=== PATIENT | male | born 1975 | race Caucasian/White ===

== ENCOUNTER 2024-04-17 18:52 | Inpatient (IN) ==
--- NOTE | 2024-04-17 19:10 | Emergency Department Note ---
Impression & Plan Sepsis, Pneumonia, Leukocytosis, Elevated procalcitonin ED Provider Note HISTORY OF PRESENT ILLNESS: Patient is a 48-year-old male presenting with cough and fevers. Patient reports for the last 3 to 4 days he has been having flulike symptoms. Reports he had a fever up to 102. He states that he had a very bad night last night and was unable to sleep. Reports that he has pain in his left lower chest and it hurts to take a deep breath. Reports he has a cough productive of white-colored sputum. Denies any hemoptysis. Denies any DVT or PE history. He denies any anticoagulation or antiplatelet use. He reports that he last took a dose of antipyretic Tylenol at 1 PM. He reports that his entire chest hurts. He denies any recent sick contact exposures that he knows of. Denies any nausea or vomiting. ROS: as above PHYSICAL EXAM: Constitutional: Patient appears in no acute distress. HENT: Head: Normocephalic and atraumatic. Eyes: EOMI, PERRL Mouth/Throat: Mucous membranes moist. Neck: Trachea midline. Neck supple. Cardiovascular: RRR, No murmurs, rubs or gallops. Intact distal pulses. Pulmonary/Chest: No respiratory distress. Breath sounds clear and equal bilaterally. No wheezes or rales. Abdominal: Abdomen soft, no tenderness, rebound or guarding. Musculoskeletal: No edema, tenderness or deformity noted. Skin: Warm and dry. No rash, erythema, pallor or cyanosis Psychiatric: Appropriate mood and affect for situation. Neurological: Alert and keenly responsive. CN II-XII grossly intact, moving all extremities equally and fully. MDM: - Vitals signs showed hypertension and tachycardia. - History obtained via patient. History as above. - Chronic conditions affecting care: paraplegia (s/p T8 spinal cord injury); urinary incontinence; GERD - Differential diagnoses include, but are not limited to: pneumonia; PE; viral syndrome; ACS; pulmonary edema - Order placed for continuous cardiac monitoring. At this time, monitor showed rate of 93 bpm with normal sinus rhythm, per my interpretation. - External medical records reviewed. - EKG image interpreted by myself showed normal sinus rhythm. Rate 92 bpm. QT 332. No acute ischemic changes. - Laboratory workup interpreted by myself showed leukocytosis (WBC 13.58); normal PT/INR; normal lactate; stable electrolytes; normal troponin; normal AST/ALT; elevated procalcitonin (1.5) - Viral respiratory panel negative - CXR image reviewed by myself showed left lower lobe pneumonia, per my interpretation. Radiology confirms a left lower lobe airspace opacity but also notes a right middle lobe opacification concerning for pneumonia. - Blood cultures obtained - Patient given 2.5L NS. Patient's sepsis fluid volume calculation based on ideal body weight is 2427.00 mL - Patient started on IV vancomycin and rocephin for sepsis coverage. - Discussion was had with returned case inspector about patient's case and need for admission - Hospitalist, Dr. Hough, consulted for admission - Patient admitted to [facility] service for further evaluation and management. I have personally spent 33 minutes of critical care time in the direct management of this patient. This includes bedside care, interpretation of diagnostic studies, and testing, discussion with consultants, patient, and family members, and other required patient management activities. This 33 minutes is in excess of all separately billable procedures. 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 NO SENSATION FROM T8 DOWN. Nerve pain REASON FOR GABAPENTIN Surgical History Fusion of spine T4-T11 History of tooth extraction Hx of LASIK S/P Botox injection TO BLADDER IN PAST Family History Father Family history of diabetes mellitus Social History Smoking Status: Never smoker Second Hand Exposure: No; Do You Dip or Chew Tobacco: No; Hx Alcohol Use: Yes Alcohol type: beer and hard liquor Hx Substance Use: No Preferred Language: Omani Communication Ability: Effective Research Rn Spec Required: No Beliefs That Will Affect Care: None Current Living Situation: Alone Feels Safe at Home: Yes Assistive Devices: Wheelchair Allergies Allergies Allergy/AdvReac Type Severity Reaction Status Date / Time Penicillins Allergy Intermediate HIVES Verified 09/30/18 05:56 Home Meds Home Medications Medication Instructions Recorded Confirmed Medical Marijuana 1 dose inhalation UD PRN NEEDED 09/23/18 09/30/18 acyclovir 400 mg tablet 400 mg PO BID 09/23/18 09/30/18 ascorbic acid (vitamin C) 500 mg 500 mg PO DAILY 09/23/18 09/30/18 tablet (Vitamin C) cranberry extract-vitamin C 250 1 cap PO DAILY 09/23/18 09/30/18 mg-60 mg capsule docusate sodium 100 mg tablet 100 mg PO BID 09/23/18 09/30/18 gabapentin 600 mg tablet 600 mg PO TID 09/23/18 09/30/18 oxybutynin chloride 10 mg 10 mg PO BID 09/23/18 09/30/18 tablet,extended release 24 hr oxycodone 5 mg tablet 5 mg PO Q4H PRN Pain 09/23/18 09/30/18 ranitidine HCl 150 mg tablet 150 mg PO BID 09/23/18 09/23/18 Previous Rx's Medication Instructions Recorded phenazopyridine 200 mg tablet 200 mg PO Q8H PRN pain #9 tabs 09/30/18 (Pyridium) Results & Data (ED) Vital Signs Vital Signs - 24 hr 04/17/24 18:52 04/17/24 18:52 04/17/24 18:55 Temperature 36.5 C Temperature Source Oral Pulse Rate 104 H Pulse Rate [Left Apical] Respiratory Rate 18 Respiratory Effort / Characteristics Non-Labored Spontaneous Respiratory Depth Normal Respiratory Pattern Regular Blood Pressure 146/73 H Blood Pressure [Right Arm] Blood Pressure Mean 97 Blood Pressure Mean [Right Arm] Blood Pressure Position Sitting Blood Pressure Position [Right Arm] Pulse Oximetry 95 96 Oxygen Delivery Method Room Air Room Air Room Air Sepsis Recent Fever Within 48 Hours Yes Sepsis New/Unexplained Change in Mental Status N/A Sepsis Action Taken by Nursing No Action Required 04/17/24 19:04 04/17/24 19:08 04/17/24 20:04 Temperature Temperature Source Pulse Rate 97 H Pulse Rate [Left Apical] 95 H Respiratory Rate 17 Respiratory Effort / Characteristics Non-Labored Spontaneous Respiratory Depth Normal Respiratory Pattern Regular Blood Pressure Blood Pressure [Right Arm] 114/64 Blood Pressure Mean Blood Pressure Mean [Right Arm] 80 Blood Pressure Position Blood Pressure Position [Right Arm] Semi-fowlers Pulse Oximetry 95 98 Oxygen Delivery Method Room Air Room Air Sepsis Recent Fever Within 48 Hours Sepsis New/Unexplained Change in Mental Status Sepsis Action Taken by Nursing Laboratory Data 04/17/24 19:15 04/17/24 19:15 Lab Results 04/17/24 04/17/24 Range/Units 19:15 19:59 WBC 13.58 H (4.8-10.8) K/ul RBC 4.46 L (4.70-6.10) M/uL Hgb 13.3 L (14.0-18.0) g/dl Hct 39.2 L (42.0-52.0) % MCV 87.9 (80.0-100.0) fL MCH 29.8 (25.0-34.0) pg MCHC 33.9 (32.0-36.0) g/dL RDW Std Deviation 43.3 (36.4-46.3) fL RDW Coeff of Michael 13.3 (11.5-14.5) % Plt Count 366 (130-400) K/uL MPV 10.2 (9.4-12.4) fL Immature Gran % (Auto) 0.4 % Neut % (Auto) 79.0 % Lymph % (Auto) 11.6 % [place] % (Auto) 6.8 % Eos % (Auto) 1.5 % Baso % (Auto) 0.7 % Neut # (Auto) 10.72 H (1.40-6.50) K/uL Lymph # (Auto) 1.57 (1.20-3.40) K/uL [place] # (Auto) 0.92 H (0.11-0.59) K/uL Eos # (Auto) 0.21 (0.00-0.50) K/uL Baso # (Auto) 0.10 (0.00-0.20) K/uL Immature Gran # (Auto) 0.06 (0.01-0.20) K/uL PT 10.9 (9.0-12.0) Seconds INR 1.0 (0.9-1.1) Sodium 135 L (136-145) mmol/L Potassium 3.7 (3.5-5.1) mmol/L Chloride 103 (98-107) mmol/L Carbon Dioxide 27 (21-32) mmol/L Anion Gap 5 (3-11) BUN 14 (6-23) mg/dl Creatinine 0.83 (0.6-1.4) mg/dl Est Cr Clr Drug Dosing 118.2 ml/min eGFR 107.29 BUN/Creatinine Ratio 16.9 (10-20) Glucose 134 H (70-99(Fasting)) mg/dl Lactate 1.3 (0.4-2.0) mmol/L Calcium 9.3 (8.6-10.3) mg/dl Magnesium 2.1 (1.7-2.4) mg/dl Total Bilirubin 0.6 (0.2-1.0) mg/dl AST 23 (13-39) U/L ALT 30 (7-52) U/L Alkaline Phosphatase 114 H (34-104) U/L Troponin I High Sens 6.4 (0-20) pg/ml Total Protein 7.7 (6.0-8.3) gm/dl Albumin 3.7 (3.4-5.0) gm/dl Globulin 4.0 (2.5-4.0) gm/dl Albumin/Globulin Ratio 0.9 (0.9-2) Procalcitonin 1.50 H (0-0.5) ng/ml Adenovirus (PCR) Not Detected (NotDetected) B. pertussis DNA (PCR) Not Detected (NotDetected) B.parapertussis DNA PCR Not Detected (NotDetected) C. pneumoniae DNA (PCR) Not Detected (NotDetected) Coronavirus OC43 (PCR) Not Detected (NotDetected) Coronavirus HKU1 (PCR) Not Detected (NotDetected) Coronavirus 229E (PCR) Not Detected (NotDetected) SARS-CoV-2 (PCR) Not Detected (NotDetected) Coronavirus NL63 (PCR) Not Detected (NotDetected) Human Metapneumovir PCR Not Detected (NotDetected) Influenza Type A (PCR) Not Detected (NotDetected) Influenza Type B (PCR) Not Detected (NotDetected) M. pneumoniae (PCR) Not Detected (NotDetected) Parainfluenza 1 (PCR) Not Detected (NotDetected) Parainfluenza 2 (PCR) Not Detected (NotDetected) Parainfluenza 3 (PCR) Not Detected (NotDetected) Parainfluenza 4 (PCR) Not Detected (NotDetected) RSV (PCR) Not Detected (NotDetected) Entero/Rhino (PCR) Not Detected (NotDetected) Administered Medications Sodium Chloride (Nss) 2,000 mls @ 999 mls/hr IV .Q2H1M ONE Stop: 04/17/24 21:50 Last Admin: 04/17/24 20:10 Dose: 999 mls/hr Documented By: [facility] Imaging Data Radiologist's Impression: Chest X-Ray 04/17/24 19:04 HISTORY: Dyspnea TECHNIQUE: Portable AP radiograph of the chest. COMPARISON: None. FINDINGS: Patchy left lower lung opacity concerning for pneumonia. Right middle lobe opacity could also represent pneumonia. No pneumothorax or effusion. Normal heart size. Left-sided aortic arch. Midline trachea. Thoracic spine fusion hardware. Mild thoracic dextrocurvature. No acute osseous abnormality IMPRESSION: * Patchy left lower lobe airspace opacity concerning for pneumonia. Right middle lobe opacification could also represent pneumonia. * Normal heart size. Electronically signed by Sorin Mcadams 04-17-2024 7:29 PM Discharge Plan Visit Data Chief Complaint: Shortness of Breath/Dyspnea Stated Complaint: FEVER, SOB, HURTS WHEN TAKES A BREATH ED Provider: Prachi Montgomery Discharge Problem: Sepsis, Pneumonia, Leukocytosis, Elevated procalcitonin Forms Stand Alone Forms: [email or web address] Prescriptions Prescriptions: No Action gabapentin 600 mg Tablet 600 mg PO TID oxybutynin chloride 10 mg Tablet Extended Release 24hr 10 mg PO BID acyclovir 400 mg Tablet 400 mg PO BID ascorbic acid (vitamin C) [Vitamin C] 500 mg Tablet 500 mg PO DAILY ranitidine HCl 150 mg Tablet 150 mg PO BID docusate sodium 100 mg Tablet 100 mg PO BID oxycodone 5 mg Tablet 5 mg PO Q4H PRN (Reason: Pain) cranberry extract-vitamin C 250-60 mg Capsule 1 cap PO DAILY Medical Marijuana 1 dose inhalation UD PRN (Reason: NEEDED) Rx Instructions: USES VIA VAPING phenazopyridine [Pyridium] 200 mg tablet 200 mg PO Q8H PRN (Reason: pain) Qty: 9 0RF Referrals Referrals: Rigoberto Rodriguez MD [Primary Care Provider] -
--- NOTE | 2024-04-17 19:29 | XRay Report ---
HISTORY: Dyspnea TECHNIQUE: Portable AP radiograph of the chest. COMPARISON: None. FINDINGS: Patchy left lower lung opacity concerning for pneumonia. Right middle lobe opacity could also represent pneumonia. No pneumothorax or effusion. Normal heart size. Left-sided aortic arch. Midline trachea. Thoracic spine fusion hardware. Mild thoracic dextrocurvature. No acute osseous abnormality IMPRESSION: * Patchy left lower lobe airspace opacity concerning for pneumonia. Right middle lobe opacification could also represent pneumonia. * Normal heart size. Electronically signed by Sorin Mcadams 04-17-2024 7:29 PM
[2024-04-17 19:43] LABS: Basophils % (auto) 0.7 %; Eosinophils # (auto) 0.21 K/uL (0.00-0.50); Eosinophils % (auto) 1.5 %; Hematocrit (blood only) 39.2 % (42.0-52.0); Hemoglobin 13.3 g/dl (14.0-18.0); Immature Granulocytes # (auto) 0.06 K/uL (0.01-0.20); Immature Granulocytes % (auto) 0.4 %; Lymphocytes # (auto) 1.57 K/uL (1.20-3.40); Lymphocytes % (auto) 11.6 %; Mean Corpuscular Hemoglobin 29.8 pg (25.0-34.0); Mean Corpuscular Hgb Conc 33.9 g/dL (32.0-36.0); Mean Corpuscular Volume 87.9 fL (80.0-100.0); Mean Platelet Volume 10.2 fL (9.4-12.4); Monocytes # (auto) 0.92 K/uL (0.11-0.59); Monocytes % (auto) 6.8 %; Neutrophils # (auto) 10.72 K/uL (1.40-6.50); Platelet Count 366 K/uL (130-400); RDW Coefficient of Variation 13.3 % (11.5-14.5); RDW Standard Deviation 43.3 fL (36.4-46.3); Red Blood Count 4.46 M/uL (4.70-6.10); White Blood Count 13.58 K/ul (4.8-10.8)
[2024-04-17 19:48] LABS: Albumin Globulin Ratio 0.9 (0.9-2); Albumin Level 3.7 gm/dl (3.4-5.0); BUN Creatinine Ratio 16.9 (10-20); Bilirubin,Total 0.6 mg/dl (0.2-1.0); Calcium 9.3 mg/dl (8.6-10.3); Creatinine Clr Calc Pharmacy 118.2 ml/min; Magnesium 2.1 mg/dl (1.7-2.4); Potassium 3.7 mmol/L (3.5-5.1); Total Protein 7.7 gm/dl (6.0-8.3)
[2024-04-17 19:55] LABS: Prothrombin Time 10.9 Seconds (9.0-12.0); Troponin I High Sensitivity 6.4 pg/ml (0-20)
[2024-04-17] MEDS: SODIUM CHLORIDE 0.9% 2,000 ML IV ONE (20:10)
[2024-04-17 20:20] LABS: Adenovirus PCR Not Detected (NotDetected); Bordetella parapertussis PCR Not Detected (NotDetected); Bordetella pertussis PCR Not Detected (NotDetected); Chlamydia pneumoniae PCR Not Detected (NotDetected); Coronavirus 229E PCR Not Detected (NotDetected); Coronavirus CoV-2 (COVID19)PCR Not Detected (NotDetected); Coronavirus HKU1 PCR Not Detected (NotDetected); Coronavirus NL63 PCR Not Detected (NotDetected); Coronavirus OC43PCR Not Detected (NotDetected); Human Metapneumovirus PCR Not Detected (NotDetected); Influenza A PCR Not Detected (NotDetected); Influenza B PCR Not Detected (NotDetected); Mycoplasma pneumoniae PCR Not Detected (NotDetected); Parainfluenza Virus 1 PCR Not Detected (NotDetected); Parainfluenza Virus 2 PCR Not Detected (NotDetected); Parainfluenza Virus 3 PCR Not Detected (NotDetected); Parainfluenza Virus 4 PCR Not Detected (NotDetected); Respiratory Syncytial VirusPCR Not Detected (NotDetected); Rhinovirus/Enterovirus PCR Not Detected (NotDetected)
[2024-04-17] MEDS ORDERED: VANCOMYCIN CONSULT ACTIVE PRN (20:29)
[2024-04-17] MEDS: cefTRIAXone SODIUM 2,000 MG/50 ML BAG IV STA (21:52)
[2024-04-17] MEDS: VANCOMYCIN HCL 1,500 MG in SODIUM CHLORIDE 0.9% 500 ML IV ONE (21:52)
[2024-04-17] MEDS: NSS + 20MEQ KCL 20 MEQ/1,000 ML BAG IV ONE (21:52)
[2024-04-17] MEDS: SODIUM CHLORIDE 0.9% 1,000 ML IV ONE (21:53)
[2024-04-17] MEDS: SODIUM CHLORIDE 0.9% 500 ML IV ONE (21:53)
[2024-04-17] MEDS: AZITHROMYCIN 250 MG TAB PO ONE (21:53)
--- NOTE | 2024-04-17 22:47 | History & Physical Report ---
Date of Service April 17, 2024 Assessment & Plan (1) Sepsis: Plan: Sepsis secondary to community-acquired pneumonia Rule out PE given pruritic chest pain complaints hyperlipidemia, not on statin Rx neurogenic bladder/paraplegia secondary to traumatic thoracic spinal cord injury GERD, stable on H2 kevin genital herpes on chronic HSV Rx Hyperglycemia rule out DM New onset anemia, patient denies overt bleed symptoms Admit to medical telemetry CS, ceftriaxone, doxycycline CT chest PE study Anemia workup, patient currently refusing to sign blood consent for prospective blood transfusion Check hemoglobin A1c DVT prophylaxis with Lovenox subcu Full code Text document was generated using [employer] voice recognition software. It may contain grammatical or spelling errors. Kindly contact undersigned for clarification of any documentation item in question. History of Present Illness Chief Complaint: Cough, shortness of breath Primary Care Provider: Rigoberto Rodriguez MD History obtained from patient and records. 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 Few days history of junky cough symptoms associated with fever chills. Pleuritic chest pain associated with SOB. Denies aspiration. Denies abdominal pain/hematuria/black/bloody stools. Not sure about sick contacts. Vancomycin, ceftriaxone and azithromycin administered at the ER. 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 Allergies Allergy/AdvReac Type Severity Reaction Status Date / Time Penicillins Allergy Intermediate HIVES Verified 04/17/24 20:49 Home Medications Medication Instructions Recorded Confirmed Type Medical Marijuana 1 dose inhalation UD PRN NEEDED 09/23/18 04/17/24 History acyclovir 400 mg tablet 400 mg PO BID 09/23/18 04/17/24 History oxybutynin chloride 10 mg 10 mg PO BID 09/23/18 04/17/24 History tablet,extended release 24 hr oxycodone 5 mg tablet 5 mg PO Q4H PRN Pain 09/23/18 04/17/24 History famotidine 20 mg tablet 20 mg PO BID 04/17/24 04/17/24 History gabapentin 300 mg capsule 600 mg PO TID 04/17/24 04/17/24 History Past Med/Surg History Problem List (Updated 04/17/24 @ 20:41 by Prachi Montgomery MD) Elevated procalcitonin (Acute) Leukocytosis (Acute) Pneumonia (Acute) Sepsis (Acute) Encounter for pre-operative examination 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 NO SENSATION FROM T8 DOWN. Nerve pain REASON FOR GABAPENTIN Surgical History Fusion of spine T4-T11 History of tooth extraction Hx of LASIK S/P Botox injection TO BLADDER IN PAST Family History Father Family history of diabetes mellitus Social History Smoking Status: Never smoker Second Hand Exposure: No; Do You Dip or Chew Tobacco: No; Hx Alcohol Use: No Hx Substance Use: No Preferred Language: Botswanan Communication Ability: Effective [facility] Consultant Required: No Beliefs That Will Affect Care: None Current Living Situation: Alone Feels Safe at Home: Yes Safety Concerns: Feels Safe At This Time Assistive Devices: Glasses and Wheelchair Review of Systems Review of Systems: As per HPI, all other systems reviewed and negative Physical Exam Physical Exam: GENERAL: Slightly uncomfortable, no respiratory distress SKIN: Pallor, warm HEENT: Pale palpebral conjunctivae, no ptosis, dry buccal mucosa NECK : Supple, no tenderness CHEST : Decreased breath sounds, no tenderness HEART : Tachycardic, no obvious murmurs ABDOMEN: Some distention, nontender RECTAL : Refused EXTREMITIES : No LE swelling/tenderness, palpable pulses, no other conspicuous deformities noted NEUROLOGIC : Coherent, no facial asymmetry, MMTS BUE 4/5, BLE 0, episodic RLE spasm, gait and stance not assessed Results & Data Results & Data Vital Signs (Past 12 Hours) Vital Signs Temp Pulse Pulse Resp BP BP Pulse Ox 04/17/24 20:04 95 H 17 114/64 98 04/17/24 19:08 97 H 04/17/24 19:04 95 04/17/24 18:55 36.5 C 104 H 18 146/73 H 96 04/17/24 18:52 95 04/17/24 18:52 O2 Del Method 04/17/24 20:04 Room Air 04/17/24 19:08 04/17/24 19:04 Room Air 04/17/24 18:55 Room Air 04/17/24 18:52 Room Air 04/17/24 18:52 Room Air Laboratory Results Laboratory Results WBC 13.58 K/ul (4.8-10.8) H 04/17/24 19:15 RBC 4.46 M/uL (4.70-6.10) L 04/17/24 19:15 Hgb 13.3 g/dl (14.0-18.0) L 04/17/24 19:15 Hct 39.2 % (42.0-52.0) L 04/17/24 19:15 MCV 87.9 fL (80.0-100.0) 04/17/24 19:15 MCH 29.8 pg (25.0-34.0) 04/17/24 19:15 MCHC 33.9 g/dL (32.0-36.0) 04/17/24 19:15 RDW Std Deviation 43.3 fL (36.4-46.3) 04/17/24 19:15 RDW Coeff of Michael 13.3 % (11.5-14.5) 04/17/24 19:15 Plt Count 366 K/uL (130-400) 04/17/24 19:15 MPV 10.2 fL (9.4-12.4) 04/17/24 19:15 Immature Gran % (Auto) 0.4 % 04/17/24 19:15 Neut % (Auto) 79.0 % 04/17/24 19:15 Lymph % (Auto) 11.6 % 04/17/24 19:15 [place] % (Auto) 6.8 % 04/17/24 19:15 Eos % (Auto) 1.5 % 04/17/24 19:15 Baso % (Auto) 0.7 % 04/17/24 19:15 Neut # (Auto) 10.72 K/uL (1.40-6.50) H 04/17/24 19:15 Lymph # (Auto) 1.57 K/uL (1.20-3.40) 04/17/24 19:15 [place] # (Auto) 0.92 K/uL (0.11-0.59) H 04/17/24 19:15 Eos # (Auto) 0.21 K/uL (0.00-0.50) 04/17/24 19:15 Baso # (Auto) 0.10 K/uL (0.00-0.20) 04/17/24 19:15 Immature Gran # (Auto) 0.06 K/uL (0.01-0.20) 04/17/24 19:15 PT 10.9 Seconds (9.0-12.0) 04/17/24 19:15 INR 1.0 (0.9-1.1) 04/17/24 19:15 Sodium 135 mmol/L (136-145) L 04/17/24 19:15 Potassium 3.7 mmol/L (3.5-5.1) 04/17/24 19:15 Chloride 103 mmol/L (98-107) 04/17/24 19:15 Carbon Dioxide 27 mmol/L (21-32) 04/17/24 19:15 Anion Gap 5 (3-11) 04/17/24 19:15 BUN 14 mg/dl (6-23) 04/17/24 19:15 Creatinine 0.83 mg/dl (0.6-1.4) 04/17/24 19:15 Est Cr Clr Drug Dosing 118.2 ml/min 04/17/24 19:15 eGFR 107.29 04/17/24 19:15 BUN/Creatinine Ratio 16.9 (10-20) 04/17/24 19:15 Glucose 134 mg/dl (70-99(Fasting)) H 04/17/24 19:15 Lactate 1.3 mmol/L (0.4-2.0) 04/17/24 19:59 Calcium 9.3 mg/dl (8.6-10.3) 04/17/24 19:15 Magnesium 2.1 mg/dl (1.7-2.4) 04/17/24 19:15 Total Bilirubin 0.6 mg/dl (0.2-1.0) 04/17/24 19:15 AST 23 U/L (13-39) 04/17/24 19:15 ALT 30 U/L (7-52) 04/17/24 19:15 Alkaline Phosphatase 114 U/L (34-104) H 04/17/24 19:15 Troponin I High Sens 6.4 pg/ml (0-20) 04/17/24 19:15 Total Protein 7.7 gm/dl (6.0-8.3) 04/17/24 19:15 Albumin 3.7 gm/dl (3.4-5.0) 04/17/24 19:15 Globulin 4.0 gm/dl (2.5-4.0) 04/17/24 19:15 Albumin/Globulin Ratio 0.9 (0.9-2) 04/17/24 19:15 Procalcitonin 1.50 ng/ml (0-0.5) H 04/17/24 19:15 Adenovirus (PCR) Not Detected (NotDetected) 04/17/24 19:15 B. pertussis DNA (PCR) Not Detected (NotDetected) 04/17/24 19:15 B.parapertussis DNA PCR Not Detected (NotDetected) 04/17/24 19:15 C. pneumoniae DNA (PCR) Not Detected (NotDetected) 04/17/24 19:15 Coronavirus OC43 (PCR) Not Detected (NotDetected) 04/17/24 19:15 Coronavirus HKU1 (PCR) Not Detected (NotDetected) 04/17/24 19:15 Coronavirus 229E (PCR) Not Detected (NotDetected) 04/17/24 19:15 SARS-CoV-2 (PCR) Not Detected (NotDetected) 04/17/24 19:15 Coronavirus NL63 (PCR) Not Detected (NotDetected) 04/17/24 19:15 Human Metapneumovir PCR Not Detected (NotDetected) 04/17/24 19:15 Influenza Type A (PCR) Not Detected (NotDetected) 04/17/24 19:15 Influenza Type B (PCR) Not Detected (NotDetected) 04/17/24 19:15 M. pneumoniae (PCR) Not Detected (NotDetected) 04/17/24 19:15 Parainfluenza 1 (PCR) Not Detected (NotDetected) 04/17/24 19:15 Parainfluenza 2 (PCR) Not Detected (NotDetected) 04/17/24 19:15 Parainfluenza 3 (PCR) Not Detected (NotDetected) 04/17/24 19:15 Parainfluenza 4 (PCR) Not Detected (NotDetected) 04/17/24 19:15 RSV (PCR) Not Detected (NotDetected) 04/17/24 19:15 Entero/Rhino (PCR) Not Detected (NotDetected) 04/17/24 19:15 Impressions Chest X-Ray 04/17/24 19:04 HISTORY: Dyspnea TECHNIQUE: Portable AP radiograph of the chest. COMPARISON: None. FINDINGS: Patchy left lower lung opacity concerning for pneumonia. Right middle lobe opacity could also represent pneumonia. No pneumothorax or effusion. Normal heart size. Left-sided aortic arch. Midline trachea. Thoracic spine fusion hardware. Mild thoracic dextrocurvature. No acute osseous abnormality IMPRESSION: * Patchy left lower lobe airspace opacity concerning for pneumonia. Right middle lobe opacification could also represent pneumonia. * Normal heart size. Electronically signed by Sorin Mcadams 04-17-2024 7:29 PM Diagnostic Findings EKG as per my interpretation :
[2024-04-17 22:58] LABS: Appearance Urine Clear (Clear); Bacteria Urine Automated None Seen (None Seen); Bilirubin Urine Negative (Negative); Blood Urine Negative (Negative); Cast Urine Automated 0-2 /lpf (0-2); Color Urine Yellow; Glucose Urine UA Trace (Negative); Ketones Urine Trace (Negative); Leukocyte Esterase Urine Negative (Negative); Mucus Urine Present (None Prsent); Nitrite Urine Negative (Negative); Protein Urine 1+ (Negative); Urobilinogen Urine Negative (Negative); WBC Urine Automated 0-5 /hpf (0-5); pH Urine 5.5 (4.5-7.5)
[2024-04-17] MEDS ORDERED: PROMETHAZINE 6.25 MG/50.25 ML BAG IV PRN (23:09)
[2024-04-17] MEDS ORDERED: LORazepam 0.5 MG TAB PO PRN (23:09)
[2024-04-17] MEDS: OPTIRAY 320 125ml IV ONE (23:51)
[2024-04-17] MEDS: GABAPENTIN 300 MG CAP PO SCH (23:56)
--- OUTSIDE RECORDS SUMMARY | 2024-04-18 00:12 | External Medical Summary | Summary of Care ---
Author Name Unknown Organization [facility] Address [address] [place] [address] Phone [phone] Care Team Providers Care Director Of Sustainability Name Role Phone Rigoberto Rodriguez MD Primary Care Provider +1- [phone] Reason for Visit * Reason Onset Date Comments Pre Cert/Prior Auth 04/16/2024 Oxycodone Encounter Details Date Type Department Care Team (Late st Contact Info) Description 04/16/2024 Telephone [facility] [address] [facility] [place] [address] Rigoberto Rodriguez MD [address] [place], [place] [id number] Pre Cert/Prior Auth (Oxycodone) Allergies Active Allergy Reactions Criticality Noted Date Comments Penicillins Hives 10/06/2020 Had hives on chest with trial of PCN September 2020 Tolerated ampicillin Tolerated amoxicillin Tolerated ceftriaxone Tolerated cefazolin documented as of this encounter (statuses as of 04/16/2024) Medications BISACODYL 10 MG AK SUPPIndications: Unspecified site of spinal cord injury without evidence of spinal bone injury,Paraplegi a (HCC),Closed fracture of thoracic vertebra (HCC),Acute constipation 1 Suppository AK EVERY OTHER DAY 0 0 8 Active SELF-CATH STRAIGHT TIPPED CATH MISCIndications: Closed fracture of T7-T12 level with complete lesion of cord 14french 180 Device 11 0 Active Ketoconazole 2 % creamIndications :Tinea corporis Apply topically to affected area twice daily until resolved 15 g 1 8 Active Additional Information Patient not taking.Reported on 03/13/2023 One-A-Day Mens (Minerals) Oral Tablet Take by mouth. Activ e Debrox 6.5 % Otic Solution (Carbamide Peroxide) Administer 5 Drops into the left ear in the morning and 5 Drops before bedtime. Fill ear canal and insert cotton plug. Remove plug after 15 to 30 minutes.. 15 mL 4 Active Gabapentin 300 MG Oral Capsule (Neurontin) TAKE 2 CAPSULES BY MOUTH 3 TIMES A DAY 450 Capsule 3 4 Active Famotidine 20 MG Oral Tablet (Pepcid) TAKE 1 TABLET BY MOUTH TWICE A DAY 60 Tablet 5 4 Active Acyclovir 400 MG Oral Tablet (Zovirax)Indicat ions:Herpes simplex virus infection TAKE 1 TABLET BY MOUTH TWICE A DAY 60 Tablet 5 4 Active oxyBUTYnin Chloride ER 10 MG Oral Tablet Extended Release 24 Hour (Ditropan XL)Indications:S rosa cord injury, thoracic region, subsequent encounter (HCC),Chronic retention of urine TAKE 1 TABLET BY MOUTH IN THE MORNING AND BEFORE BEDTIME 180 Tablet 3 5 Active oxyCODONE HCl 5 MG Oral Tablet (Oxy IR)Indications:P araplegia ([facility]) Take 1 Tablet by mouth every 4 hours as needed (pain). 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 Increased risk for Rodriguez Syndrome. Gastroesophageal reflux disease 08/18/2019 Spinal cord injury, thoracic region, subsequent encounter 03/24/2019 MEDICATION USE AGREEMENT 01/09/2017 Overview (01/09/2017): Signed 07/01/16 Neurogenic bladder 10/07/2014 Low back pain 11/17/2013 Paraplegia 08/06/2007 Dyslipidemia, goal LDL below 100 documented as of this encounter (statuses as of 04/16/2024) Resolved Problems Problem Noted Date Diagnosed Date Resolved Date Acute cystitis 08/31/2013 11/03/2017 Neurogenic bladder 06/16/2012 5 Obstipation 01/16/2011 11/03/2017 Abdominal pain 01/16/2011 11/03/2017 Hematuria, gross 01/16/2011 11/03/2017 UTI (urinary tract infection) 01/16/2011 11/03/2017 VIRAL GASTROENTERITIS 05/08/20102012 Diarrhea 2010 11/03/2017 Nausea with vomiting 2010 018 L distal Radius Fx 05/10/2008 9 T7-8 Fx/Disl- T8n Paraplegia 03/15/2008 10/07/2014 Overview (03/15/2008): S/P ORIF, T4-11 Expedium w PSF- July L distal Radius Fx 03/15/2008 8 Overview (03/15/2008): Rx closed- July Neurogenic bladder 01/28/2008 3 Injury, other and unspecifie d, other specified sites, including multiple 08/17/200712/11 Acute constipation 08/13/2007 9 Overview (06/23/2008): Resolved per Benign Acute Dxs Protocol Abnormal blood chemistry 08/07/200711/2008 Unspecified site of spinal c ord injury without evidence of spinal bone injury 08/06/2007 1 02/20/2008 Acute cystitis 08/06/2007 12/20/2008 Closed fracture of thoracic vertebra 08/06/2007 03/15/2008 STREP SORE THROAT 08/16/2002 12/20/2008 DYSFUNCT EUSTACHIAN TUBE 08/16/200211/2008 ACUTE PHARYNGITIS 02/09/2001 04/07/2008 Overview (04/07/2008): Resolved per Benign Acute Dxs Protocol #3 ACUTE URI NOS 02/09/2001 03/31/2008 Overview (03/31/2008): Resolved per Benign Acute Dxs Protocol #3 documented as of this encounter (statuses as of 04/16/2024) Immunizations Name Administration Dates Next Due COVID-19 mRNA, LNP-s, No Pre serve, 2-Dose Series (AwesomeTouch) 06/26/2020,06/05/2020 PPD 10/26/2021 Seasonal Influenza Vac., MDV, IM, 0.5 mL (Fluzon e) 11/30/2007 Seasonal Influenza, PF, 6 M & above, IM , (FluLaval or Fluzone) 11/21/2020,10/25/2019 TD, Preservative Free 07/21/2018 TDAP, Age 7 and older, IM (Adacel) 11/30/2007 documented as of this encounter Social History Tobacco Use Types Packs/Day Years Used Date Smoking Tobacco: Never Smokeless Tobacco: Never Alcohol Use Standard Drinks/Week Comments Yes 0 (1 standard drink = 0.6 oz pur e alcohol) occassional PHQ-2 Answer Date Recorded PHQ Adult Total Score 0 03/10/2024 Hunger Vital Sign Answer Date Recorded Worried About Running Out of Food in the Last Ye ar Never true 08/11/2018 Ran Out of Food in the Last Year Never true 08/11/2018 Comments No Sex and Gender Information Value Date Recorded Sex Assigned at Male 11/21/2020 3:40 PM EDT Legal Sex Male 5:06 AM EST Gender Identity Male 11/21/2020 3:40 PM EDT Sexual Orientation Straight 11/21/2020 3: 40 PM EDT 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 [place]: [id number] Additional information submitted. Awaiting Response. documented in this encounter Plan of Treatment Upcoming Encounters Date Type Department Care Team (Late st Contact Info) Description 07/12/2024 1:40 PM EDT Office Visit [facility] Gay Giordano [address] [phone] Rigoberto Rodriguez MD [address] [facility] [address] [place] [address] Scheduled Procedures Name Priority Associated Diagnoses Date/Ti me COLONOSCOPY FLEXIBLE PROXIMA L DIAGNOSTIC Recall Special screening for malignant neoplasms, colon Health Maintenance Due Date Last Done Comments Lipid Panel 01/17/2016 01/16/2011, 01/16/2011 Cologuard 05/09/2019 Fecal Occult Blood Test 05/09/2019 Sigmoidoscopy 05/09/2019 Influenza Vaccine (FLU shot) (#1) 2023 11/21/2020, 10/25/2019, 11/30/2007 Depression Screening 03/10/2025 03/10/2024 DTap/Tdap Vaccines (3 - Td o r Tdap) 07/21/2028 07/21/2018, 11/30/2007 Colonoscopy 07/19/2030 07/19/2020, 07/19/2020 Colorectal Cancer Screening 07/19/2030 COVID-19 Vaccine Discontinued 06/26/2020, 06/05/2020 HIV Screening Discontinued HPV (Gardasil) Vaccine Aged Out No lo nger eligible based on patient's age to complete this topic Hepatitis B Vaccine Discontinued Hepatitis C Screening Discontinued MENINGOCOCCAL (MENACTRA/MENVEO) Aged Out No longer eligible based on patient's age to complete this topic Meningitis B Vaccine (Bexsero/Trumemba) Aged Out No longer eligible based on patient's age to complete this topic Pneumococcal Vaccine: Pediatrics (0 to 5 Years) and At-Risk Patients (6 to 18 Years and 19+ Years) Aged Out No longer eligible based on patient's age to complete this topic documented as of this encounter Medical Devices Implanted Type Area Communications Instructor Device Identifier Shelf Expiration Date Model / Serial / Lot Graft Healos 5cc 2761-60-005 - [id number] Implanted:Qty : 2 on 08/07/2007 at OR [facility] N/A: Spine Lumbar JAROD & JAROD DEPUY [id number] / / Filter Lukasz Harrison Fem [id number] - [id number] Implanted:Qty : 1 on 08/07/2007 at OR [facility] Right: Quynh [employer] 05/11/2010 [id number] / / [id number] Graft Healos 10 2761-60-010 - [id number] Implanted:Qty : 2 on 08/07/2007 at OR [facility] N/A: Spine Lumbar JAROD & JAROD DEPUY [id number] / / Screw 5x35 Poly Si [id number] - [id number] Implanted:Qty : 4 on 08/07/2007 at OR [facility] N/A: Spine Thoracic JAROD [employer] JAROD DEPUY [id number] / / Screw 6x35 Poly Si [id number] - [id number] Implanted:Qty : 4 on 08/07/2007 at OR [facility] N/A: Spine Thoracic JAROD & JAROD DEPUY [id number] / / Hook Blade Wide [id number] - [id number] Implanted:Qty : 2 on 08/07/2007 at OR [facility] N/A: Spine Thoracic JAROD [employer] JAROD DEPUY [id number] / / Screw Set Sng Inner [id number] - [id number] Implanted:Qty : 14 on 08/07/2007 at OR [facility] N/A: Spine Thoracic JAROD [employer] JAROD DEPUY [id number] / / Screw 6x40 Poly Si [id number] - [id number] Implanted:Qty : 3 on 08/07/2007 at OR [facility] N/A: Spine Thoracic JAROD [employer] JAROD DEPUY [id number] / / Pb 480mm [id number] - [id number] Implanted:Qty : 1 on 08/07/2007 at OR [facility] N/A: Spine Thoracic JAROD [employer] JAROD DEPUY [id number] / / Screw 7x40 Poly Si [id number] - [id number] Implanted:Qty : 2 on 08/07/2007 at OR [facility] N/A: Spine Thoracic JAROD [employer] JAROD DEPUY [id number] / / documented as of this encounter Advance Directives * Full Code (Latest Code Status on File) Date Activated Date Inactivated Comments 12/28/2020 7:52 AM 12/28/2020 3:24 PM This order reflects the patients wishes and were consensually agreed upon. Question Answer Comments Discussion of Advance Directives occurred with: Not Discussed * Full Code Date Activated Date Inactivated Comments 08/23/2019 8:11 AM 08/23/2019 1:14 PM This order r eflects the patients wishes and were consensually agreed upon. * Full Code Date Activated Date Inactivated Comments 12/05/2017 8:19 AM 12/05/2017 2:42 PM This order reflects the patients wishes and were consensually agreed upon. * Full Code Date Activated Date Inactivated Comments 09/27/2016 8:00 AM 09/27/2016 2:22 PM This order r eflects the patients wishes and were consensually agreed upon. * Full Code Date Activated Date Inactivated Comments 05/26/2015 7:12 AM 05/26/2015 1:54 PM This order r eflects the patients wishes and were consensually agreed upon. Care Teams Director Of Sustainability Relationship Specialty Start Date End Date Rigoberto Rodriguez MD [address] [address] PCP - General Family Medicine 03/27/18 documented as of this encounter
--- OUTSIDE RECORDS SUMMARY | 2024-04-18 00:12 | External Medical Summary | Summary of Care ---
Author Name Unknown Organization [facility] Address [address] [place] [address] Phone [phone] Care Team Providers Care Employee Communications Coordinator Name Role Phone Rigoberto Rodriguez MD Primary Care Provider +1- [phone] Reason for Visit * Reason Onset Date Comments Nurse Documentation 04/14/2024 Encounter Details Date Type Department Care Team (Late st Contact Info) Description 04/14/2024 Telephone [facility] [address] [facility] [place] [address] Rigoberto Rodriguez MD [address] [place] [address] Nurse Documentation Allergies Active Allergy Reactions Criticality Noted Date Comments Penicillins Hives 10/06/2020 Had hives on chest with trial of PCN September 2020 Tolerated ampicillin Tolerated amoxicillin Tolerated ceftriaxone Tolerated cefazolin documented as of this encounter (statuses as of 04/14/2024) Medications BISACODYL 10 MG MN SUPPIndications: Unspecified site of spinal cord injury without evidence of spinal bone injury,Paraplegi a (HCC),Closed fracture of thoracic vertebra (HCC),Acute constipation 1 Suppository MN EVERY OTHER DAY 0 0 8 Active [...] 5 MG Oral Tablet (Oxy IR)Indications:P araplegia (HCC) Take 1 Tablet by mouth every 4 hours as needed (pain). 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 Increased risk for Rodriguez Syndrome. Gastroesophageal reflux disease 08/18/2019 Spinal cord injury, thoracic region, subsequent encounter 03/24/2019 MEDICATION USE AGREEMENT 01/09/2017 Overview (01/09/2017): Signed 07/01/16 Neurogenic bladder 10/07/2014 Low back pain 11/17/2013 Paraplegia 08/06/2007 Dyslipidemia, goal LDL below 100 documented as of this encounter (statuses as of 04/14/2024) Resolved Problems Problem Noted Date Diagnosed Date [...] as of this encounter (statuses as of 04/14/2024) Immunizations Name Administration Dates Next Due COVID-19 mRNA, LNP-s, No Pre serve, 2-Dose Series (Pfizer) 06/26/2020,06/05/2020 PPD 10/26/2021 Seasonal Influenza Vac., MDV, [...] encounter Miscellaneous Notes * Telephone Encounter - Silvia Mobley MED ASSIST - 04/14/2024 11:36 AM EST Received Fax for BFPROVIDERS: Dr. Rigoberto Rodriguez FORM received from [facility] and FAXED documented in this encounter Plan of Treatment Upcoming Encounters Date Type Department Care Team (Late st Contact Info) Description 07/12/2024 1:40 PM EDT [facility] [place] [address] [address] Rigoberto Rodriguez MD [address] [address] Scheduled Procedures Name Priority Associated Diagnoses Date/Ti [...] this encounter Medical Devices Implanted Type Area Executive Meeting Manager Device Identifier Shelf Expiration Date Model / Serial / Lot Graft Healos 5cc 2761-60-005 - [id number] Implanted:Qty : 2 on 08/07/2007 at OR [facility] N/A: Spine Lumbar JAROD [employer] JAROD DEPUY [id number] / / Filter Lukasz Lopez [id number] - [id number] Implanted:Qty : 1 on 08/07/2007 at OR [facility] Right: Quynh [employer] 05/11/2010 [id number] / / [id number] Graft Healos [facility] 2761-60-010 - [id number] Implanted:Qty : 2 on 08/07/2007 at OR [facility] N/A: Spine Lumbar JAROD [employer] JAROD DEPUY [id number] / / Screw 5x35 Poly Si [id number] - [id number] Implanted:Qty : 4 on 08/07/2007 at OR [facility] N/A: Spine Thoracic JAROD [employer] JAROD DEPUY [id number] / / Screw 6x35 Poly Si [id number] - [id number] Implanted:Qty : 4 on 08/07/2007 at OR [facility] N/A: Spine Thoracic JAROD & JAROD DEPUY [id number] / / Hook Blade Wide [id number] - [id number] Implanted:Qty : 2 on 08/07/2007 at OR [facility] N/A: Spine Thoracic JAROD [employer] JAROD DEPUY [id number] / / Screw Set Sng Inner [id number] - [id number] Implanted:Qty : 14 on 08/07/2007 at OR [facility] N/A: Spine Thoracic JAROD [employer] JAROD DEPUY [id number] / / Screw 6x40 Poly Si [id number] - [id number] Implanted:Qty : 3 on 08/07/2007 at OR [facility] N/A: Spine Thoracic JAROD & JAROD DEPUY [id number] / / Pb 480mm [id number] - [id number] Implanted:Qty : 1 on 08/07/2007 at OR [facility] N/A: Spine Thoracic JAROD & JAROD DEPUY [id number] / / Screw 7x40 Poly Si [id number] - [id number] Implanted:Qty : 2 on 08/07/2007 at OR [facility] N/A: Spine Thoracic JAROD & JAROD DEPUY [id number] / / documented as of this encounter [...] and were consensually agreed upon. Care Teams Employee Communications Coordinator Relationship Specialty Start Date End Date Rigoberto Rodriguez MD [address] [address] PCP - General Family Medicine 03/27/18 documented as of this encounter
--- OUTSIDE RECORDS SUMMARY | 2024-04-18 00:12 | External Medical Summary | Summary of Care ---
Author Name Unknown Organization [facility] Address [address] [place] [address] Phone [phone] Care Team Providers Care Social Science Research Assistant Name Role Phone Siomara Muñiz MD Primary Care Provider +1- [phone] Reason for Visit * Reason Onset Date Comments Medication Refill 04/14/2024 Encounter Details Date Type Department Care Team (Late st Contact Info) Description 04/14/2024 [facility] [address] [facility] [place] [address] Siomara Muñiz MD [address] [place] [address] Paraplegia (HCC) Allergies Active Allergy Reactions Criticality Noted Date Comments Penicillins Hives 10/06/2020 Had hives on chest with trial of PCN September 2020 Tolerated ampicillin Tolerated amoxicillin Tolerated ceftriaxone Tolerated cefazolin documented as of this encounter (statuses as of 04/16/2024) Medications BISACODYL 10 MG ND SUPPIndications: Unspecified site of spinal cord injury without evidence of spinal bone injury,Paraplegi a (HCC),Closed fracture of thoracic vertebra (HCC),Acute constipation 1 Suppository ND EVERY OTHER DAY 0 0 08/17/19 08 Active SELF-CATH STRAIGHT TIPPED CATH MISCIndications: Closed fracture of T7-T12 level with complete lesion of cord 14french 180 Device 11 10/27/19 10 Active Ketoconazole 2 % creamIndications :Tinea corporis Apply topically to affected area twice daily until resolved 15 g 1 02/28/19 18 Active Additional Information Patient not taking.Reported on 03/13/2023 One-A-Day Mens (Minerals) Oral Tablet Take by mouth. Activ e Debrox 6.5 % Otic Solution (Carbamide Peroxide) Administer 5 Drops into the left ear in the morning and 5 Drops before bedtime. Fill ear canal and insert cotton plug. Remove plug after 15 to 30 minutes.. 15 mL 12/25/19 24 Active Gabapentin 300 MG Oral Capsule (Neurontin) TAKE 2 CAPSULES BY MOUTH 3 TIMES A DAY 450 Capsule 3 01/06/20 24 Active Famotidine 20 MG Oral Tablet (Pepcid) TAKE 1 TABLET BY MOUTH TWICE A DAY 60 Tablet 5 01/29/20 24 Active Acyclovir 400 MG Oral Tablet (Zovirax)Indicat ions:Herpes simplex virus infection TAKE 1 TABLET BY MOUTH TWICE A DAY 60 Tablet 5 01/29/20 24 Active oxyBUTYnin Chloride ER 10 MG Oral Tablet Extended Release 24 Hour (Ditropan XL)Indications:S rosa cord injury, thoracic region, subsequent encounter (HCC),Chronic retention of urine TAKE 1 TABLET BY MOUTH IN THE MORNING AND BEFORE BEDTIME 180 Tablet 3 02/25/19 25 Active oxyCODONE HCl 5 MG Oral Tablet (Oxy IR)Indications:P araplegia (HCC) Take 1 Tablet by mouth every 4 hours as needed (pain). 150 Tablet 04/16/19 25 Active oxyCODONE HCl 5 MG Oral Tablet (Oxy IR)Indications:P araplegia (HCC) Take 1 Tablet by mouth every 4 hours as needed (pain). 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 Increased risk for Rodriguez Syndrome. Gastroesophageal reflux [...] mRNA, LNP-s, No Pre serve, 2-Dose Series (Flixel Photos) 06/26/2020,06/05/2020 PPD 10/26/2021 Seasonal Influenza Vac., MDV, [...] encounter Miscellaneous Notes * Telephone Encounter - Siomara Muñiz MD - 04/15/2024 4:45 PM ESTSigned Prescriptions: Disp Refills oxyCODONE HCl 5 MG Oral Tablet (Oxy IR) 150 Ta*0 Sig: Take 1 Tablet by mouth every 4 hours as needed (pain).Authorizing Provider: SIOMARA MUÑIZ * Telephone Encounter - Bisi Salazar [facility] - 04/15/2024 10:08 AM ESTPending Prescriptions: Disp Refills oxyCODONE HCl 5 MG Oral Tablet (Oxy IR) 150 Ta*0 Sig: Take 1 Tablet by mouth every 4 hours as needed (pain). * Telephone Encounter - Bisi Salazar [facility] - 04/15/2024 10:00 AM EST I have reviewed the patients controlled substance dispensing history in the Prescription Drug Monitoring Program in compliance with the [facility] regulations before prescribing a controlled substance. PDMP checked on 04/15/2024. Pending Prescriptions: Disp Refills oxyCODONE HCl 5 MG Oral Tablet (Oxy IR) 150 Ta*0 Sig: Take 1 Tablet by mouth every 4 hours as needed (pain). Last Visit: 03/10/2024 (in office), Visit date not found (telemedicine) Next Visit: 07/12/2024 Date medication was last filled: 03/03/24 Date medication is due for refill: 03/27/24 Pharmacy: [id number] [id number] Is this request for a controlled substance? Yes and Urine Drug Screen was completed Toxicology results: Results for orders placed or performed in visit on 07/24/23 TOXICOLOGY, URINE SCREEN W/ CONFIRMATION Result Value Amphetamines Screen, U Positive (A) Benzodiazepines Screen, U Negative Cannabinoids Screen, U Positive (A) Cocaine Metabolite Screen, U Negative Fentanyl Screen, U Negative Hydrocodone Screen, U Negative Methadone Metabolite Screen, U Negative Morphine/Codeine Screen, U Negative Oxycodone Screen, U Positive (A) Narrative Cutoff Concentrations: Drug Level Amphetamines 500 ng/mL Benzodiazepines 100 ng/mL Cannabinoids 50 ng/mL Cocaine Metabolite 150 ng/mL Fentanyl 1 ng/mL Hydrocodone / Hydromorphone 300 ng/mL Methadone Metabolite 100 ng/mL Morphine / Codeine 300 ng/mL Oxycodone / Oxymorphone 100 ng/mL Screening results are presumptive and can only be used for medical purposes. Positive screening results are reflexed to confirmatory testing. *Note: Due to a large number of results and/or encounters for the requested time period, some results have not been displayed. A complete set of results can be found in Results Review. Please approve if appropriate. Thanks, Bisi Salazar, PharmD Clinical Pharmacist [facility] [phone] 04/15/2024 10:00 AM documented in this encounter Plan of Treatment Upcoming Encounters Date Type Department Care Team (Late st Contact Info) Description 07/12/2024 1:40 PM EDT Office Visit [facility] [address] [phone] Siomara Muñiz MD [address] [place] [address] Scheduled Procedures Name Priority Associated Diagnoses Date/Ti [...] this encounter Medical Devices Implanted Type Area Senior Data Warehouse Architect Device Identifier Shelf Expiration Date Model / Serial / Lot Graft Healos [facility] 2761-60-005 - [id number] Implanted:Q[place] : 2 on 08[place]07[place] [facility]: Spine Lumbar JAROD & JAROD DEPUY [id number] / / Filter Lukasz Lopez [id number] - [id number] Implanted:Qty : 1 on 08/07/2007 at [place] [facility] Right: Groin [employer] 05/11/2010 [id number] / / [id number] Graft Healos [facility] 2761-60-010 - [id number] Implanted:Qty : 2 on 08/07/2007 at [place] [facility] N/A: Spine Lumbar JAROD [employer] JAROD DEPUY [id number] / / Screw 5x35 Poly Si [id number] - [id number] Implanted:Qty : 4 on 08/07/2007 at [place] [facility] N/A: Spine Thoracic JAROD [employer] JAROD DEPUY [id number] / / Screw 6x35 Poly Si [id number] - [id number] Implanted:Qty : 4 on 08/07/2007 at [place] [facility] N/A: Spine Thoracic JAROD & JAROD DEPUY [id number] / / Hook Blade Wide [id number] - [id number] Implanted:Qty : 2 on 08/07/2007 at [place] [facility] N/A: Spine Thoracic JAROD [employer] JAROD DEPUY [id number] / / Screw Set Sng Inner [id number] - [id number] Implanted:Qty : 14 on 08/07/2007 at [place] [facility] N/A: Spine Thoracic JAROD [employer] JAROD DEPUY [id number] / / Screw 6x40 Poly Si [id number] - [id number] Implanted:Qty : 3 on 08/07/2007 at [place] [facility] N/A: Spine Thoracic JAROD [employer] JAROD DEPUY [id number] / / Pb 480mm [id number] - [id number] Implanted:Qty : 1 on 08/07/2007 at [place] [facility] N/A: Spine Thoracic JAROD [employer] JAR[employer] DEPUY [id number] / / Screw 7x40 Poly Si [id number] - [id number] Implanted:Qty : 2 on 08/07/2007 at [place] [facility] N/A: Spine Thoracic JAROD [employer] JAROD DEPUY [id number] / / documented as of this encounter Visit Diagnoses Diagnosis Paraplegia (HCC) Paraplegia documented in this encounter Advance Directives * Full Code [...] and were consensually agreed upon. Care Teams Social Science Research Assistant Relationship Specialty Start Date End Date Siomara Muñiz MD [address] [address] PCP - General Family Medicine 03/27/18 documented as of this encounter
--- OUTSIDE RECORDS SUMMARY | 2024-04-18 00:12 | External Medical Summary | Summary of Care ---
Author Name Unknown Organization [facility] Address [address] [facility] [place] [place] [address] Phone [phone] Care Team Providers Care Crib Attendant Name Role Phone Rigoberto Rodriguez MD Primary Care Provider +1- [phone] Encounter Details Date Type Department Care Team (Late st Contact Info) Description 03/08/[address] [facility] [address] [facility] [place] [address] Rigoberto Rodriguez MD [address] [place], [place] [phone] Allergies Active Allergy Reactions Criticality Noted Date Comments Penicillins Hives 10/06/2020 Had hives on chest with trial of PCN September 2020 Tolerated ampicillin Tolerated amoxicillin Tolerated ceftriaxone Tolerated cefazolin documented as of this encounter (statuses as of 03/08/2024) Medications BISACODYL 10 MG [place] SUPPIndications: Unspecified site of spinal cord injury without evidence of spinal bone injury,Paraplegi a (HCC),Closed fracture of thoracic vertebra (HCC),Acute constipation 1 Suppository NJ EVERY OTHER DAY 0 0 8 Active [...] Oral Tablet Take by mouth. Activ e Ampicillin 500 MG Oral Capsule Take 1 Capsule by mouth in the morning and 1 Capsule at noon and 1 Capsule in the evening and 1 Capsule before bedtime. 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 Increased risk for Rodriguez Syndrome. Gastroesophageal reflux disease 08/18/2019 Spinal cord injury, thoracic region, subsequent encounter 03/24/2019 MEDICATION USE AGREEMENT 01/09/2017 Overview (01/09/2017): Signed 07/01/16 Neurogenic bladder 10/07/2014 Low back pain 11/17/2013 Paraplegia 08/06/2007 Dyslipidemia, goal LDL below 100 documented as of this encounter (statuses as of 03/08/2024) Resolved Problems Problem Noted Date Diagnosed Date [...] as of this encounter (statuses as of 03/08/2024) Immunizations Name Administration Dates Next Due COVID-19 [...] e alcohol) occassional PHQ-2 Answer Date Recorded PHQ-2 Score -1 10/31/2019 Hunger Vital Sign Answer Date Recorded Worried [...] Miscellaneous Notes * Telephone Encounter - Silvia Mobley, MED ASSIST - 03/08/2024 12:41 PM EST Received Fax for BFPROVIDERS: Dr. Rigoberto Rodriguez PT PLAN OF CARE/EVALUATION received from [facility] and FAXED documented in this encounter Plan of Treatment Upcoming Encounters Date Type Department Care Team ([facility] Contact Info) Description 03/10/2024 2:00 PM EST Office Visit [facility] [address] [place] [phone] Mitch Godoy PA-C [address] [facility] [address] [place] [address] 03/15/2024 2:00 PM EST Office Visit [facility] [address] [place] [address] Reggie Nevarez PA-C [address] [place] [address] Scheduled Procedures Name Priority Associated Diagnoses Date/Ti me COLONOSCOPY FLEXIBLE PROXIMA L DIAGNOSTIC Recall Special screening for malignant neoplasms, colon Health Maintenance Due Date Last Done Comments Lipid Panel 01/17/2016 01/16/2011, 01/16/2011 Cologuard 05/09/2019 Fecal Occult Blood Test 05/09/2019 Sigmoidoscopy 05/09/2019 Depression Screening 10/24/2020 10/25/2019 Influenza Vaccine (FLU shot) (#1) 2023 11/21/2020, 10/25/2019, 11/30/2007 DTap/Tdap Vaccines (3 - Td o r [...] this encounter Medical Devices Implanted Type Area Rehabilitation Services Director Device Identifier Shelf Expiration Date Model / Serial / Lot Graft Healos [facility] 2761-60-005 - [id number] Implanted:Qty : 2 [place] [facility] [place]: Spine Lumbar JAROD & JAROD DEPUY [id number] / / Filter Tulip Hunter Fem [id number] - [id number] Implanted:Qty : 1 on 08/07/2007 [place] [facility] Right: Groin [employer] 05/11/2010 [id number] / / [id number] Graft Healos [facility] 2761-60-010 - [id number] Implanted:Qty : 2 on 08/07/2007 at [facility] N/A: Spine Lumbar JAROD [employer] JAROD DEPUY [id number] / / Screw 5x35 Poly Si [id number] - [id number] Implanted:Qty : 4 on 08/07/2007 [place] [facility] [place]A: Spine Thoracic JAROD [employer] JAROD DEPUY [id number] / / Screw 6x35 Poly Si [id number] - [id number] Implanted:Qty : 4 on 08/07/2007 [place] [facility] [place]/A: Spine Thoracic JAROD [employer] JAROD DEPUY [id number] / / Hook Blade Wide [id number] - [id number] Implanted:Qty : 2 on 08/07/2007 at [facility] N/A: Spine Thoracic JAROD [employer] JAROD DEPUY [id number] / / Screw Set Sng Inner [id number] - [id number] Implanted:Qty : 14 on 08/07/2007 [place] [facility] [place]A: Spine Thoracic JAROD [employer] JAROD DEPUY [id number] / / Screw 6x40 Poly Si [id number] - [id number] Implanted:Qty : 3 on 08/07/2007 [place] [facility] [place]/A: Spine Thoracic JAROD [employer] JAROD DEPUY [id number] / / Pb 480mm [id number] - [id number] Implanted:Qty : 1 on 08/07/2007 at [facility] N/A: Spine Thoracic JAROD [employer] JAROD DEPUY [id number] / / Screw 7x40 Poly Si [id number] - [id number] Implanted:Qty : 2 on 08/07/2007 [place] [facility] [place]/A: Spine Thoracic JAROD & JAROD DEPUY [id number] / / documented as of this encounter [...] and were consensually agreed upon. Care Teams Crib Attendant Relationship Specialty Start Date End Date Rigoberto Rodriguez MD PCP - General Family Medicine 03/27/18 documented as of this encounter
--- OUTSIDE RECORDS SUMMARY | 2024-04-18 00:12 | External Medical Summary | Summary of Care ---
Author Name Unknown Organization [facility] Address [address] [place] [address] Phone [phone] Care Team Providers Care Water Resources Business Segment Leader Name Role Phone Rigoberto Rodriguez MD Primary Care Provider +1- [phone] Reason for Visit * Reason Onset Date Comments Appointment 04/07/2024 Encounter Details Date Type Department Care Team ([facility] st Contact Info) Description 04/07/2024 [address]phone [address] [phone] Silvia Rodriguez MD [address] [place] [phone] Appointment Allergies Active Allergy Reactions Criticality Noted Date Comments Penicillins Hives 10/06/2020 Had hives on chest with trial of PCN September 2020 Tolerated ampicillin Tolerated amoxicillin Tolerated ceftriaxone Tolerated cefazolin documented as of this encounter (statuses as of 04/07/2024) Medications BISACODYL 10 MG [place] SUPPIndications: Unspecified site of spinal cord injury without evidence of spinal bone injury,Paraplegi a (HCC),Closed fracture of thoracic vertebra (HCC),Acute constipation 1 Suppository NC EVERY OTHER DAY 0 0 8 Active [...] as of this encounter (statuses as of 04/07/2024) Active Problems Problem Noted Date Diagnosed Date 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 Increased risk for Rodriguez Syndrome. Gastroesophageal reflux disease 08/18/2019 Spinal cord injury, thoracic region, subsequent encounter 03/24/2019 MEDICATION USE AGREEMENT 01/09/2017 Overview (01/09/2017): Signed 07/01/16 Neurogenic bladder 10/07/2014 Low back pain 11/17/2013 Paraplegia 08/06/2007 Dyslipidemia, goal LDL below 100 documented as of this encounter (statuses as of 04/07/2024) Resolved Problems Problem Noted Date Diagnosed Date [...] as of this encounter (statuses as of 04/07/2024) Immunizations Name Administration Dates Next Due COVID-19 [...] encounter Miscellaneous Notes * Telephone Encounter - Lela Schroeder MED ASSIST - 04/07/2024 10:22 AM EST Called to schedule an appointment I left a message on patient's answering machine asking patient tocall us back. documented in this encounter Plan of Treatment Upcoming Encounters Date Type Department Care Team (Late st Contact Info) Description 07/12/2024 1:40 PM EDT Office Visit [facility] [address] [address] Rigoberto Rodriguez MD [address] [address] Scheduled Procedures Name Priority Associated Diagnoses Date/Ti [...] this encounter Medical Devices Implanted Type Area Industrial Retrofit Designer Device Identifier Shelf Expiration Date Model / Serial / Lot Graft Healos 5cc 2761-60-005 - [id number] Implanted:Qty : 2 on 08/07/2007 at [place] [facility] [place] N/A: Spine Lumbar JAROD & JAROD DEPUY [id number] / / Filter Tulip Hunter Lopez [id number] - [id number] Implanted:Qty : 1 on 08/07/2007 at [place] [facility] Right: Quynh [employer] 05/11/2010 [id number] / / [id number] Graft Healos 10 2761-60-010 - [id number] Implanted:Qty : 2 on 08/07/2007 at [place] [facility] N/A: Spine Lumbar JAROD & JAROD DEPUY [id number] / / Screw 5x35 Poly Si [id number] - [id number] Implanted:Qty : 4 on 08/07/2007 at [place] [facility] N/A: Spine Thoracic JAROD & JAROD DEPUY [id number] / / Screw 6x35 Poly Si [id number] - [id number] Implanted:Qty : 4 on 08/07/2007 at [place] [facility] [place] N/A: Spine Thoracic JAROD & JAROD DEPUY [id number] / / Hook Blade Wide [id number] - [id number] Implanted:Qty : 2 on 08/07/2007 at [place] [facility] [place] N/A: Spine Thoracic JAROD & JAROD DEPUY [id number] / / Screw Set Sng Inner [id number] - [id number] Implanted:Qty : 14 on 08/07/2007 at [place] [facility] [place] N/A: Spine Thoracic JAROD & JAROD DEPUY [id number] / / Screw 6x40 Poly Si [id number] - [id number] Implanted:Qty : 3 on 08/07/2007 at [place] [facility] [place] N/A: Spine Thoracic JAROD [employer] JAROD DEPUY [id number] / / Pb 480mm [id number] - [id number] Implanted:Qty : 1 on 08/07/2007 at [place] [facility] [place] N/A: Spine Thoracic JAROD & JAROD DEPUY [id number] / / Screw 7x40 Poly Si [id number] - [id number] Implanted:Qty : 2 on 08/07/2007 at [place] [facility] N/A: Spine Thoracic JAROD & JAROD DEPUY [id number] / / documented as of this encounter [...] and were consensually agreed upon. Care Teams Water Resources Business Segment Leader Relationship Specialty Start Date End Date Rigoberto Rodriguez MD [address] [address] PCP - General Family Medicine 03/27/18 documented as of this encounter
--- OUTSIDE RECORDS SUMMARY | 2024-04-18 00:12 | External Medical Summary | Summary of Care ---
Author Name Unknown Organization [facility] Address [address] [place] [address] Phone [phone] Care Team Providers Care Permit Agent Name Role Phone Rigoberto Rodriguez MD Primary Care Provider [phone]- [phone] Reason for Visit * Reason Onset Date Comments Nurse Documentation 03/22/2024 Encounter Details Date Type Department Care Team (Late st Contact Info) Description 03/22/2024 Telephone [facility] [address] [facility] [place] [address] Rigoberto Rodriguez MD [address] [place] [address] Nurse Documentation Allergies Active Allergy Reactions Criticality Noted Date Comments Penicillins Hives 10/06/2020 Had hives on chest with trial of PCN September 2020 Tolerated ampicillin Tolerated amoxicillin Tolerated ceftriaxone Tolerated cefazolin documented as of this encounter (statuses as of 03/23/2024) Medications BISACODYL 10 MG DE SUPPIndications: Unspecified site of spinal cord injury without evidence of spinal bone injury,Paraplegi a (HCC),Closed fracture of thoracic vertebra (HCC),Acute constipation 1 Suppository DE EVERY OTHER DAY 0 0 8 Active [...] as of this encounter (statuses as of 03/23/2024) Active Problems Problem Noted Date Diagnosed Date 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 Increased risk for Rodriguez Syndrome. Gastroesophageal reflux disease 08/18/2019 Spinal cord injury, thoracic region, subsequent encounter 03/24/2019 MEDICATION USE AGREEMENT 01/09/2017 Overview (01/09/2017): Signed 07/01/16 Neurogenic bladder 10/07/2014 Low back pain 11/17/2013 Paraplegia 08/06/2007 Dyslipidemia, goal LDL below 100 documented as of this encounter (statuses as of 03/23/2024) Resolved Problems Problem Noted Date Diagnosed Date [...] as of this encounter (statuses as of 03/23/2024) Immunizations Name Administration Dates Next Due COVID-19 [...] Encounter - Silvia Mobley MED ASSIST - 03/22/2024 3:49 PM EST Sent fax to [facility]: Dr. Rigoberto Rodriguez DME sent to from [facility] and FAXED documented in this encounter Plan of Treatment Upcoming Encounters Date Type Department Care Team (Late st Contact Info) Description 07/12/2024 1:40 PM EDT [place] [facility] [place] [address] [address] Rigoberto Rodriguez MD [address] [place] [address] Scheduled Procedures Name Priority Associated Diagnoses Date/Ti [...] this encounter Medical Devices Implanted Type Area Ice Hockey Coach Device Identifier Shelf Expiration Date Model / Serial / Lot Graft Healos 5cc 2761-60-005 - [id number] Implanted:Qty : 2 on 08/07/2007 at [place] [facility] [place]A: Spine Lumbar JAROD & JAROD DEPUY [id number] / / Filter Tulip Hunter Fem [id number] - [id number] Implanted:Qty : 1 on 08/07/2007 at [place] [facility] [place] Right: Groin [employer] 05/11/2010 [id number] / / [id number] Graft Healos 10 2761-60-010 - [id number] Implanted:Qty : 2 on 08/07/2007 at [place] [facility] [place] N/A: Spine Lumbar JAROD & JAROD DEPUY [id number] / / Screw 5x35 Poly Si [id number] - [id number] Implanted:Qty : 4 on 08/07/2007 at [place] [facility] [place] N/A: Spine Thoracic JAROD & JAROD DEPUY [id number] / / Screw 6x35 Poly Si [id number] - [id number] Implanted:Qty : 4 on 08/07/2007 at [place] [facility] [place] N/A: Spine Thoracic JAROD [employer] JAROD DEPUY [id number] / / Hook Blade Wide [id number] - [id number] Implanted:Qty : 2 on 08/07/2007 at [place] [facility] [place] N/A: Spine Thoracic JAROD [employer] JAROD DEPUY [id number] / / Screw Set Sng Inner [id number] - [id number] Implanted:Qty : 14 on 08/07/2007 at [place] [facility] [place] N/A: Spine Thoracic JAROD [employer] JAROD DEPUY [id number] / / Screw 6x40 Poly Si [id number] - [id number] Implanted:Qty : 3 on 08/07/2007 at [place] [facility] [place] N/A: Spine Thoracic JAROD [employer] JAROD DEPUY [id number] / / Pb 480mm [id number] - [id number] Implanted:Qty : 1 on 08/07/2007 at [place] [facility] [place] N/A: Spine Thoracic JAROD [employer] JAROD DEPUY [id number] / / Screw 7x40 Poly Si [id number] - [id number] Implanted:Qty : 2 on 08/07/2007 at [place] [facility] [place] N/A: Spine Thoracic JAROD [employer] JAROD DEPUY [id number] / / documented as of this encounter [...] and were consensually agreed upon. Care Teams Permit Agent Relationship Specialty Start Date End Date Rigoberto Rodriguez MD PCP - General Family Medicine 03/27/18 documented as of this encounter
--- OUTSIDE RECORDS SUMMARY | 2024-04-18 00:12 | External Medical Summary | Summary of Care ---
Author Name Unknown Organization [facility] Address [address] [place] [address] Phone [phone] Care Team Providers Care Experimental Mechanic Electrical Name Role Phone Siomara Muñiz MD Primary Care Provider [phone]- [phone] Reason for Visit * Reason Onset Date Comments Medication Refill 04/14/2024 Encounter Details Date Type Department Care Team (Late st Contact Info) Description 04/14/[address] [facility] [address] [facility] [place] [address] Siomara Muñiz MD [address] [facility] [place] [id number] Erectile dysfunction due to diseases classified elsewhere Allergies Active Allergy Reactions Criticality Noted Date Comments Penicillins Hives 10/06/2020 Had hives on chest with trial of PCN September 2020 Tolerated ampicillin Tolerated amoxicillin Tolerated ceftriaxone Tolerated cefazolin documented as of this encounter (statuses as of 04/16/2024) Medications BISACODYL 10 MG [place] SUPPIndications: Unspecified site of spinal cord injury without evidence of spinal bone injury,Paraplegi a (HCC),Closed fracture of thoracic vertebra (HCC),Acute constipation 1 Suppository AZ EVERY OTHER DAY 0 0 08/17/19 08 [...] rosa cord injury, thoracic region, subsequent encounter ([facility]),Chronic retention of urine TAKE 1 TABLET BY MOUTH IN THE MORNING AND BEFORE BEDTIME 180 Tablet 3 02/25/19 25 Active Sildenafil Citrate 20 MG Oral Tablet (Revatio)Indicat ions:Erectile dysfunction due to diseases classified elsewhere TAKE 1-5 TABLETS BY MOUTH AT LEAST 1 HOUR PRIOR TO INTERCOURSE NEEDED 90 Tablet 04/16/19 25 Active oxyCODONE HCl 5 MG Oral Tablet (Oxy IR)Indications:P araplegia ([facility]) Take 1 Tablet by mouth every 4 [...] Overview (05/12/2020): pathogenic MSH6 gene variant (c.3261delC, p.[id number]) detected via [employer]. Increased risk for Rodriguez [...] mRNA, LNP-s, No Pre serve, 2-Dose Series (Chatous) 06/26/2020,06/05/2020 PPD 10/26/2021 Seasonal Influenza Vac., MDV, [...] Encounter - Siomara Muñiz MD - 04/15/2024 4:44 PM ESTSigned Prescriptions: Disp Refills Sildenafil Citrate 20 MG Oral Tablet ([place]ka*90 Tab*0 Sig: TAKE 1-5 TABLETS BY MOUTH AT LEAST 1 HOUR PRIOR TO INTERCOURSE NEEDEDAuthorizing Provider: SIOMARA MUÑIZ * Telephone Encounter - Michael Rodriguez, barrel roller - 04/15/2024 10:30 AM ESTPending Prescriptions: Disp Refills Sildenafil Citrate 20 MG Oral Tablet ([place]aleska*90 Tab*0 Sig: TAKE 1-5 TABLETS BY MOUTH AT LEAST 1 HOUR PRIOR TO INTERCOURSE NEEDED * Telephone Encounter - Michael Rodriguez, barrel roller - 04/15/2024 10:30 AM EST Received message from [facility] regarding patient needing labs. Call Placed, Left message on voicemail advising of required labs Thank you, Michael Rodriguez Survey Crew Chief [employer] 04/15/2024, 10:30 AM * Telephone Encounter - Bisi Salazar [facility] - 04/15/2024 10:10 AM ESTPending Prescriptions: Disp Refills Sildenafil Citrate 20 MG Oral Tablet ([place]aleska*90 Tab*0 Sig: TAKE 1-5 TABLETS BY MOUTH AT LEAST 1 HOUR PRIOR TO INTERCOURSE NEEDED * Telephone Encounter - Bisi Salazar RPh - 04/15/2024 10:09 AM EST Unable to authorize medication refills for pended medication(s) at this time. Per refill protocol patient should have CMP on file within past year. Reviewed : AMP report Care Gaps/Health Maintenance medications list for any routine labs typically ordered for this patient. Lab orders placed. Please contact patient to advise of labs ordered for blood draw. Recommend patient to fast if able for labs. Patient may still have water and regular medications. Advise to obtain labs before his scheduled office visit 07/12/2024. After contacting patient, please forward request to Siomara Muñiz MD. Thanks, Bisi Salazar, PharmD Clinical Pharmacist [facility] [phone] 04/15/2024 10:09 AM documented in this encounter Plan of Treatment Upcoming Encounters Date Type Department Care Team (Late st Contact Info) Description 07/12/2024 1:40 PM EDT Office Visit [facility] [address] [address] Siomara Muñiz MD [address] [address] Scheduled Procedures Name Priority Associated Diagnoses Date/Ti [...] this encounter Medical Devices Implanted Type Area Blow Mold Machine Operator Device Identifier Shelf Expiration Date Model / Serial / Lot Graft Healos psychiatric 2761-60-005 - [id number] Implanted:Qty : 2 on 08/07/2007 [place] [facility] [place]: Spine Lumbar JAROD [employer] JAROD DEPUY [id number] / / Filter Lukasz Lopez [id number] - [id number] Implanted:Qty : 1 on 08/07/2007 at [place] [facility] [place] Right: Groin [employer] 05/11/2010 [id number] / / [id number] Graft Healos [facility] 2761-60-010 - [id number] Implanted:Qty : 2 on 08/07/2007 at [place] [facility] [place]/A: Spine Lumbar JAROD & JAROD DEPUY [id number] / / Screw 5x35 Poly Si [id number] - [id number] Implanted:Qty : 4 on 08/07/2007 at [place] [facility] [place]/A: Spine Thoracic JAROD [employer] JAROD DEPUY [id number] / / Screw 6x35 Poly Si [id number] - [id number] Implanted:Qty : 4 on 08/07/2007 at [place] [facility] [place]/A: Spine Thoracic JAROD [employer] JAROD DEPUY [id number] / / Hook Blade Wide [id number] - [id number] Implanted:Qty : 2 on 08/07/2007 at [place] [facility] [place]/A: Spine Thoracic JAROD [employer] JAROD DEPUY [id number] / / Screw Set Sng Inner [id number] - [id number] Implanted:Qty : 14 on 08/07/2007 at [place] [facility] [place]/A: Spine Thoracic JAROD [employer] JAROD DEPUY [id number] / / Screw 6x40 Poly Si [id number] - [id number] Implanted:Qty : 3 on 08/07/2007 at [place] [facility] [place]/A: Spine Thoracic JAROD [employer] JAROD DEPUY [id number] / / Pb 480mm [id number] - [id number] Implanted:Qty : 1 on 08/07/2007 at [place] [facility] [place]/A: Spine Thoracic JAROD [employer] JAROD DEPUY [id number] / / Screw 7x40 Poly Si [id number] - [id number] Implanted:Qty : 2 on 08/07/2007 at [place] [facility] [place] N/A: Spine Thoracic JAROD [employer] JAROD DEPUY [id number] / / documented as of this encounter Visit Diagnoses Diagnosis Erectile dysfunction due to diseases classified elsewhere documented in this encounter Advance Directives * [...] and were consensually agreed upon. Care Teams Experimental Mechanic Electrical Relationship Specialty Start Date End Date Siomara Muñiz MD [address] [address] PCP - General Family Medicine 03/27/18 documented as of this encounter
--- OUTSIDE RECORDS SUMMARY | 2024-04-18 00:12 | External Medical Summary | Summary of Care ---
Author Name Unknown Organization [facility] Address [address] [place] [address] Phone [phone] Care Team Providers Care Car Scrubber Name Role Phone Rigoberto Rodriguez MD Primary Care Provider +1- [phone] Reason for Visit * Reason Comments eRx-Medication Refill Encounter Details Date Type Department Care Team (Late st Contact Info) Description 03/04/2024 Refill [facility] [address] [place] [address] Rigoberto Rodriguez MD [address] [place] [address] Erectile dysfunction due to diseases classified elsewhere Allergies Active Allergy Reactions Criticality Noted Date Comments Penicillins Hives 10/06/2020 Had hives on chest with trial of PCN September 2020 Tolerated ampicillin Tolerated amoxicillin Tolerated ceftriaxone Tolerated cefazolin documented as of this encounter (statuses as of 03/05/2024) Medications BISACODYL 10 MG [place] SUPPIndications: Unspecified site of spinal cord injury without evidence of spinal bone injury,Paraplegi a (HCC),Closed fracture of thoracic vertebra (HCC),Acute constipation 1 Suppository VT EVERY OTHER DAY 0 0 8 Active SELF-CATH STRAIGHT TIPPED CATH MISCIndications: Closed fracture of T7-T12 level with complete lesion of cord 14french 180 Device 11 0 Active Ketoconazole 2 % creamIndications :Tinea corporis Apply topically to affected area twice daily until resolved 15 g 1 01/19/201 8 Active Additional Information Patient not taking.Reported [...] A DAY 450 Capsule 3 4 Active Sildenafil Citrate 20 MG Oral Tablet (Revatio)Indicat ions:Erectile dysfunction due to diseases classified elsewhere TAKE 1-5 TABLETS BY MOUTH AT LEAST 1 HOUR PRIOR TO INTERCOURSE NEEDED 90 Tablet 4 Active Famotidine 20 MG Oral Tablet [...] as needed (pain). 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 Increased risk for Rodriguez Syndrome. Gastroesophageal reflux disease 08/18/2019 Spinal cord injury, thoracic region, subsequent encounter 03/24/2019 MEDICATION USE AGREEMENT 01/09/2017 Overview (01/09/2017): Signed 07/01/16 Neurogenic bladder 10/07/2014 Low back pain 11/17/2013 Paraplegia 08/06/2007 Dyslipidemia, goal LDL below 100 documented as of this encounter (statuses as of 03/05/2024) Resolved Problems Problem Noted Date Diagnosed Date [...] as of this encounter (statuses as of 03/05/2024) Immunizations Name Administration Dates Next Due COVID-19 [...] encounter Miscellaneous Notes * Telephone Encounter - Prachi Powell, [facility] - 03/05/2024 6:26 AM ESTRefused Prescriptions: Disp Refills Sildenafil Citrate 20 MG Oral Tablet ([place]ka*90 Tab*0 Sig: TAKE 1- 5 TABLETS BY MOUTH AT LEAST 1 HOUR PRIOR TO INTERCOURSE NEEDEDRefused By: PRACHI POWELL for Refusal: Duplicate Request documented in this encounter Plan of Treatment Upcoming Encounters Date Type Department Care Team ([facility] st Contact Info) Description 03/10/2024 2:00 PM EST Office Visit [facility] [address] [facility] [place] [phone] Mitch Godoy PA-C [address] [facility] [address] [place] [address] 03/15/2024 2:00 PM EST Office Visit D[facility] [address] [place] [phone] Reggie Nevarez PA-C [address] [place], [place] [phone] Scheduled Procedures Name Priority Associated Diagnoses Date/Ti [...] this encounter Medical Devices Implanted Type Area Motorboat Mechanic Helper Device Identifier Shelf Expiration Date Model / Serial / Lot Graft Healos [facility] 2761-60-005 - [id number] Implanted:Qty : 2 on 08/07/2007 [place] [facility] [place]: Spine Lumbar JAROD & JAROD DEPUY [id number] / / Filter Tulip Hunter Fem [id number] - [id number] Implanted:Qty : 1 on 08/07/2007 at [place] [facility] [place] Right: Groin [employer] 05/11/2010 [id number] / / [id number] Graft Healos [facility] 2761-60-010 - [id number] Implanted:Qty : 2 on 08/07/2007 at [place] [facility] [place]/A: Spine Lumbar JAROD [employer] JAROD DEPUY [id number] / / Screw 5x35 Poly Si [id number] - [id number] Implanted:Qty : 4 on 08/07/2007 at [facility] N/A: Spine Thoracic JAROD [employer] JAROD DEPUY [id number] / / Screw 6x35 Poly Si [id number] - [id number] Implanted:Qty : 4 on 08/07/2007 [place] [facility] [place]/A: Spine Thoracic JAROD [employer] JAROD DEPUY [id number] / / Hook Blade Wide [id number] - [id number] Implanted:Qty : 2 on 08/07/2007 at [place] [facility] [place]/A: Spine Thoracic JAROD [employer] JAROD DEPUY [id number] / / Screw Set Sng Inner [id number] - [id number] Implanted:Qty : 14 on 08/07/2007 at [facility] N/A: Spine Thoracic JAROD [employer] JAROD DEPUY [id number] / / Screw 6x40 Poly Si [id number] - [id number] Implanted:Qty : 3 on 08/07/2007 at [place] [facility] [place]/A: Spine Thoracic JAROD [employer] JAROD DEPUY [id number] / / Pb 480mm [id number] - [id number] Implanted:Qty : 1 on 08/07/2007 at [place] [facility] [place]/A: Spine Thoracic JAROD [employer] JAROD DEPUY [id number] / / Screw 7x40 Poly Si [id number] - [id number] Implanted:Qty : 2 on 08/07/2007 at [place] [facility] [place]/A: Spine Thoracic JAROD [employer] JAROD DEPUY [id number] / / documented as of this encounter [...] and were consensually agreed upon. Care Teams Car Scrubber Relationship Specialty Start Date End Date Rigoberto Rodriguez MD PCP - General Family Medicine 03/27/18 documented as of this encounter
--- OUTSIDE RECORDS SUMMARY | 2024-04-18 00:12 | External Medical Summary | Summary of Care ---
Author Name Unknown Organization [facility] Address [address] [place] [address] Phone [phone] Care Team Providers Care Motion Picture Cameraman Name Role Phone Siomara Muñiz MD Primary Care Provider +1- [phone] Reason for Visit * Reason Onset Date Comments Medication Refill 03/04/2024 Encounter Details Date Type Department Care Team (Late st Contact Info) Description 03/04/[address] [facility] [address] [facility] [place] [address] Siomara Muñiz MD [address] [facility] [place] [address] Erectile dysfunction due to diseases classified elsewhere Allergies Active Allergy Reactions Criticality Noted Date Comments Penicillins Hives 10/06/2020 Had hives on chest with trial of PCN September 2020 Tolerated ampicillin Tolerated amoxicillin Tolerated ceftriaxone Tolerated cefazolin documented as of this encounter (statuses as of 03/05/2024) Medications BISACODYL 10 MG VA SUPPIndications: Unspecified site of spinal cord injury without evidence of spinal bone injury,Paraplegi a (HCC),Closed fracture of thoracic vertebra (HCC),Acute constipation 1 Suppository VA EVERY OTHER DAY 0 0 08/17/19 08 [...] and 1 Capsule before bedtime. 28 Capsule 12/25/19 24 Active Debrox 6.5 % Otic Solution (Carbamide [...] as needed (pain). 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 Increased risk for Rodriguez Syndrome. Gastroesophageal reflux [...] mRNA, LNP-s, No Pre serve, 2-Dose Series ([employer]) 06/26/2020,06/05/2020 PPD 10/26/2021 Seasonal Influenza Vac., MDV, [...] Telephone Encounter - Siomara Muñiz MD - 03/05/2024 5:23 PM ESTSigned Prescriptions: Disp Refills Sildenafil Citrate 20 MG Oral Tablet ([place]ka*90 Tab*0 Sig: TAKE 1-5 TABLETS BY MOUTH AT LEAST 1 HOUR PRIOR TO INTERCOURSE NEEDEDAuthorizing Provider: SIOMARA MUÑIZ * Telephone Encounter - Michael Rodriguez, facility practice specialist - 03/05/2024 9:40 AM ESTPending Prescriptions: Disp Refills Sildenafil Citrate 20 MG Oral Tablet ([place]ka*90 Tab*0 Sig: TAKE 1-5 TABLETS BY MOUTH AT LEAST 1 HOUR PRIOR TO INTERCOURSE NEEDED * Telephone Encounter - Michael Rodriguez, facility practice specialist - 03/05/2024 9:38 AM EST Received message from [facility] regarding patient needing labs. Call Placed, Pt was agreeable to have labs drawn but would prefer to walk-in at their convenience. Thank you, Michael Rodriguez Tire Repairman [facility] 03/05/2024, 9:38 AM * Telephone Encounter - Prachi Powell [facility] - 03/05/2024 6:27 AM ESTPending Prescriptions: Disp Refills Sildenafil Citrate 20 MG Oral Tablet ([place]*90 Tab*0 Sig: TAKE 1-5 TABLETS BY MOUTH AT LEAST 1 HOUR PRIOR TO INTERCOURSE NEEDED * Telephone Encounter - Prachi Powell [facility] - 03/05/2024 6:26 AM EST Unable to authorize medication refills for pended medication(s) at this time. Per refill protocol patient should have routine on file within past year. Reviewed AMP report, Care Gaps/Health Maintenance, medications list, and for any routine labs typically ordered for this patient. Lab orders placed. Please contact patient to advise of labs ordered for blood draw. Recommend patient to fast if able for labs. Patient may still have water and regular medications. Advise to obtain labs before requesting the next refill. After contacting patient, please forward request to Siomara Muñiz MD. Thanks, Prachi Powell Clinical Pharmacist [facility] ([facility]) [phone] 03/05/2024, 6:26 AM documented in this encounter Plan of Treatment Upcoming Encounters Date Type Department Care Team ([facility] st Contact Info) Description 03/10/2024 2:00 PM EST Office Visit [facility] [address] [address] Mitch Godoy PA-C [address] [address] 03/15/2024 2:00 PM EST Office Visit [address] [address] Reggie Nevarez PA-C [address] [place] [address] Scheduled Procedures Name Priority Associated Diagnoses Date/Ti [...] this encounter Medical Devices Implanted Type Area Moving Picture Operator Device Identifier Shelf Expiration Date Model / Serial / Lot Graft Healos [facility] 2761-60-005 - [id number] Implanted:Qty : 2 on 08/07/2007 at [place] [facility] [place]A: Spine Lumbar JAROD & JAROD DEPUY [id number] / / Filter Tulip Hunter Fem [id number] - [id number] Implanted:Qty : 1 on 08/07/2007 at [place] [facility] [place] Right: Groin [employer] 05/11/2010 [id number] / / [id number] Graft Healos 10 2761-60-010 - [id number] Implanted:Qty : 2 on 08/07/2007 at [place] [facility] [place]/A: Spine Lumbar JAROD & JAROD DEPUY [id number] / / Screw 5x35 Poly Si [id number] - [id number] Implanted:Qty : 4 on 08/07/2007 at [place] [facility] [place]/A: Spine Thoracic JAROD & JAROD DEPUY [id number] / / Screw 6x35 Poly Si [id number] - [id number] Implanted:Qty : 4 on 08/07/2007 at [place] [facility] [place]/A: Spine Thoracic JAROD & JAROD DEPUY [id number] / / Hook Blade Wide [id number] - [id number] Implanted:Qty : 2 on 08/07/2007 at [place] [facility] [place]/A: Spine Thoracic JAROD & JAROD DEPUY [id number] / / Screw Set Sng Inner [id number] - [id number] Implanted:Qty : 14 on 08/07/2007 at [place] [facility] [place]/A: Spine Thoracic JAROD & JAROD DEPUY [id number] / / Screw 6x40 Poly Si [id number] - [id number] Implanted:Qty : 3 on 08/07/2007 at [place] [facility] [place] N/A: Spine Thoracic JAROD & JAROD DEPUY [id number] / / Pb 480mm [id number] - [id number] Implanted:Qty : 1 on 08/07/2007 at [place] [facility] [place]/A: Spine Thoracic JAROD [employer] JAROD DEPUY [id number] / / Screw 7x40 Poly Si [id number] - [id number] Implanted:Qty : 2 on 08/07/2007 at [place] [facility] [place] N/A: Spine Thoracic JAROD [employer] JAROD DEPUY [id number] / / documented as of this encounter [...] and were consensually agreed upon. Care Teams Motion Picture Cameraman Relationship Specialty Start Date End Date Siomara Muñiz MD PCP - General Family Medicine 03/27/18 documented as of this encounter
--- OUTSIDE RECORDS SUMMARY | 2024-04-18 00:12 | External Medical Summary | Summary of Care ---
Author Name Unknown Organization [facility] Address [address] [facility] [place] [place] [address] Phone [phone] Care Team Providers Care Mexican Food Maker Name Role Phone Rigoberto Rodriguez MD Primary Care Provider +1- [phone] Encounter Details Date Type Department Care Team (Late st Contact Info) Description 03/08/2024 Telephone [facility] [address] [facility] [facility] [place] [address] Rigoberto Rodriguez MD [address] [place], [place] [id number] Allergies Active Allergy Reactions Criticality Noted Date Comments Penicillins Hives 10/06/2020 Had hives on chest with trial of PCN September 2020 Tolerated ampicillin Tolerated amoxicillin Tolerated ceftriaxone Tolerated cefazolin documented as of this encounter (statuses as of 03/08/2024) Medications BISACODYL 10 MG MT SUPPIndications: Unspecified site of spinal cord injury without evidence of spinal bone injury,Paraplegi a (HCC),Closed fracture of thoracic vertebra (HCC),Acute constipation 1 Suppository MT EVERY OTHER DAY 0 0 8 Active [...] Overview (05/12/2020): pathogenic MSH6 gene variant (c.3261delC, p.[id number]) detected via Peerlyst. Increased risk for Rodriguez Syndrome. Gastroesophageal reflux [...] Rodriguez PT PLAN OF CARE/EVALUATION received from [facility] and FAXED documented in this encounter Plan of Treatment Upcoming Encounters Date Type Department Care Team ([facility] Contact Info) Description 03/10/2024 2:00 PM EST Office Visit [facility] [address] [place] [phone] Mitch Godoy PA-C [address] [facility] [place] [place] [address] 03/15/2024 2:00 PM EST Office Visit Dermatology [facility] [address] [place] [address] Reggie Nevarez PA-C [address] [place] [address] Scheduled Procedures Name Priority Associated [...] this encounter Medical Devices Implanted Type Area Access Services Assistant Device Identifier Shelf Expiration Date Model / Serial / Lot Graft Healos [facility] 2761-60-005 - [id number] Implanted:Qty : 2 on 08/07/2007 at [place] [facility] [place]/A: Spine Lumbar JAROD & JAROD DEPUY [id number] / / Filter Tulip Hunter Fem [id number] - [id number] Implanted:Qty : 1 on 08/07/2007 at [place] [facility] [place] Right: Groin [employer] 05/11/2010 [id number] / / [id number] Graft Healos [facility] 2761-60-010 - [id number] Implanted:Qty : 2 on 08/07/2007 at [facility] N/A: Spine Lumbar JAROD & JAROD DEPUY [id number] / / Screw 5x35 Poly Si [id number] - [id number] Implanted:Qty : 4 on 08/07/2007 at [place] [facility] [place] N/A: Spine Thoracic JAROD & JAROD DEPUY [id number] / / Screw 6x35 Poly Si [id number] - [id number] Implanted:Qty : 4 on 08/07/2007 at [place] [facility] [place] N/A: Spine Thoracic JAROD & JAROD DEPUY [id number] / / Hook Blade Wide [id number] - [id number] Implanted:Qty : 2 on 08/07/2007 at [facility] N/A: Spine Thoracic JAROD [employer] JAROD DEPUY [id number] / / Screw Set Sng Inner [id number] - [id number] Implanted:Qty : 14 on 08/07/2007 at [place] [facility] [place] N/A: Spine Thoracic JAROD [employer] JAROD DEPUY [id number] / / Screw 6x40 Poly Si [id number] - [id number] Implanted:Qty : 3 on 08/07/2007 at [place] [facility] [place] N/A: Spine Thoracic JAROD [employer] JAROD DEPUY [id number] / / Pb 480mm [id number] - [id number] Implanted:Qty : 1 on 08/07/2007 at [facility] N/A: Spine Thoracic JAROD [employer] JAROD DEPUY [id number] / / Screw 7x40 Poly Si [id number] - [id number] Implanted:Qty : 2 on 08/07/2007 at [place] [facility] [place] N/A: Spine Thoracic JAROD [employer] JAROD DEPUY [id number] / / documented as of this encounter [...] and were consensually agreed upon. Care Teams Mexican Food Maker Relationship Specialty Start Date End Date Rigoberto Rodriguez MD PCP - General Family Medicine 03/27/18 documented as of this encounter
--- OUTSIDE RECORDS SUMMARY | 2024-04-18 00:13 | External Medical Summary | Summary of Care ---
Author Name Unknown Organization [facility] Address [address] [place] [address] Phone [phone] Care Team Providers Care Station Usher Name Role Phone Siomara Muñiz MD Primary Care Provider +1- [phone] Reason for Visit * Reason Comments eRx-Medication Refill Encounter Details Date Type Department Care Team (Late st Contact Info) Description 01/28/2024 Refill [facility] [address] [place] [address] Siomara Muñiz MD [address] [place] [address] Herpes simplex virus infection Allergies Active Allergy Reactions Criticality Noted Date Comments Penicillins Hives 10/06/2020 Had hives on chest with trial of PCN September 2020 Tolerated ampicillin Tolerated amoxicillin Tolerated ceftriaxone Tolerated cefazolin documented as of this encounter (statuses as of 01/29/2024) Medications BISACODYL 10 MG NV SUPPIndications :Unspecified site of spinal cord injury without evidence of spinal bone injury,Parapleg ia (HCC),Closed fracture of thoracic vertebra (HCC),Acute constipation 1 Suppository NV EVERY OTHER DAY 0 0 08/17/19 08 Active SELF-CATH STRAIGHT TIPPED CATH MISCIndications :Closed fracture of T7-T12 level with complete lesion of cord 14french 180 Device 11 10/27/19 10 Active Ketoconazole 2 % creamIndication s:Tinea corporis Apply topically to affected area twice daily until resolved 15 g 1 02/28/19 18 Active Additional Information Patient not taking.Reported on 03/13/2023 oxyBUTYnin Chloride ER 10 MG Oral Tablet Extended Release 24 HourIndications :Spinal cord injury, thoracic region, subsequent encounter (HCC),Chronic retention of urine Take 1 Tablet by mouth in the morning and 1 Tablet before bedtime. 180 Tablet 3 02/21/19 24 Active One-A-Day Mens (Minerals) Oral Tablet Take by [...] 30 minutes.. 15 mL 12/25/19 24 Active oxyCODONE HCl 5 MG Oral Tablet (Oxy IR)Indications: Paraplegia ([facility]) Take 1 Tablet by mouth every 4 hours as needed (pain). 150 Tablet 01/01/20 24 Active Gabapentin 300 MG Oral Capsule (Neurontin) TAKE 2 CAPSULES BY MOUTH 3 TIMES A DAY 450 Capsule 3 01/06/20 24 Active Sildenafil Citrate 20 MG Oral Tablet (Revatio)Indica tions:Erectile dysfunction due to diseases classified elsewhere TAKE 1-5 TABLETS BY MOUTH AT LEAST 1 HOUR PRIOR TO INTERCOURSE NEEDED 90 Tablet 01/15/20 24 Active Famotidine 20 MG Oral Tablet (Pepcid) TAKE 1 TABLET BY MOUTH TWICE A DAY 60 Tablet 5 01/29/20 24 Active Acyclovir 400 MG Oral Tablet (Zovirax)Indica tions:Herpes simplex virus infection TAKE 1 TABLET BY MOUTH TWICE A DAY 60 Tablet 5 01/29/20 24 Active Famotidine 20 MG Oral Tablet (Pepcid) TAKE 1 TABLET BY MOUTH TWICE A DAY 60 Tablet 2 10/30/19 24 024 Discontinued Acyclovir 400 MG Oral Tablet (Zovirax)Indica tions:Herpes simplex virus infection TAKE 1 TABLET BY MOUTH TWICE A DAY 60 Tablet 2 10/30/19 24 024 Discontinued documented as of this encounter (statuses as of 01/29/2024) Active Problems Problem Noted Date Diagnosed Date 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 Increased risk for Rodriguez Syndrome. Gastroesophageal reflux disease 08/18/2019 Spinal cord injury, thoracic region, subsequent encounter 03/24/2019 MEDICATION USE AGREEMENT 01/09/2017 Overview (01/09/2017): Signed 07/01/16 Neurogenic bladder 10/07/2014 Low back pain 11/17/2013 Paraplegia 08/06/2007 Dyslipidemia, goal LDL below 100 documented as of this encounter (statuses as of 01/29/2024) Resolved Problems Problem Noted Date Diagnosed Date [...] as of this encounter (statuses as of 01/29/2024) Immunizations Name Administration Dates Next Due COVID-19 mRNA, LNP-s, No Pre serve, 2-Dose Series ([employer]) 06/26/2020,06/05/2020 PPD 10/26/2021 Seasonal Influenza Vac., MDV, [...] Telephone Encounter - Siomara Muñiz MD - 01/29/2024 4:22 PM ESTSigned Prescriptions: Disp Refills Famotidine 20 MG Oral Tablet (Pepcid) 60 Tab*5 Sig: TAKE 1 TABLET BY MOUTH TWICE A DAYAuthorizing Provider: SIOMARA MUÑIZ Acyclovir 400 MG Oral Tablet (Zovirax) 60 Tab*5 Sig: TAKE 1 TABLET BY MOUTH TWICE A DAYAuthorizing Provider: SIOMARA MUÑIZ--------- * Telephone Encounter - Michael Rodriguez, greige goods inspector - 01/29/2024 9:36 AM ESTPending Prescriptions: Disp Refills Famotidine 20 MG Oral Tablet (Pepcid) 60 Tab*0 Sig: TAKE 1 TABLET BY MOUTH TWICE A DAY Acyclovir 400 MG Oral Tablet (Zovirax) 60 Tab*0 Sig: TAKE 1 TABLET BY MOUTH TWICE A DAY * Telephone Encounter - Michael Rodriguez, greige goods inspector - 01/29/2024 9:35 AM EST Received message from [facility] regarding patient needing an appointment and labs. Call Placed, Left message on voicemail advising of required labs and to call back for an appointment. Thank you, Michael Rodriguez Building Maintenance Worker [facility] 01/29/2024, 9:35 AM * Telephone Encounter - Erum Mensah RP - 01/29/2024 5:44 AM ESTPending Prescriptions: Disp Refills Famotidine 20 MG Oral Tablet (Pepcid) 60 Tab*0 Sig: TAKE 1 TABLET BY MOUTH TWICE A DAY Acyclovir 400 MG Oral Tablet (Zovirax) 60 Tab*0 Sig: TAKE 1 TABLET BY MOUTH TWICE A DAY * Telephone Encounter - Erum Mensah RP - 01/29/2024 5:42 AM EST Unable to authorize medication refills for pended medication(s) at this time. Part of the protocol criteria used for refill authorization was not satisfied. Per refill protocol patient should have routine exam and labs on file within past year. Reviewed AMP report, Care Gaps/Health Maintenance, medications list, and for any routine labs typically orderedfor this patient. Lab orders placed. Please contact patient to schedule office visit with PRIMARY CARE and advise of labs ordered for blood draw.. Recommend patient to fast if able for labs. Patient may still have water and regular medications. Advise to obtain labs before his scheduled office visit Visit date not found. Last Visit: 04/25/22 (in office), Visit date not found (telemedicine) Next Visit: Visit date not found After contacting patient, please forward request to Siomara Muñiz MD. Thank You, Erum Mensah [facility] Clinical Pharmacist [facility] Pharmacy Services ([facility]) [phone] 01/29/2024, 5:43 AM documented in this encounter Plan of Treatment Upcoming Encounters Date Type Department Care Team ([facility] st Contact Info) Description 03/15/2024 2:00 PM EST Office Visit Dermatology [facility] [place] [address] [facility] [place] [address] Reggie Nevarez PA-C [address] [place] [address] [address] [place] [address] Scheduled Procedures Name Priority Associated Diagnoses Date/Ti [...] 5 Years) and At-Risk Patients (6 to 64 Years) Aged Out No longer eligible based on patient's age to complete this topic documented as of this encounter Medical Devices Implanted Type Area Pyrometer Temperature Regulator Device Identifier Shelf Expiration Date Model / Serial / Lot Graft Healos c 2761-60-005 - [id number] Implanted:Qty : 2 on 08/07/2007 [place] [facility] [place]: Spine Lumbar JAROD [employer] JAROD DEPUY [id number] / / Filter Tulcecilia Harrison Fem [id number] - [id number] Implanted:Qty : 1 on 08/07/2007 at [place] [facility] [place] Right: Groin [employer] 05/11/2010 [id number] / / [id number] Graft Healos [facility] 2761-60-010 - [id number] Implanted:Qty : 2 on 08/07/2007 at [place] [facility] [place] N/A: Spine Lumbar JAROD [employer] JAROD DEPUY [id number] / / Screw 5x35 Poly Si [id number] - [id number] Implanted:Qty : 4 on 08/07/2007 at [place] [facility] [place] N/A: Spine Thoracic JAROD [employer] JAROD DEPUY [id number] / / Screw 6x35 Poly Si [id number] - [id number] Implanted:Qty : 4 on 08/07/2007 at [place] [facility] [place] N/A: Spine Thoracic JAROD [employer] JAROD DEPUY [id number] / / Hook Blade Wide [id number] - [id number] Implanted:Qty : 2 on 08/07/2007 at [place] [facility] [place] N/A: Spine Thoracic JAROD [employer] JAROD DEPUY [id number] / / Screw Set Sng Inner [id number] - [id number] Implanted:Qty : 14 on 08/07/2007 at [place] [facility] [place] N/A: Spine Thoracic JAROD [employer] JAROD DEPUY [id number] / / Screw 6x40 Poly Si [id number] - [id number] Implanted:Qty : 3 on 08/07/2007 at [place] [facility] [place] N/A: Spine Thoracic JAROD [employer] JAROD DEPUY [id number] / / Pb 480mm [id number] - [id number] Implanted:Qty : 1 on 08/07/2007 at [place] [facility] [place] N/A: Spine Thoracic JAROD [employer] JAROD DEPUY [id number] / / Screw 7x40 Poly Si [id number] - [id number] Implanted:Qty : 2 on 08/07/2007 at [place] [facility] [place] N/A: Spine Thoracic JAROD [employer] JAROD DEPUY [id number] / / documented as of this encounter Visit Diagnoses Diagnosis Herpes simplex virus infection Herpes simplex without mention of complication documented in this encounter Advance Directives * [...] and were consensually agreed upon. Care Teams Station Usher Relationship Specialty Start Date End Date Siomara Muñiz MD PCP - General Family Medicine 03/27/18 documented as of this encounter
--- OUTSIDE RECORDS SUMMARY | 2024-04-18 00:13 | External Medical Summary | Summary of Care ---
Author Name Unknown Organization [facility] Address [address] [place] [address] Phone [phone] Care Team Providers Care Non Licensed Operator Name Role Phone Rigoberto Rodriguez MD Primary Care Provider [phone] Reason for Visit * Reason Onset Date Comments Urinary Tract Infection Symptoms Urinary Tract Infection Symptoms 01/07/2024 Encounter Details Date Type Department Care Team (Latest Contact Info) Description 01/07/2024 4:15 PM EST [facility] [address] [place] [address] [address] Damon PA-C [address] [place] [address] UTI symptoms*; Acute UTI; Paraplegia (HCC); Self-catheterizes urinary bladder Allergies Active Allergy Reactions Criticality Noted Date Comments Penicillins Hives 10/06/2020 Had hives on chest with trial of PCN September 2020 Tolerated ampicillin Tolerated amoxicillin Tolerated ceftriaxone Tolerated cefazolin documented as of this encounter (statuses as of 01/07/2024) Medications BISACODYL 10 MG OK SUPPIndications: Unspecified site of spinal cord injury without evidence of spinal bone injury,Paraplegi a (HCC),Closed fracture of thoracic vertebra (HCC),Acute constipation 1 Suppository OK EVERY OTHER DAY 0 0 8 Active [...] 10 MG Oral Tablet Extended Release 24 HourIndications: Spinal cord injury, thoracic region, subsequent encounter ([facility]),Chronic retention of urine Take 1 Tablet by mouth in the morning and 1 Tablet before bedtime. 180 Tablet 3 4 Active Sildenafil Citrate 20 MG Oral Tablet (Revatio)Indicat ions:Erectile dysfunction due to diseases classified elsewhere TAKE 1-5 TABLETS BY MOUTH AT LEAST 1 HOUR PRIOR TO INTERCOURSE NEEDED 90 Tablet 4 Active Famotidine 20 MG Oral Tablet (Pepcid) TAKE 1 TABLET BY MOUTH TWICE A DAY 60 Tablet 2 4 Active Acyclovir 400 MG Oral Tablet (Zovirax)Indicat ions:Herpes simplex virus infection TAKE 1 TABLET BY MOUTH TWICE A DAY 60 Tablet 2 4 Active One-A-Day Mens (Minerals) Oral Tablet Take [...] to 30 minutes.. 15 mL 4 Active oxyCODONE HCl 5 MG Oral Tablet (Oxy IR)Indications:P araplegia ([facility]) Take 1 Tablet by mouth every 4 hours as needed (pain). 150 Tablet 4 Active Gabapentin 300 MG Oral Capsule (Neurontin) TAKE 2 CAPSULES BY MOUTH 3 TIMES A DAY 450 Capsule 3 4 Active Sulfamethoxazole -Trimethoprim 800-160 MG Oral Tablet (Bactrim DS)Indications:U TI symptoms,Acute UTI,Paraplegia (HCC),Self-maida terizes urinary bladder Take 1 Tablet by mouth in the morning and 1 Tablet before bedtime. Do all this for 7 days. Until gone. 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 Increased risk for Rodriguez Syndrome. Gastroesophageal reflux disease 08/18/2019 Spinal cord injury, thoracic region, subsequent encounter 03/24/2019 MEDICATION USE AGREEMENT 01/09/2017 Overview (01/09/2017): Signed 07/01/16 Neurogenic bladder 10/07/2014 Low back pain 11/17/2013 Paraplegia 08/06/2007 Dyslipidemia, goal LDL below 100 documented as of this encounter (statuses as of 01/07/2024) Resolved Problems Problem Noted Date Diagnosed Date [...] as of this encounter (statuses as of 01/07/2024) Immunizations Name Administration Dates Next Due COVID-19 mRNA, LNP-s, No Pre serve, 2-Dose Series (Taggstar) 06/26/2020,06/05/2020 PPD 10/26/2021 Seasonal Influenza Vac., MDV, IM, 0.5 mL (Fluzon e) 11/30/2007 Seasonal Influenza, PF, 6 M & above, IM , (FluLaval or Fluzone) 11/21/2020,10/25/2019 TD, Preservative Free 07/21/2018 TDAP, Age 7 and older, IM (Adacel) 11/30/2007 documented as of this encounter Social History Tobacco Use Types Packs/Day Years Used Date Smoking Tobacco: Never Smokeless Tobacco: Never Tobacco Cessation:Counseling Given: No Alcohol Use Standard Drinks/Week Comments Yes 0 [...] on file documented as of this encounter Last Filed Vital Signs Vital Sign Reading Time Taken Comments Blood Pressure 108/78 01/07/2024 4:20 PM EST Pulse 108 01/07/2024 4:20 PM EST Temperature 36.2 C (97.1 F) 01/07/2024 4:20 PM ES T Respiratory Rate 18 01/07/2024 4:20 PM EST Oxygen Saturation 95% 01/07/2024 4:20 PM EST Inhaled Oxygen Concentration - - Weight 79.4 kg (175 lb) 01/07/2024 4:20 PM EST Height 182.9 cm (6') 01/07/2024 4:20 PM EST Body Mass Index 23.73 01/07/2024 4:20 PM EST documented in this encounter Progress Notes * Lane Damon PA-C - 01/07/2024 4:43 PM EST Nursing Notes: Rachana Urban, YARN HANDLER 01/07/24 1622 Signed Matt Almaraz is a 48 year old adult who presents to walk-in clinic today complaining of Chief Complaint Patient presents with Urinary Tract Infection Symptoms Brief history:pt is present with lower back pain, incontinence, odor with urine. Pt states having one previously Onset/duration 3x days Tried pt was prescribed antibiotics previously for same issue Effectiveness antibiotics did help Patient is accompanied by self for today's visit. CONVENIENT CARE PROGRESS NOTE Matt Almaraz is a 48 year old adult with a H paraplegia, self-caths of who presents with urinary tract symptoms. Patient was accompanied by Self. HPI: Severity of Symptoms: Moderate Modifying Factors (what was done since onset of Symptoms): none Timing (How often does it occur): constant Quality (Feels Like): back pain, frequency, urgency, and incontinence x last few days Other associated Signs and Symptoms: Subjective fever, but denies n/v. Denies hematuria. Reports malodorous urine. Reports he had a UTI a few weeks ago. Per chart review, he had a UTI in Nov and it grew Enterococcus, he was put on Ampicillin. He had another culture in mid Dec and it grew streptococcus viridans. ROS: See HPI HISTORY: Past Medical History: Diagnosis Date Dyslipidemia, goal LDL below 100 01/20 Esophageal reflux Neurogenic bladder Other genital herpes Paraplegia (HCC) T7-8 fracture Past Surgical History: Procedure Laterality Date BOTULINUMTOXIN A ([facility]), 1 UNIT, INJ. 05/26/2015 BOTOX X3 BOTULINUMTOXIN A ([facility]), 1 UNIT, INJ. 12/05/2017 INJECTION, ONABOTULINUMTOXIN A, 1 UNIT (BOTOX) performed by Silvia Rodriguez MD at OR [facility] CARPAL TUNNEL SURGERY Right 08/23/2019 NEUROPLASTY MEDIAN NERVE AT CARPAL TUNNEL performed by Obed Rincon DO at [facility] COLONOSCOPY, DIAGNOSTIC (RECTUM) 07/19/2020 Erythematous mucosa in rectun / non-specific finding called mild prolapse / 5 year recall / COLONOSCOPY FLEXIBLE PROXIMAL DIAGNOSTIC performed by Annalee Aguirre MD at ENDOSCOPY [facility] CYSTOSCOPY 07/27/2012 CYSTOSCOPY 10/14/2012 BYTOX. CYSTOSCOPY 09/18/2013 botox x2 CYSTOURETHROSCOPY, INJ FOR CHEMODENERVATION N/A 12/28/2020 CYSTOURETHROSCOPY, INJ FOR CHEMODENERVATION performed by Silvai Rodriguez MD at [facility] CYSTOURETHROSCOPY, INJ FOR CHEMODENERVATION N/A 12/27/2021 CYSTOURETHROSCOPY, INJ FOR CHEMODENERVATION performed by Silvia Rodriguez MD at [facility] EGD, FLEXIBLE, DIAGNOSTIC 07/19/2020 Normal scope / biopsies from your duodenum and stomach returned normal / ESOPHAGOGASTRODUODENOSCOPY(EGD), FLEXIBLE, TRANSORAL, DIAGNOSTIC performed by Annalee Aguirre MD at ENDOSCOPY [facility] IR VENOGRAM IVC 08/07/2007 IMAGING S&I VENA CAVA performed by SUSANNAH EID at [facility] LUMBAR SPINE FUSION, POSTEROLATERAL 08/07/2007 ARTHRODESIS SPINE POSTERIOR LUMBAR performed by Lorena THOMPSON at [facility] NONE PLACE CATHETER IN VENA CAVA 08/07/2007 CATHETER PLACEMENT, SVC OR IVC performed by SUSANNAH EID at [facility] VEIN FILTER PLACEMENT 08/07/2007 IMAGING S&I FILTER INSERTION performed by SUSANNAH EID at [facility] VENA CAVA FILTER/LIGATION/CLIP 08/07/2007 VENA CAVA FILTER INSERTION performed [place] SUSANNAH EID [place] [facility] Social History Socioeconomic History Marital status: Single Spouse name: Not on file Number of children: o Years of education: Not on file Highest education level: Not on file Occupational History Occupation: student Tobacco Use Smoking status: Never Smokeless tobacco: Never Substance and Sexual Activity Alcohol use: Yes Comment: occassional Drug use: No Sexual activity: Not on file Other Topics Concern Not on file Social History Narrative Lives on his own Social Needs Financial Resource Strain: Not on file Food Insecurity: No Food Insecurity (08/11/2018) Hunger Vital Sign Worried About Running Out of Food in the Last Year: Never true Ran Out of Food in the Last Year: Never true Transportation Needs: Not on file Social Connections: Not on file Housing Stability: Not on file Current Outpatient Medications Medication Sig Dispense Refill BISACODYL 10 MG OK SUPP 1 Suppository OK EVERY OTHER DAY 0 0 SELF-CATH STRAIGHT TIPPED CATH MISC 14french 180 Device 11 oxyBUTYnin Chloride ER 10 MG Oral Tablet Extended Release 24 Hour Take 1 Tablet by mouth in the morning and 1 Tablet before bedtime. 180 Tablet 3 Sildenafil Citrate 20 MG Oral Tablet (Revatio) TAKE 1-5 TABLETS BY MOUTH AT LEAST 1 HOUR PRIOR TO INTERCOURSE NEEDED 90 Tablet 0 Famotidine 20 MG Oral Tablet (Pepcid) TAKE 1 TABLET BY MOUTH TWICE A DAY 60 Tablet 2 Acyclovir 400 MG Oral Tablet (Zovirax) TAKE 1 TABLET BY MOUTH TWICE A DAY 60 Tablet 2 One-A-Day Mens (Minerals) Oral Tablet Take by mouth. Ampicillin 500 MG Oral Capsule Take 1 Capsule by mouth in the morning and 1 Capsule at noon and 1 Capsule in the evening and 1 Capsule before bedtime. 28 Capsule 0 oxyCODONE HCl 5 MG Oral Tablet (Oxy IR) Take 1 Tablet by mouth every 4 hours as needed (pain). 150 Tablet 0 Gabapentin 300 MG Oral Capsule (Neurontin) TAKE 2 CAPSULES BY MOUTH 3 TIMES A DAY 450 Capsule 3 Sulfamethoxazole-Trimethoprim 800-160 MG Oral Tablet (Bactrim DS) Take 1 Tablet by mouth in the morning and 1 Tablet before bedtime. Do all this for 7 days. Until gone. 14 Tablet 0 Ketoconazole 2 % cream Apply topically to affected area twice daily until resolved (Patient not taking: Reported on 03/13/2023) 15 g 1 Debrox 6.5 % Otic Solution (Carbamide Peroxide) Administer 5 Drops into the left ear in the morningand 5 Drops before bedtime. Fill ear canal and insert cotton plug. Remove plug after 15 to 30 minutes.. 15 mL 0 No current facility-administered medications for this visit. Review of patient's allergies indicates: Allergen Reactions Pcn [Penicillins] Hives Had hives on chest with trial of PCN September 2020 Tolerated ampicillin Tolerated amoxicillin Tolerated ceftriaxone Tolerated cefazolin Family History Problem Relation Name Age of Onset Cancer Mother lung, bone Heart Disorder Father pacemaker OBJECTIVE: BP 108/78 | Pulse 108 | Temp 36.2 C (97.1 F) (Tympanic) | Resp 18 | Ht 1.829 m (6') | Wt 79.4 kg (175 lb) | SpO2 95% | BMI 23.73 kg/m | BSA 2.01 m Wt Readings from Last 1 Encounters: 01/07/24 79.4 kg (175 lb) General appearance: awake, alert, no apparent distress Abdominal Exam: back: no CVA tenderness and abd: no suprapubic tenderness to palpation, no R/R/G, +BS Respiratory: clear to auscultation, no rhonchi, no wheezes, and no crackles Heart: regular rate, regular rhythm, no murmurs , no rubs, and no gallops Skin/Integumentary: warm, dry Results for orders placed or performed in visit on 12/25/23 CULTURE, URINE, QUANTITATIVE Specimen: Urine, Clean Catch Result Value Ref Range Culture Growth (A) 10,000 to 100,000 colonies/mL Streptococcus viridans group URINALYSIS, POINT OF CARE Result Value Ref Range Color, Urine Yellow Light Yellow, Yellow Clarity, Urine Clear Clear Glucose, Urine Negative Negative mg/dL Bilirubin, Urine Small (A) Negative Ketone, Urine 15 (A) Negative mg/dL Specific [place], Urine >=1.030 1.003 - 1.030 Blood, Urine Negative Negative pH, Urine 5.5 5.0, 5.5, 6.0, 6.5, 7.0, 7.5 units Protein, Urine Trace (A) Negative mg/dL Urobilinogen, Urine 1.0 0.2, 1.0 mg/dL Nitrite, Urine Negative Negative Esterase, Urine Negative Negative *Note: Due to a large number of results and/or encounters for the requested time period, some results have not been displayed. A complete set of results can be found in Results Review. There are no Patient Instructions on file for this visit. Assessment: UTI symptoms (Primary) - URINALYSIS, POINT OF CARE (ENTER/EDIT) - CULTURE, URINE, QUANTITATIVE - Sulfamethoxazole-Trimethoprim 800-160 MG Oral Tablet (Bactrim DS); Take 1 Tablet by mouth in the morning and 1 Tablet before bedtime. Do all this for 7 days. Until gone. Acute UTI - Sulfamethoxazole-Trimethoprim 800-160 MG Oral Tablet (Bactrim DS); Take 1 Tablet by mouth in the morning and 1 Tablet before bedtime. Do all this for 7 days. Until gone. Paraplegia (HCC) - Sulfamethoxazole-Trimethoprim 800-160 MG Oral Tablet (Bactrim DS); Take 1 Tablet by mouth in the morning and 1 Tablet before bedtime. Do all this for 7 days. Until gone. Self-catheterizes urinary bladder - Sulfamethoxazole-Trimethoprim 800-160 MG Oral Tablet (Bactrim DS); Take 1 Tablet by mouth in the morning and 1 Tablet before bedtime. Do all this for 7 days. Until gone. UA negative, but pt high risk with symptoms suspicious for UTI Will start abx and follow culture. Follow Up: Return for Patient to follow up with Primary Care Provider as directed. | For: Patient to follow up with Primary Care Provider as directed Follow-up with urology in 3 days ED if acutely worsens Patient goals for plan of care were discussed Lane Damon PA-C [place] [address] documented in this encounter Nursing Notes * Rachana Urban CMA - 01/07/2024 4:17 PM EST Matt Almaraz is a 48 year old adult who presents to walk-in clinic today complaining of Chief Complaint Patient presents with Urinary Tract Infection Symptoms Brief history:pt is present with lower back pain, incontinence, odor with urine. Pt states having one previously Onset/duration 3x days Tried pt was prescribed antibiotics previously for same issue Effectiveness antibiotics did help Patient is accompanied by self for today's visit. documented in this encounter Miscellaneous Notes * Addendum Note - Lane Damon PA-C - 01/07/2024 7:08 PM ESTAddended by: LANE DAMON on: 01/07/2024 07:08 PM Modules accepted: Orders documented in this encounter Plan of Treatment Upcoming Encounters Date Type Department Care Team ([facility] st Contact Info) Description 03/15/2024 2:00 PM EST Office Visit Dermatology [address] [address] Reggie Nevarez PA-C [address] [place] [phone] Pending Results Name Type Priority Associated Diagnoses Date /Time CULTURE, URINE, QUANTITATIVE Lab STAT UTI symptoms Acute UTI Paraplegia (HCC) Self-catheterizes urinary bladder 01/07/2024 7:10 PM EST Scheduled Orders Name Type Priority Associated Diagnoses Orde r Schedule CULTURE, URINE, QUANTITATIVE Lab STAT UTI symptoms Acute UTI Paraplegia (HCC) Self-catheterizes urinary bladder Expected: 01/07/2024, Expires: 01/06/2025 Scheduled Procedures Name Priority Associated Diagnoses Date/Ti [...] this encounter Medical Devices Implanted Type Area Safety Patrol Officer Device Identifier Shelf Expiration Date Model / Serial / Lot Graft Healos [facility] 2761-60-005 - [id number] Implanted:Qty : 2 on 08/07/2007 [place] [facility] [place]: Spine Lumbar [employer]AR[employer] JAROD DEPUY [id number] / / Filter Tulip Hunter Fem [id number] - [id number] Implanted:Qty : 1 on 08/07/2007 at [place] [facility] Right: Groin [employer] 05/11/2010 [id number] / / [id number] Graft Healos [facility] 2761-60-010 - [id number] Implanted:Qty : 2 on 08/07/2007 at [place] [facility] N/A: Spine Lumbar JAROD [employer] JAROD DEPUY [id number] / / Screw 5x35 Poly Si [id number] - [id number] Implanted:Qty : 4 on 08/07/2007 at [facility] N/A: Spine Thoracic [employer]AR[employer] JAR[employer] DEPUY [id number] / / Screw 6x35 Poly Si [id number] - [id number] Implanted:Qty : 4 on 08/07/2007 at [place] [facility] N/A: Spine Thoracic [employer]AR[employer] JAR[employer] DEPUY [id number] / / Hook Blade Wide [id number] - [id number] Implanted:Qty : 2 on 08/07/2007 at [place] [facility] [place]/A: Spine Thoracic JAR[employer] JAR[employer] DEPUY [id number] / / Screw Set Sng Inner [id number] - [id number] Implanted:Qty : 14 on 08/07/2007 at [facility] N/A: Spine Thoracic JAROD [employer] JAROD DEPUY [id number] / / Screw 6x40 Poly Si [id number] - [id number] Implanted:Qty : 3 on 08/07/2007 at [place] [facility] [place]/A: Spine Thoracic [employer]AR[employer] JAR[employer] DEPUY [id number] / / Pb 480mm [id number] - [id number] Implanted:Qty : 1 on 08/07/2007 at [place] [facility] N/A: Spine Thoracic JAR[employer] JAR[employer] DEPUY [id number] / / Screw 7x40 Poly Si [id number] - [id number] Implanted:Qty : 2 on 08/07/2007 at [place] [facility] [place]/A: Spine Thoracic [employer]AR[employer] JAR[employer] DEPUY [id number] / / documented as of this encounter Procedures Procedure Name Priority Date/Time Associated Diagnosis Comments URINALYSIS, POINT OF CARE (ENTER/EDIT) Routine 01/07/2024 4:48 PM EST UTI symptoms documented in this encounter Results * (ABNORMAL) URINALYSIS, POINT OF CARE (ENTER/EDIT) (01/07/2024 4:48 PM EST) Color, Urine Alexa Yellow or Light Yellow Clarity, Urine Slightly Cloudy Clear Glucose, Urine Negative Negative mg/dL Bilirubin, Urine Moderate Negative Ketone, Urine Negative Negative mg/dL Specific [place], Urine 1.030 1.003 - 1.030 Blood, Urine Trace-intact Negative pH, Urine 6.5 5.0 - 7.5 units Protein, Urine 30 Negative mg/dL Urobilinogen, Urine 4.0 0.2 - 1.0 mg/dL Nitrite, Urine Negative Negative Esterase, Urine Negative Negative Urine 01/07/2024 4:[address] Damon PA-C LAB POINT OF CARE TEST ENTER/EDIT ORDERABLES Final Result documented in this encounter Visit Diagnoses Diagnosis UTI symptoms- Primary Other symptoms involving urinary system Acute UTI Urinary tract infection, site not specified Paraplegia (HCC) Paraplegia Self-catheterizes urinary bladder Other specified conditions influencing health status documented in this encounter Advance Directives * [...] and were consensually agreed upon. Care Teams Non Licensed Operator Relationship Specialty Start Date End Date Rigoberto Rodriguez MD [address] [place] [address] PCP - General Family Medicine 03/27/18 documented as of this encounter"
--- OUTSIDE RECORDS SUMMARY | 2024-04-18 00:13 | External Medical Summary | Summary of Care ---
Author Name Unknown Organization [facility] Address [address] [place] [address] Phone [phone] Care Team Providers Care Overhead Crane Operator Name Role Phone Rigoberto Rodriguez MD Primary Care Provider [phone]- [phone] Reason for Visit * Reason Onset Date Comments Nurse Documentation 03/01/2024 Encounter Details Date Type Department Care Team (Late st Contact Info) Description 03/01/2024 Telephone [facility] [place] [address] [facility] [place] [address] Rigoberto Rodriguez MD [address] [place] [address] Nurse Documentation Allergies Active Allergy Reactions Criticality Noted Date Comments Penicillins Hives 10/06/2020 Had hives on chest with trial of PCN September 2020 Tolerated ampicillin Tolerated amoxicillin Tolerated ceftriaxone Tolerated cefazolin documented as of this encounter (statuses as of 03/01/2024) Medications BISACODYL 10 MG ND SUPPIndications: Unspecified site of spinal cord injury without evidence of spinal bone injury,Paraplegi a (HCC),Closed fracture of thoracic vertebra (HCC),Acute constipation 1 Suppository ND EVERY OTHER DAY 0 0 8 Active [...] A DAY 60 Tablet 5 4 Active oxyCODONE HCl 5 MG Oral Tablet (Oxy IR)Indications:P araplegia (HCC) Take 1 Tablet by mouth every 4 hours as needed (pain). 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 Increased risk for Rodriguez Syndrome. Gastroesophageal reflux disease 08/18/2019 Spinal cord injury, thoracic region, subsequent encounter 03/24/2019 MEDICATION USE AGREEMENT 01/09/2017 Overview (01/09/2017): Signed 07/01/16 Neurogenic bladder 10/07/2014 Low back pain 11/17/2013 Paraplegia 08/06/2007 Dyslipidemia, goal LDL below 100 documented as of this encounter (statuses as of 03/01/2024) Resolved Problems Problem Noted Date Diagnosed Date [...] as of this encounter (statuses as of 03/01/2024) Immunizations Name Administration Dates Next Due COVID-19 [...] Encounter - Silvia Mobley, MED ASSIST - 03/01/2024 10:51 AM EST Received Fax for BFPROVIDERS: Dr. Rigoberto Rodriguez ORDER received from [facility] and FAXED documented in this encounter Plan of Treatment Upcoming Encounters Date Type Department Care Team ([facility] st Contact Info) Description 03/15/2024 2:00 PM EST Office Visit Dermatology [facility] [address] [place] [phone] Reggie Nevarez PA-C [address] [place] [phone] Scheduled Procedures Name Priority Associated Diagnoses Date/Ti [...] this encounter Medical Devices Implanted Type Area Community Integration Specialist Device Identifier Shelf Expiration Date Model / Serial / Lot Graft Healos [facility] 2761-60-005 - [id number] Implanted:Qty : 2 on 08/07/2007 at [place] [facility] N/A: Spine Lumbar JAROD [employer] JAROD DEPUY [id number] / / Filter Lukasz Harrison Fem [id number] - [id number] Implanted:Qty : 1 on 08/07/2007 at OR [facility] Right: Quynh [employer] 05/11/2010 [id number] / / [id number] Graft Healos [facility] 2761-60-010 - [id number] Implanted:Qty : 2 on 08/07/2007 at OR [facility] [place] N/A: Spine Lumbar JAROD [employer] JAR[employer] DEPUY [id number] / / Screw 5x35 Poly Si [id number] - [id number] Implanted:Qty : 4 on 08/07/2007 at OR [facility] [place] [facility] N/A: Spine Thoracic [employer]AR[employer] JAR[employer] DEPUY [id number] / / Screw 6x35 Poly Si [id number] - [id number] Implanted:Qty : 4 on 08/07/2007 at OR [facility] [place] [facility] N/A: Spine Thoracic JAROD [employer] JAROD DEPUY [id number] / / Hook Blade Wide [id number] - [id number] Implanted:Qty : 2 on 08/07/2007 at OR [facility] [place] N/A: Spine Thoracic JAR[employer] JAR[employer] DEPUY [id number] / / Screw Set Sng Inner [id number] - [id number] Implanted:Qty : 14 on 08/07/2007 at OR [facility] N/A: Spine Thoracic JAR[employer] JAR[employer] DEPUY [id number] / / Screw 6x40 Poly Si [id number] - [id number] Implanted:Qty : 3 on 08/07/2007 at OR [facility] [place] N/A: Spine Thoracic JAORD & JAROD DEPUY [id number] / / Pb 480mm [id number] - [id number] Implanted:Qty : 1 on 08/07/2007 at OR [facility] [place] N/A: Spine Thoracic [employer]AR[employer]AR[employer] DE[employer]Y [id number] / / Screw 7x40 Poly Si [id number] - [id number] Implanted:Qty : 2 on 08/07/2007 at OR [facility] [place] N/A: Spine Thoracic JAROD [employer] JAROD DEPUY [id number] / / documented as of this encounter [...] and were consensually agreed upon. Care Teams Overhead Crane Operator Relationship Specialty Start Date End Date Rigoberto Rodriguez MD PCP - General Family Medicine 03/27/18 documented as of this encounter
--- OUTSIDE RECORDS SUMMARY | 2024-04-18 00:13 | External Medical Summary | Summary of Care ---
Author Name Unknown Organization [facility] Address [address] [place] [address] Phone [phone] Care Team Providers Care Returned Case Inspector Name Role Phone Rigoberto Rodriguez MD Primary Care Provider +1- [phone] Reason for Visit * Reason Onset Date Comments Urinary Tract Infection Symptoms Urinary Tract Infection Symptoms 01/07/2024 Encounter Details Date Type Department Care Team (Latest Contact Info) Description 01/07/2024 4:15 PM EST [facility] [address] [place] [address] [address] Damon PA-C [address] [place] [address] UTI symptoms*; Acute UTI; Paraplegia (HCC); Self-catheterizes urinary bladder Allergies Active Allergy Reactions Criticality Noted Date Comments Penicillins Hives 10/06/2020 Had hives on chest with trial of PCN September 2020 Tolerated ampicillin Tolerated amoxicillin Tolerated ceftriaxone Tolerated cefazolin documented as of this encounter (statuses as of 01/07/2024) Medications BISACODYL 10 MG [place] SUPPIndications: Unspecified site of spinal cord injury without evidence of spinal bone injury,Paraplegi a (HCC),Closed fracture of thoracic vertebra (HCC),Acute constipation 1 Suppository [place] EVERY OTHER DAY 0 0 8 Active [...] cord injury, thoracic region, subsequent encounter ([facility]),Chronic retention of urine Take 1 Tablet by [...] MG Oral Tablet (Oxy IR)Indications:P araplegia ([facility]) Take 1 Tablet by mouth every 4 [...] Overview (05/12/2020): pathogenic MSH6 gene variant (c.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 Increased risk for Rodriguez Syndrome. Gastroesophageal reflux [...] mRNA, LNP-s, No Pre serve, 2-Dose Series (EdeniQ) 06/26/2020,06/05/2020 PPD 10/26/2021 Seasonal Influenza Vac., MDV, [...] 4:43 PM EST Nursing Notes: Rachana Urban, TRANSPLANT COORDINATOR 01/07/24 1622 Signed Matt Almaraz is a [...] performed by Silvia Rodriguez MD at OR [facility] CARPAL TUNNEL SURGERY Right 08/23/2019 NEUROPLASTY MEDIAN NERVE AT CARPAL TUNNEL performed by Obed Rincon DO at [facility] COLONOSCOPY, DIAGNOSTIC (RECTUM) 07/19/2020 Erythematous mucosa in rectun / non-specific finding called mild prolapse / 5 year recall / COLONOSCOPY FLEXIBLE PROXIMAL DIAGNOSTIC performed by Annalee Aguirre MD at ENDOSCOPY [facility] CYSTOSCOPY 07/27/2012 CYSTOSCOPY 10/14/2012 BYTOX. CYSTOSCOPY 09/18/2013 botox x2 CYSTOURETHROSCOPY, INJ FOR CHEMODENERVATION N/A 12/28/2020 CYSTOURETHROSCOPY, INJ FOR CHEMODENERVATION performed by Silvia Rodriguez MD at [facility] CYSTOURETHROSCOPY, INJ FOR CHEMODENERVATION N/A 12/27/2021 CYSTOURETHROSCOPY, INJ FOR CHEMODENERVATION performed by Silvia Rodriguez MD at [facility] EGD, FLEXIBLE, DIAGNOSTIC 07/19/2020 Normal scope / biopsies from your duodenum and stomach returned normal / ESOPHAGOGASTRODUODENOSCOPY(EGD), FLEXIBLE, TRANSORAL, DIAGNOSTIC performed by Annalee Aguirre MD at ENDOSCOPY [facility] IR VENOGRAM IVC 08/07/2007 IMAGING S&I VENA CAVA performed by SUSANNAH EID at [facility] LUMBAR SPINE FUSION, POSTEROLATERAL 08/07/2007 ARTHRODESIS SPINE POSTERIOR LUMBAR performed by Lorena THOMPSON at [facility] NONE PLACE CATHETER IN VENA CAVA 08/07/2007 CATHETER PLACEMENT, SVC OR IVC performed by SUSANNAH EID at [facility] VEIN FILTER PLACEMENT 08/07/2007 IMAGING S&I FILTER INSERTION performed by SUSANNAH EID at [facility] VENA CAVA FILTER/LIGATION/CLIP 08/07/2007 VENA CAVA FILTER INSERTION performed by SUSANNAH EID at [facility] Social History Socioeconomic History Marital status: Single [...] Medication Sig Dispense Refill BISACODYL 10 MG IL SUPP 1 Suppository [place] EVERY OTHER DAY 0 0 SELF-CATH STRAIGHT [...] Ketone, Urine 15 (A) Negative mg/dL Specific [place], Urine >=1.030 1.003 - 1.030 Blood, Urine [...] of care were discussed Lane Damon PA-C [place] [address] documented in this encounter Nursing Notes * [...] for today's visit. documented in this encounter Plan of Treatment Upcoming Encounters Date Type Department Care Team ([facility] st Contact Info) Description 03/15/2024 2:00 PM EST Office Visit Dermatology [facility] [address] [place] [id number] Reggie Nevarez PA-C [address] [place] [address] Scheduled Procedures Name Priority Associated Diagnoses Date/Ti [...] this encounter Medical Devices Implanted Type Area Batch Tank Controller Device Identifier Shelf Expiration Date Model / Serial / Lot Graft Healos 5cc 2761-60-005 - [id number] Implanted:Qty : 2 on 08/07/2007 at [place] [facility] N/A: Spine Lumbar JAROD & JAROD DEPUY [id number] / / Filter Tulip Gunth Fem [id number] - [id number] Implanted:Qty : 1 on 08/07/2007 at [place] [facility] Right: Groandriy [employer] 05/11/2010 [id number] / / [id number] Graft Healos [facility] 2761-60-010 - [id number] Implanted:Qty : 2 on 08/07/2007 at [place] [facility] N/A: Spine Lumbar JAROD & JAROD DEPUY [id number] / / Screw 5x35 Poly Si [id number] - [id number] Implanted:Qty : 4 on 08/07/2007 at [place] [facility] N/A: Spine Thoracic JAROD & JAROD DEPUY [id number] / / Screw 6x35 Poly Si [id number] - [id number] Implanted:Qty : 4 on 08/07/2007 at [place] [facility] N/A: Spine Thoracic JAROD & JAROD DEPUY [id number] / / Hook Blade Wide [id number] - [id number] Implanted:Qty : 2 on 08/07/2007 at [place] [facility] N/A: Spine Thoracic JAROD & JAROD DEPUY [id number] / / Screw Set Sng Inner [id number] - [id number] Implanted:Qty : 14 on 08/07/2007 at [place] [facility] N/A: Spine Thoracic JAROD & JAROD DEPUY [id number] / / Screw 6x40 Poly Si [id number] - [id number] Implanted:Qty : 3 on 08/07/2007 at [place] [facility] N/A: Spine Thoracic JAROD & JAROD DEPUY [id number] / / Pb 480mm [id number] - [id number] Implanted:Qty : 1 on 08/07/2007 at [place] [facility] N/A: Spine Thoracic JAROD & JAROD DEPUY [id number] / / Screw 7x40 Poly Si [id number] - [id number] Implanted:Qty : 2 on 08/07/2007 at [place] [facility] N/A: Spine Thoracic JAROD & JAROD DEPUY [id number] / / documented as of this encounter [...] Negative Ketone, Urine Negative Negative mg/dL Specific [place], Urine 1.030 1.003 - 1.030 Blood, Urine [...] and were consensually agreed upon. Care Teams Returned Case Inspector Relationship Specialty Start Date End Date Rigoberto Rodriguez MD [address] [place] [address] PCP - General Family Medicine 03/27/18 documented as of this encounter"
--- OUTSIDE RECORDS SUMMARY | 2024-04-18 00:13 | External Medical Summary | Summary of Care ---
Author Name Unknown Organization [facility] Address [address] [facility] [place] [address] Phone [phone] Care Team Providers Care Airline Customer Service Agent Name Role Phone Siomara Muñiz MD Primary Care Provider +1- [phone] Reason for Visit * Reason Comments eRx-Medication Refill Encounter Details Date Type Department Care Team (Late st Contact Info) Description 02/26/2024 Refill [facility] [address] [place] [address] Daksha Lincoln PA-C [address] [place] [id number] Spinal cord injury, thoracic region, subsequent encounter ([facility]); Chronic retention of urine Allergies Active Allergy Reactions Criticality Noted Date Comments Penicillins Hives 10/06/2020 Had hives on chest with trial of PCN September 2020 Tolerated ampicillin Tolerated amoxicillin Tolerated ceftriaxone Tolerated cefazolin documented as of this encounter (statuses as of 02/26/2024) Medications BISACODYL 10 MG [place] SUPPIndications :Unspecified site of spinal cord injury without evidence of spinal bone injury,Parapleg ia ([facility]),Closed fracture of thoracic vertebra ([facility]),Acute constipation 1 Suppository [place] EVERY OTHER DAY 0 0 08/17/19 08 [...] DAY 60 Tablet 5 01/29/20 24 Active oxyCODONE HCl 5 MG Oral Tablet (Oxy IR)Indications: Paraplegia (HCC) Take 1 Tablet by mouth every 4 hours as needed (pain). 150 Tablet 02/02/20 24 Active oxyBUTYnin Chloride ER 10 MG Oral Tablet Extended Release 24 Hour (Ditropan XL)Indications: Spinal cord injury, thoracic region, subsequent encounter (HCC),Chronic retention of urine TAKE 1 TABLET BY MOUTH IN THE MORNING AND BEFORE BEDTIME 180 Tablet 3 02/25/19 25 Active oxyBUTYnin Chloride ER 10 MG Oral Tablet Extended Release 24 HourIndications :Spinal cord injury, thoracic region, subsequent encounter (HCC),Chronic retention of urine Take 1 Tablet by mouth in the morning and 1 Tablet before bedtime. 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 Increased risk for Rodriguez Syndrome. Gastroesophageal reflux disease 08/18/2019 Spinal cord injury, thoracic region, subsequent encounter 03/24/2019 MEDICATION USE AGREEMENT 01/09/2017 Overview (01/09/2017): Signed 07/01/16 Neurogenic bladder 10/07/2014 Low back pain 11/17/2013 Paraplegia 08/06/2007 Dyslipidemia, goal LDL below 100 documented as of this encounter (statuses as of 02/26/2024) Resolved Problems Problem Noted Date Diagnosed Date [...] as of this encounter (statuses as of 02/26/2024) Immunizations Name Administration Dates Next Due COVID-19 mRNA, LNP-s, No Pre serve, 2-Dose Series ([employer]) 06/26/2020,06/05/2020 PPD 10/26/2021 Seasonal Influenza Vac., MDV, [...] Telephone Encounter - Siomara Muñiz MD - 02/26/2024 9:09 AM ESTSigned Prescriptions: Disp Refills oxyBUTYnin Chloride ER 10 MG Oral Tablet E*180 Ta*3 Sig: TAKE 1TABLET BY MOUTH IN THE MORNING AND BEFORE BEDTIMEAuthorizing Provider: SIOMARA MUÑIZ * Telephone Encounter - Kimmy Campbell LPN - 02/26/2024 9:03 AM ESTPending Prescriptions: Disp Refills oxyBUTYnin Chloride ER 10 MG Oral Tablet E*180 Ta*3 Sig: TAKE 1 TABLET BY MOUTH IN THE MORNING AND BEFORE BEDTIME * Telephone Encounter - Kimmy Campbell LPN - 02/26/2024 9:02 AM EST Pending Prescriptions: Disp Refills oxyBUTYnin Chloride ER 10 MG Oral Tablet *180 Ta*3 Sig: TAKE 1 TABLET BY MOUTH IN THE MORNING AND BEFORE BEDTIME Last Visit: Visit date not found (in office), Visit date not found (telemedicine) Next Visit: Visit date not found Last date the medication was ordered: 02/21/2023 Patient Active Problem List Diagnosis Paraplegia ([facility]) Dyslipidemia, goal LDL below 100 Low back pain Neurogenic bladder MEDICATION USE AGREEMENT Spinal cord injury, thoracic region, subsequent encounter ([facility]) Gastroesophageal reflux disease Monoallelic mutation of MSH6 gene Labs: Lab Results Component Value Date/Time CREATININE - [facility] 1.1 12/17/2021 01:39 PM CREATININE - [facility] 1.0 08/19/2019 01:49 PM Lab Results Component Value Date/Time POTASSIUM - [facility] 3.9 12/17/2021 01:39 PM POTASSIUM - [facility] 4.6 08/19/2019 01:49 PM POTASSIUM POCT - [facility] 4.6 08/07/2007 05:04 PM No results found for: "TSH" Lab Results Component Value Date/Time LDL CHOLESTEROL (CALCULATED) - [facility] 163 (H) 01/16/2011 09:55 AM Lab Results Component Value Date/Time ALT - [facility] 32 08/19/2019 01:49 PM Hemoglobin AIC Results: No results found for: "HEMOGLOBIN A1C" * Telephone Encounter - Carrol Tian - 02/26/2024 4:13 AM ESTPending Prescriptions: Disp Refills oxyBUTYnin Chloride ER 10 MG Oral Tablet E*180 Ta*3 Sig: TAKE 1 TABLET BY MOUTH IN THE MORNING AND BEFORE BEDTIME documented in this encounter Plan of Treatment Upcoming Encounters Date Type Department Care Team ([facility] st Contact Info) Description 03/15/2024 2:00 PM EST Office Visit Dermatology [facility] [address] [facility] [place] [address] Reggie Nevarez PA-C [address] [place] [address] [place] [address] Scheduled Procedures Name Priority Associated Diagnoses Date/Ti [...] this encounter Medical Devices Implanted Type Area Reducer Device Identifier Shelf Expiration Date Model / Serial / Lot Graft Healos [facility] 2761-60-005 - [id number] Implanted:Q[place] : 2 [place]07[place] [facility] [place]: Spine Lumbar JAROD & JAROD DEPUY [id number] / / Filter Lukasz Lopez [id number] - [id number] Implanted:Qty : 1 on 08/07/2007 [place] [facility] Right: Groin [employer] 05/11/2010 [id number] / / [id number] Graft Healos [facility] 2761-60-010 - [id number] Implanted:Qty : 2 on 08/07/2007 [place] [facility] [place]/A: Spine Lumbar JAROD & JAROD DEPUY [id number] / / Screw 5x35 Poly Si [id number] - [id number] Implanted:Qty : 4 on 08/07/2007 [place] [facility] [place]/A: Spine Thoracic JAROD & JAROD DEPUY [id number] / / Screw 6x35 Poly Si [id number] - [id number] Implanted:Qty : 4 on 08/07/2007 [place] [facility] [place]/A: Spine Thoracic JAROD & JAROD DEPUY [id number] / / Hook Blade Wide [id number] - [id number] Implanted:Qty : 2 on 08/07/2007 [place] [facility] [place]/A: Spine Thoracic JAROD [employer] JAROD DEPUY [id number] / / Screw Set Sng Inner [id number] - [id number] Implanted:Qty : 14 on 08/07/2007 [place] [facility] [place]/A: Spine Thoracic JAROD [employer] JAROD DEPUY [id number] / / Screw 6x40 Poly Si [id number] - [id number] Implanted:Qty : 3 on 08/07/2007 [place] [facility] [place]/A: Spine Thoracic JAROD [employer] JAROD DEPUY [id number] / / Pb 480mm [id number] - [id number] Implanted:Qty : 1 on 08/07/2007 [place] [facility] [place]/A: Spine Thoracic JAROD [employer] JAROD DEPUY [id number] / / Screw 7x40 Poly Si [id number] - [id number] Implanted:Qty : 2 on 08/07/2007 [place] [facility] N/A: Spine Thoracic JARDO & JAROD DEPUY [id number] / / documented as of this encounter Visit Diagnoses Diagnosis Spinal cord injury, thoracic region, subsequent encounter (HCC) Chronic retention of urine Other specified retention of urine documented in this encounter Advance Directives * [...] and were consensually agreed upon. Care Teams Airline Customer Service Agent Relationship Specialty Start Date End Date Siomara Muiñz MD PCP - General Family Medicine 03/27/18 documented as of this encounter
--- OUTSIDE RECORDS SUMMARY | 2024-04-18 00:13 | External Medical Summary | Summary of Care ---
Author Name Unknown Organization [facility] Address [address] [place] [address] Phone [phone] Care Team Providers Care Equity Manager Name Role Phone Rigoberto Rodriguez MD Primary Care Provider +1- [phone] Reason for Visit * Reason Onset Date Comments Medication Refill 02/02/2024 Encounter Details Date Type Department Care Team (Late st Contact Info) Description 02/02/2024 Refill [facility] [address] [place] [address] Rigoberto Rodriguez MD [address] [facility] [place] [id number] Paraplegia (HCC) Allergies Active Allergy Reactions Criticality Noted Date Comments Penicillins Hives 10/06/2020 Had hives on chest with trial of PCN September 2020 Tolerated ampicillin Tolerated amoxicillin Tolerated ceftriaxone Tolerated cefazolin documented as of this encounter (statuses as of 02/05/2024) Medications BISACODYL 10 MG ID SUPPIndications: Unspecified site of spinal cord injury without evidence of spinal bone injury,Paraplegi a (HCC),Closed fracture of thoracic vertebra (HCC),Acute constipation 1 Suppository ID EVERY OTHER DAY 0 0 8 Active [...] Spinal cord injury, thoracic region, subsequent encounter ([facility]),Chronic retention of urine Take 1 Tablet by mouth in the morning and 1 Tablet before bedtime. 180 Tablet 3 4 Active One-A-Day Mens (Minerals) Oral Tablet [...] 5 MG Oral Tablet (Oxy IR)Indications:P araplegia ([facility]) Take 1 Tablet by mouth every 4 hours as needed (pain). 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 Increased risk for Rodriguez Syndrome. Gastroesophageal reflux disease 08/18/2019 Spinal cord injury, thoracic region, subsequent encounter 03/24/2019 MEDICATION USE AGREEMENT 01/09/2017 Overview (01/09/2017): Signed 07/01/16 Neurogenic bladder 10/07/2014 Low back pain 11/17/2013 Paraplegia 08/06/2007 Dyslipidemia, goal LDL below 100 documented as of this encounter (statuses as of 02/05/2024) Resolved Problems Problem Noted Date Diagnosed Date [...] as of this encounter (statuses as of 02/05/2024) Immunizations Name Administration Dates Next Due COVID-19 [...] on file documented as of this encounter Plan of Treatment Upcoming Encounters Date Type Department Care Team ([facility] Contact Info) Description 03/15/2024 2:00 PM EST Office Visit Dermatology [address] [address] Reggie Nevarez PA-C [address] [place] [address] Scheduled Procedures Name Priority Associated Diagnoses Date/Ti [...] this encounter Medical Devices Implanted Type Area Supervisor Bottle House Cleaners Device Identifier Shelf Expiration Date Model / Serial / Lot Graft Healos [facility] 2761-60-005 - [id number] Implanted:Qty : 2 on 08/07/[place] [facility] [place]: Spine Lumbar JAROD & JAROD DEPUY [id number] / / Filter Lukasz Lopez [id number] - [id number] Implanted:Qty : 1 on 08/07/2007 [place] [facility] Right: Groin [employer] 05/11/2010 [id number] / / [id number] Graft Healos 10 2761-60-010 - [id number] Implanted:Qty : 2 on 08/07/2007 [place] [facility] [place]/A: Spine Lumbar JAROD & JAROD DEPUY [id number] / / Screw 5x35 Poly Si [id number] - [id number] Implanted:Qty : 4 on 08/07/2007 [place] [facility] [place]/A: Spine Thoracic JAROD & JAROD DEPUY [id number] / / Screw 6x35 Poly Si [id number] - [id number] Implanted:Qty : 4 on 08/07/2007 at [place] [facility] [place]/A: Spine Thoracic JAROD & JAROD DEPUY [id number] / / Hook Blade Wide [id number] - [id number] Implanted:Qty : 2 on 08/07/2007 [place] [facility] [place]/A: Spine Thoracic JAROD & JAROD DEPUY [id number] / / Screw Set Sng Inner [id number] - [id number] Implanted:Qty : 14 on 08/07/2007 [place] [facility] [place]/A: Spine Thoracic JAROD & JAROD DEPUY [id number] / / Screw 6x40 Poly Si [id number] - [id number] Implanted:Qty : 3 on 08/07/2007 [place] [facility] [place]/A: Spine Thoracic JAROD [employer] JAROD DEPUY [id number] / / Pb 480mm [id number] - [id number] Implanted:Qty : 1 on 08/07/2007 [place] [facility] [place]/A: Spine Thoracic JAROD & JAROD DEPUY [id number] / / Screw 7x40 Poly Si [id number] - [id number] Implanted:Qty : 2 on 08/07/2007 [place] [facility] N/A: Spine Thoracic JAROD [employer] JAROD DEPUY [id number] / / documented as of this encounter [...] and were consensually agreed upon. Care Teams Equity Manager Relationship Specialty Start Date End Date Rigoberto Rodriguez MD PCP - General Family Medicine 03/27/18 documented as of this encounter
--- OUTSIDE RECORDS SUMMARY | 2024-04-18 00:13 | External Medical Summary | Summary of Care ---
Author Name Unknown Organization [facility] Address [address] [place] [address] Phone [phone] Care Team Providers Care Ground Support Equipment Assembler Name Role Phone Rigoberto Rodriguez MD Primary Care Provider +1- [phone] Reason for Visit * Reason Onset Date Comments Urinary Tract Infection Symptoms Urinary Tract Infection Symptoms 01/07/2024 Encounter Details Date Type Department Care Team (Latest Contact Info) Description 01/07/2024 4:15 PM EST [facility] [address] [place] [address] [address] Damon PA-C [address] [place] [address] UTI symptoms*; Acute UTI; Paraplegia (HCC); Self-catheterizes urinary bladder Allergies Active Allergy Reactions Criticality Noted Date Comments Penicillins Hives 10/06/2020 Had hives on chest with trial of PCN September 2020 Tolerated ampicillin Tolerated amoxicillin Tolerated ceftriaxone Tolerated cefazolin documented as of this encounter (statuses as of 01/07/2024) Medications BISACODYL 10 MG [place] SUPPIndications: Unspecified site of spinal cord injury without evidence of spinal bone injury,Paraplegi a (HCC),Closed fracture of thoracic vertebra (HCC),Acute constipation 1 Suppository [place] EVERY OTHER DAY 0 0 8 Active [...] Spinal cord injury, thoracic region, subsequent encounter ([facility]),Chronic retention of urine Take 1 [...] 5 MG Oral Tablet (Oxy IR)Indications:P araplegia ([facility]) Take 1 Tablet by mouth [...] Overview (05/12/2020): pathogenic MSH6 gene variant (c.3261delC, p.[id number]) detected via [employer]. Increased risk for Rodriguez Syndrome. Gastroesophageal reflux [...] mRNA, LNP-s, No Pre serve, 2-Dose Series ([employer]) 06/26/2020,06/05/2020 PPD 10/26/2021 Seasonal Influenza Vac., MDV, [...] 4:43 PM EST Nursing Notes: Rachana Urban, COVER CUTTER MACHINE 01/07/24 1622 Signed Matt Almaraz is a [...] performed by Silvia Rodriguez MD at OR [facility] CARPAL TUNNEL SURGERY Right 08/23/2019 NEUROPLASTY MEDIAN NERVE AT CARPAL TUNNEL performed by Obed Rincon DO at [facility] COLONOSCOPY, DIAGNOSTIC (RECTUM) 07/19/2020 Erythematous mucosa in rectun / non-specific finding called mild prolapse / 5 year recall / COLONOSCOPY FLEXIBLE PROXIMAL DIAGNOSTIC performed by Annalee Aguirre MD at ENDOSCOPY [facility] CYSTOSCOPY 07/27/2012 CYSTOSCOPY 10/14/2012 BYTOX. CYSTOSCOPY 09/18/2013 botox x2 CYSTOURETHROSCOPY, INJ FOR CHEMODENERVATION N/A 12/28/2020 CYSTOURETHROSCOPY, INJ FOR CHEMODENERVATION performed by Silvia Rodriguez MD at [facility] CYSTOURETHROSCOPY, INJ FOR CHEMODENERVATION N/A 12/27/2021 CYSTOURETHROSCOPY, INJ FOR CHEMODENERVATION performed by Silvia Rodriguez MD at [facility] EGD, FLEXIBLE, DIAGNOSTIC 07/19/2020 Normal scope / biopsies from your duodenum and stomach returned normal / ESOPHAGOGASTRODUODENOSCOPY(EGD), FLEXIBLE, TRANSORAL, DIAGNOSTIC performed by Annalee Aguirre MD at ENDOSCOPY [facility] IR VENOGRAM IVC 08/07/2007 IMAGING S&I VENA CAVA performed by SUSANNAH EID at [facility] LUMBAR SPINE FUSION, POSTEROLATERAL 08/07/2007 ARTHRODESIS SPINE POSTERIOR LUMBAR performed by Lorena THOMPSON at [facility] NONE PLACE CATHETER IN VENA CAVA 08/07/2007 CATHETER PLACEMENT, SVC OR IVC performed by SUSANNAH EID at [facility] VEIN FILTER PLACEMENT 08/07/2007 IMAGING S&I FILTER INSERTION performed by SUSANNAH EID at [facility] VENA CAVA FILTER/LIGATION/CLIP 08/07/2007 VENA CAVA FILTER INSERTION [place]H [place] [facility] Social History Socioeconomic History Marital status: Single [...] Medication Sig Dispense Refill BISACODYL 10 MG [place] SUPP 1 Suppository [place] EVERY OTHER DAY 0 0 SELF-CATH STRAIGHT [...] Ketone, Urine 15 (A) Negative mg/dL Specific [place], Urine >=1.030 1.003 - 1.030 Blood, Urine [...] of care were discussed Lane Damon PA-C [place] [address] documented in this encounter Nursing Notes * [...] Upcoming Encounters Date Type Department Care Team ([facility] st Contact Info) Description 03/15/2024 2:00 PM EST Office Visit Dermatology [address] [address] Reggie Nevarez PA-C [address] [place] [address] Scheduled Orders Name Type Priority Associated Diagnoses [...] this encounter Medical Devices Implanted Type Area Puppet Developer Device Identifier Shelf Expiration Date Model / Serial / Lot Graft [facility] 2761-60-005 - [id number] Implanted:Qty : 2 on 08/07/2007 [place] [facility] [place]A: Spine Lumbar JAROD & JAROD DEPUY [id number] / / Filter Tulip Hunter Fem [id number] - [id number] Implanted:Qty : 1 on 08/07/2007 [place] [facility] [place] [place] Right: Groin [employer] 05/11/2010 [id number] / / [id number] Graft Healos [facility] 2761-60-010 - [id number] Implanted:Qty : 2 on 08/07/2007 [place] [facility] [place]A: Spine Lumbar JAROD & JAROD DEPUY [id number] / / Screw 5x35 Poly Si [id number] - [id number] Implanted:Qty : 4 on 08/07/2007 [place] [facility] [place]/A: Spine Thoracic JAROD & JAROD DEPUY [id number] / / Screw 6x35 Poly Si [id number] - [id number] Implanted:Qty : 4 on 08/07/2007 [place] [facility] [place]/A: Spine Thoracic JAROD & JAROD DEPUY [id number] / / Hook Blade Wide [id number] - [id number] Implanted:Qty : 2 on 08/07/2007 [place] [facility] [place]/A: Spine Thoracic JAROD [employer] JAROD DEPUY [id number] / / Screw Set Sng Inner [id number] - [id number] Implanted:Qty : 14 on 08/07/2007 [place] [facility] [place]A: Spine Thoracic JAROD [employer] JAROD DEPUY [id number] / / Screw 6x40 Poly Si [id number] - [id number] Implanted:Qty : 3 on 08/07/2007 [place] [facility] [place]/A: Spine Thoracic JAROD [employer] JAROD DEPUY [id number] / / Pb 480mm [id number] - [id number] Implanted:Qty : 1 on 08/07/2007 [place] [facility] [place]/A: Spine Thoracic JAROD [employer] JAROD DEPUY [id number] / / Screw 7x40 Poly Si [id number] - [id number] Implanted:Qty : 2 on 08/07/2007 [place] [facility] [place]/A: Spine Thoracic JAROD [employer] JAROD DEPUY [id number] / / documented as of this encounter [...] Negative Ketone, Urine Negative Negative mg/dL Specific [place], Urine 1.030 1.003 - 1.030 Blood, Urine [...] and were consensually agreed upon. Care Teams Ground Support Equipment Assembler Relationship Specialty Start Date End Date Rigoberto Rodriguez MD [address] [place] [address] PCP - General Family Medicine 03/27/18 documented as of this encounter"
--- OUTSIDE RECORDS SUMMARY | 2024-04-18 00:13 | External Medical Summary | Summary of Care ---
Author Name Unknown Organization [facility] Address [address] [place] [address] Phone [phone] Care Team Providers Care Airport Operations Duty Manager Name Role Phone Siomara Muñiz MD Primary Care Provider +1- [phone] Reason for Visit * Reason Onset Date Comments Medication Refill 03/02/2024 Encounter Details Date Type Department Care Team (Late st Contact Info) Description 03/02/2024 Refill [facility] [address] [place] [address] Siomara Muñiz MD [address] [place] [address] Paraplegia (HCC) Allergies Active Allergy Reactions Criticality Noted Date Comments Penicillins Hives 10/06/2020 Had hives on chest with trial of PCN September 2020 Tolerated ampicillin Tolerated amoxicillin Tolerated ceftriaxone Tolerated cefazolin documented as of this encounter (statuses as of 03/03/2024) Medications BISACODYL 10 MG [place] SUPPIndications: Unspecified site of spinal cord injury without evidence of spinal bone injury,Paraplegi a (HCC),Closed fracture of thoracic vertebra (HCC),Acute constipation 1 Suppository [place] EVERY OTHER DAY 0 0 08/17/19 08 [...] needed (pain). 150 Tablet 03/03/19 25 Active oxyCODONE HCl 5 MG Oral Tablet (Oxy IR)Indications:P araplegia (HCC) Take 1 Tablet by mouth every 4 hours as needed (pain). 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 Increased risk for Rodriguez Syndrome. Gastroesophageal reflux disease 08/18/2019 Spinal cord injury, thoracic region, subsequent encounter 03/24/2019 MEDICATION USE AGREEMENT 01/09/2017 Overview (01/09/2017): Signed 07/01/16 Neurogenic bladder 10/07/2014 Low back pain 11/17/2013 Paraplegia 08/06/2007 Dyslipidemia, goal LDL below 100 documented as of this encounter (statuses as of 03/03/2024) Resolved Problems Problem Noted Date Diagnosed Date [...] as of this encounter (statuses as of 03/03/2024) Immunizations Name Administration Dates Next Due COVID-19 [...] Telephone Encounter - Siomara Muñiz MD - 03/03/2024 4:23 PM ESTSigned Prescriptions: Disp Refills oxyCODONE HCl 5 MG Oral Tablet (Oxy IR) 150 Ta*0 Sig: Take 1 Tablet by mouth every 4 hours as needed (pain).Authorizing Provider: SIOMARA MUÑIZ * Telephone Encounter - Chanda Hernandez [facility] - 03/03/2024 11:49 AM EST Pending Prescriptions: Disp Refills oxyCODONE HCl 5 MG Oral Tablet (Oxy IR) 150 Ta*0 Sig: Take 1 Tablet by mouth every 4 hours as needed (pain). * Telephone Encounter - Chanda Hernandez [facility] - 03/03/2024 11:47 AM EST I have reviewed the patients controlled substance dispensing history in the Prescription Drug Monitoring Program in compliance with the [facility] regulations before prescribing a controlled substance. PDMP checked on 03/03/2024. Pending Prescriptions: Disp Refills oxyCODONE HCl 5 MG Oral Tablet (Oxy IR) 150 Ta*0 Sig: Take 1 Tablet by mouth every 4 hours as needed (pain). Last Visit: Visit date not found (in office), Visit date not found (telemedicine) Next Visit: Visit date not found Date medication was last filled: 02/02/2024 Date medication is due for refill: 02/26/2024 [id number] [address] Is this request for [...] in Results Review. Please approve if appropriate. Thank you, Chanda Hernandez [facility] Clinical Pharmacist [facility] ([facility]) 03/03/24 11:48 AM [phone] documented in this encounter Plan of Treatment Upcoming Encounters Date Type Department Care Team ([facility] st Contact Info) Description 03/10/2024 2:00 PM EST [facility] [address] [phone] Mitch Godoy PA-C [address] [address] 03/15/2024 2:00 PM EST [address] [place] [address] Reggie Nevarez PA-C [address] [place] [address] Scheduled Procedures Name Priority Associated Diagnoses Date/Ti [...] this encounter Medical Devices Implanted Type Area Manufacturing Quality Inspector Device Identifier Shelf Expiration Date Model / Serial / Lot Graft Healos [facility] 2761-60-005 - [id number] Implanted:Qty : 2 on 08/07/2007 [place] [facility] [place]: Spine Lumbar JAROD [employer] JAROD DEPUY [id number] / / Filter Lukasz Lopez [id number] - [id number] Implanted:Qty : 1 on 08/07/2007 [place] [facility] Right: Groin [employer] 05/11/2010 [id number] / / [id number] Graft Healos 10 2761-60-010 - [id number] Implanted:Qty : 2 on 08/07/2007 [place] [facility]/A: Spine Lumbar JAROD [employer] JAROD DEPUY [id number] / / Screw 5x35 Poly Si [id number] - [id number] Implanted:Qty : 4 on 08/07/2007 at [place] [facility] [place] N/A: Spine Thoracic JAROD [employer] JAR[employer] DEPUY [id number] / / Screw 6x35 Poly Si [id number] - [id number] Implanted:Qty : 4 on 08/07/2007 at [place] [facility] [place]/A: Spine Thoracic JAROD [employer] JAROD DEPUY [id number] / / Hook Blade Wide [id number] - [id number] Implanted:Qty : 2 on 08/07/2007 at [place] [facility] [place]/A: Spine Thoracic JAROD [employer] JAROD DEPUY [id number] / / Screw Set Sng Inner [id number] - [id number] Implanted:Qty : 14 on 08/07/2007 at [place] [facility]/A: Spine Thoracic JAROD [employer] JAROD DEPUY [id number] / / Screw 6x40 Poly Si [id number] - [id number] Implanted:Qty : 3 on 08/07/2007 at [place] [facility] [place]/A: Spine Thoracic JAROD [employer] JAR[employer] DE[employer]Y [id number] / / Pb 480mm [id number] - [id number] Implanted:Qty : 1 on 08/07/2007 at [place] [facility] [place] N/A: Spine Thoracic JAROD [employer] JAR[employer] DE[employer]Y [id number] / / Screw 7x40 Poly Si [id number] - [id number] Implanted:Qty : 2 on 08/07/2007 at [place] [facility] [place] N/A: Spine Thoracic JAR[employer] JAR[employer] DEPUY [id number] / / documented as of this encounter [...] and were consensually agreed upon. Care Teams Airport Operations Duty Manager Relationship Specialty Start Date End Date Siomara Muñiz MD PCP - General Family Medicine 03/27/18 documented as of this encounter
--- OUTSIDE RECORDS SUMMARY | 2024-04-18 00:13 | External Medical Summary | Summary of Care ---
Author Name Unknown Organization [facility] Address [address] [place] [address] Phone [phone] Care Team Providers Care Ophthalmic Technician Name Role Phone Rigoberto Rodriguez MD Primary Care Provider +1- [phone] Reason for Visit * Reason Onset Date Comments Nurse Documentation 02/25/2024 Encounter Details Date Type Department Care Team (Late st Contact Info) Description 02/25/2024 Telephone [facility] [address] [facility] [place] [address] Rigoberto Rodriguez MD [address] [place] [address] Nurse Documentation Allergies Active Allergy Reactions Criticality Noted Date Comments Penicillins Hives 10/06/2020 Had hives on chest with trial of PCN September 2020 Tolerated ampicillin Tolerated amoxicillin Tolerated ceftriaxone Tolerated cefazolin documented as of this encounter (statuses as of 02/26/2024) Medications BISACODYL 10 MG [place] SUPPIndications: Unspecified site of spinal cord injury without evidence of spinal bone injury,Paraplegi a (HCC),Closed fracture of thoracic vertebra (HCC),Acute constipation 1 Suppository [place] EVERY OTHER DAY 0 0 8 Active [...] Overview (05/12/2020): pathogenic MSH6 gene variant (c.3261delC, p.[id number]) detected via [employer]. Increased risk for Rodriguez Syndrome. Gastroesophageal reflux [...] encounter Miscellaneous Notes * Telephone Encounter - Karmen Walls LPN - 02/26/2024 2:20 PM EST Last office note sent to [phone] * Telephone Encounter - Cristy Pedroza OSA - 02/25/2024 12:39 PM EST Caller requesting the following information to be faxed: Name/Company of caller: [employer] Information requested to be faxed: Most recent office visit notes Fax number: [phone] Attention to Name/Company: n/a Any additional information?: n/a documented in this encounter Plan of Treatment Upcoming Encounters Date Type Department Care Team ([facility] Contact Info) Description 03/15/2024 2:00 PM EST Office Visit Dermatology [facility] [address] [place] [phone] Reggie Nevarez PA-C [address] [place] [phone] Scheduled Procedures Name Priority Associated Diagnoses Date/Ti [...] this encounter Medical Devices Implanted Type Area Grab Jack Man Device Identifier Shelf Expiration Date Model / Serial / Lot Graft Healos [facility] 2761-60-005 - [id number] Implanted:Qty : 2 on 08/07/2007 at [place] [facility] [place] N/A: Spine Lumbar JAROD & JAROD DEPUY [id number] / / Filter Lukasz Lopez [id number] - [id number] Implanted:Qty : 1 on 08/07/2007 at [place] [facility] [place] Right: Groin [employer] 05/11/2010 [id number] / / [id number] Graft Healos 10 2761-60-010 - [id number] Implanted:Qty : 2 on 08/07/2007 at [place] [facility] [place] N/A: Spine Lumbar JAROD [employer] JAROD DEPUY [id number] / / Screw 5x35 Poly Si [id number] - [id number] Implanted:Qty : 4 on 08/07/2007 at [place] [facility] [place] N/A: Spine Thoracic JAROD [employer] JAR[employer] DE[employer]Y [id number] / / Screw 6x35 Poly Si [id number] - [id number] Implanted:Qty : 4 on 08/07/2007 at [place] [facility] [place] N/A: Spine Thoracic JAR[employer] JAROD DE[employer]Y [id number] / / Hook Blade Wide [id number] - [id number] Implanted:Qty : 2 on 08/07/2007 at [place] [facility] [place] N/A: Spine Thoracic JAROD [employer] JAROD DEPUY [id number] / / Screw Set Sng Inner [id number] - [id number] Implanted:Qty : 14 on 08/07/2007 at [place] [facility] [place] N/A: Spine Thoracic JAR[employer] JAR[employer] DE[employer]Y [id number] / / Screw 6x40 Poly Si [id number] - [id number] Implanted:Qty : 3 on 08/07/2007 at [place] [facility] [place] N/A: Spine Thoracic JAR[employer] JAR[employer] DEPUY [id number] / / Pb 480mm [id number] - [id number] Implanted:Qty : 1 on 08/07/2007 at [place] [facility] [place] N/A: Spine Thoracic JAROD & JAROD DEPUY [id number] / / Screw 7x40 Poly Si [id number] - [id number] Implanted:Qty : 2 on 08/07/2007 at [place] [facility] [place] N/A: Spine Thoracic JARDO & JAROD DEPUY [id number] / / documented as of this encounter [...] and were consensually agreed upon. Care Teams Ophthalmic Technician Relationship Specialty Start Date End Date Rigoberto Rodriguez MD PCP - General Family Medicine 03/27/18 documented as of this encounter
--- OUTSIDE RECORDS SUMMARY | 2024-04-18 00:13 | External Medical Summary ---
Author Name Unknown Address Unknown Organization K01:[facility] [place] - [address] [place] [id number] Laboratory Report Ordering Provider Test Date Status MY WANG 01/07/2024 19:10:06 Final Observation Date Value Abnormality Reference (Units) Status Bacteria identified in Specimen by Culture 01/07/2024 19:10:06 No significant growth Final Test: Culture, Urine, Quant itative
Specimen Source: Urine, Catheter
Specimen Type: Urine
Specimen Date: 01/07/2024 191
Result Date: 01/08/2024 1624
Result Status: Final result
Resulting Lab: [facility]
[address]
[place] [id number]

CULTURE

No significant growth

null Performing Location LAB[facility]ATORY [facility] [place] - [address] [facility] [address]
--- OUTSIDE RECORDS SUMMARY | 2024-04-18 00:13 | External Medical Summary | Summary of Care ---
Author Name Unknown Organization [facility] Address [address] [place] [address] Phone [phone] Care Team Providers Care Pattern Drafter Name Role Phone Siomara Muñiz MD Primary Care Provider +1- [phone] Reason for Visit * Reason Comments eRx-Medication Refill Encounter Details Date Type Department Care Team (Late st Contact Info) Description 01/14/[address] [address] Siomara Muñiz MD [address] [place] [address] Erectile dysfunction due to diseases classified elsewhere Allergies Active Allergy Reactions Criticality Noted Date Comments Penicillins Hives 10/06/2020 Had hives on chest with trial of PCN September 2020 Tolerated ampicillin Tolerated amoxicillin Tolerated ceftriaxone Tolerated cefazolin documented as of this encounter (statuses as of 01/15/2024) Medications BISACODYL 10 MG FL SUPPIndications :Unspecified site of spinal cord injury without evidence of spinal bone injury,Parapleg ia (HCC),Closed fracture of thoracic vertebra (HCC),Acute constipation 1 Suppository FL EVERY OTHER DAY 0 0 08/17/19 08 [...] bedtime. 180 Tablet 3 02/21/19 24 Active Famotidine 20 MG Oral Tablet (Pepcid) TAKE 1 TABLET BY MOUTH TWICE A DAY 60 Tablet 2 10/30/19 24 Active Acyclovir 400 MG Oral Tablet (Zovirax)Indica tions:Herpes simplex virus infection TAKE 1 TABLET BY MOUTH TWICE A DAY 60 Tablet 2 10/30/19 24 Active One-A-Day Mens (Minerals) Oral Tablet [...] INTERCOURSE NEEDED 90 Tablet 01/15/20 24 Active Sildenafil Citrate 20 MG Oral Tablet (Revatio)Indica tions:Erectile dysfunction due to diseases classified elsewhere TAKE 1-5 TABLETS BY MOUTH AT LEAST 1 HOUR PRIOR TO INTERCOURSE NEEDED 90 Tablet 09/22/19 24 024 Discontinued documented as of this encounter (statuses as of 01/15/2024) Active Problems Problem Noted Date Diagnosed Date 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 Increased risk for Rodriguez Syndrome. Gastroesophageal reflux disease 08/18/2019 Spinal cord injury, thoracic region, subsequent encounter 03/24/2019 MEDICATION USE AGREEMENT 01/09/2017 Overview (01/09/2017): Signed 07/01/16 Neurogenic bladder 10/07/2014 Low back pain 11/17/2013 Paraplegia 08/06/2007 Dyslipidemia, goal LDL below 100 documented as of this encounter (statuses as of 01/15/2024) Resolved Problems Problem Noted Date Diagnosed Date [...] as of this encounter (statuses as of 01/15/2024) Immunizations Name Administration Dates Next Due COVID-19 [...] encounter Miscellaneous Notes * Telephone Encounter - Monserrat Arguello [facility] - 01/15/2024 1:56 PM ESTSigned Prescriptions: Disp Refills Sildenafil Citrate 20 MG Oral Tablet ([place]*90 Tab*0 Sig: TAKE 1-5 TABLETS BY MOUTH AT LEAST 1 HOUR PRIOR TO INTERCOURSE NEEDEDAuthorizing Provider: SIOMARA MUÑIZ User: MONSERRAT ARGUELLO * Telephone Encounter - Monserrat Arguello [facility] - 01/15/2024 1:55 PM EST Approved. CMP pending completion. Thank you, Monserrat Arguello, PharmD Clinical Pharmacist Centralized Clinical Pharmacy Services ([facility]PS) 01/15/24 1:55 PM [phone] documented in this encounter Plan of Treatment Upcoming Encounters Date Type Department Care Team ([facility] st Contact Info) Description 03/15/2024 2:00 PM EST Office Visit Dermatology [address] [address] Reggie Nevarez PA-C [address] [place] [address] Scheduled Procedures Name Priority Associated Diagnoses Date/Ti [...] this encounter Medical Devices Implanted Type Area Outside Solar Sales Consultant Device Identifier Shelf Expiration Date Model / Serial / Lot Graft Healos [facility] 2761-60-005 - [id number] Implanted:Qty : 2 on 08/07/2007 at [place] [facility] N/A: Spine Lumbar JAROD & JAROD DEPUY [id number] / / Filter Tulcecilia [place] Fem [id number] - [id number] Implanted:Qty : 1 on 08/07/2007 at [place] [facility] Right: Groin [employer] 05/11/2010 [id number] / / [id number] Graft Healos [facility] 2761-60-010 - [id number] Implanted:Qty : 2 on 08/07/2007 at [place] [facility] N/A: Spine Lumbar JAROD & JAROD DEPUY [id number] / / Screw 5x35 Poly Si [id number] - [id number] Implanted:Qty : 4 on 08/07/2007 at [place] [facility] N/A: Spine Thoracic JAROD & JAROD DEPUY [id number] / / Screw 6x35 Poly Si [id number] - [id number] Implanted:Qty : 4 on 08/07/2007 at [place] [facility] N/A: Spine Thoracic JAROD & JAROD DEPUY [id number] / / Hook Blade Wide [id number] - [id number] Implanted:Qty : 2 on 08/07/2007 at [place] [facility] N/A: Spine Thoracic JAROD & JAROD DEPUY [id number] / / Screw Set Sng Inner [id number] - [id number] Implanted:Qty : 14 on 08/07/2007 at [place] [facility] N/A: Spine Thoracic JAROD & JAROD DEPUY [id number] / / Screw 6x40 Poly Si [id number] - [id number] Implanted:Qty : 3 on 08/07/2007 at [place] [facility] N/A: Spine Thoracic JAROD & JAROD DEPUY [id number] / / Pb 480mm [id number] - [id number] Implanted:Qty : 1 on 08/07/2007 at [place] [facility] N/A: Spine Thoracic JAROD & JAROD DEPUY [id number] / / Screw 7x40 Poly Si [id number] - [id number] Implanted:Qty : 2 on 08/07/2007 at [place] [facility] N/A: Spine Thoracic JAROD & JAROD DEPUY [id number] / / documented as of this encounter [...] and were consensually agreed upon. Care Teams Pattern Drafter Relationship Specialty Start Date End Date Siomara Muñiz MD [address] [place] [facility] [address] PCP - General Family Medicine 03/27/18 documented as of this encounter
--- OUTSIDE RECORDS SUMMARY | 2024-04-18 00:13 | External Medical Summary | Summary of Care ---
Author Name Unknown Organization [facility] Address [address] [place] [facility] [place] [address] Phone [phone] Care Team Providers Care Extension Service Supervisor Name Role Phone Siomara Muñiz MD Primary Care Provider +1- [phone] Reason for Visit * Reason Onset Date Comments Medication Refill 01/29/2024 Encounter Details Date Type Department Care Team (Late st Contact Info) Description 01/29/[address] [facility] [address] [facility] [place] [address] Siomara Muñiz MD [address] [facility] [address] [place] [id number] Paraplegia (HCC) Allergies Active Allergy Reactions Criticality Noted Date Comments Penicillins Hives 10/06/2020 Had hives on chest with trial of PCN September 2020 Tolerated ampicillin Tolerated amoxicillin Tolerated ceftriaxone Tolerated cefazolin documented as of this encounter (statuses as of 02/02/2024) Medications BISACODYL 10 MG MA SUPPIndications: Unspecified site of spinal cord injury without evidence of spinal bone injury,Paraplegi a (HCC),Closed fracture of thoracic vertebra (HCC),Acute constipation 1 Suppository MA EVERY OTHER DAY 0 0 08/17/19 08 [...] Spinal cord injury, thoracic region, subsequent encounter ([facility]),Chronic retention of urine Take 1 Tablet by [...] needed (pain). 150 Tablet 02/02/20 24 Active oxyCODONE HCl 5 MG Oral Tablet (Oxy IR)Indications:P araplegia (HCC) Take 1 Tablet by mouth every 4 hours as needed (pain). 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 Increased risk for Rodriguez Syndrome. Gastroesophageal reflux disease 08/18/2019 Spinal cord injury, thoracic region, subsequent encounter 03/24/2019 MEDICATION USE AGREEMENT 01/09/2017 Overview (01/09/2017): Signed 07/01/16 Neurogenic bladder 10/07/2014 Low back pain 11/17/2013 Paraplegia 08/06/2007 Dyslipidemia, goal LDL below 100 documented as of this encounter (statuses as of 02/02/2024) Resolved Problems Problem Noted Date Diagnosed Date [...] as of this encounter (statuses as of 02/02/2024) Immunizations Name Administration Dates Next Due COVID-19 [...] Telephone Encounter - Siomara Muñiz MD - 02/02/2024 5:11 PM ESTSigned Prescriptions: Disp Refills oxyCODONE HCl 5 MG Oral Tablet (Oxy IR) 150 Ta*0 Sig: Take 1 Tablet by mouth every 4 hours as needed (pain).Authorizing Provider: SIOMARA MUÑIZ * Telephone Encounter - Rody Romero [facility] - 01/30/2024 7:25 PM ESTPending Prescriptions: Disp Refills oxyCODONE HCl 5 MG Oral Tablet (Oxy IR) 150 Ta*0 Sig: Take 1 Tablet by mouth every 4 hours as needed (pain). * Telephone Encounter - Rody Romero [facility] - 01/30/2024 7:23 PM EST I have reviewed the patients controlled substance dispensing history in the Prescription Drug Monitoring Program in compliance with the [facility] regulations before prescribing a controlled substance. PDMP checked on 01/30/2024. Pending Prescriptions: Disp Refills oxyCODONE HCl 5 MG Oral Tablet (Oxy IR) 150 Ta*0 Sig: Take 1 Tablet by mouth every 4 hours as needed (pain). Last Visit: Visit date not found (in office), Visit date not found (telemedicine) Next Visit: Visit date not found Date medication was last filled: 01/01/24 Date medication is due for refill: 01/25/24 Pharmacy: [id number] Is this request for [...] Review. Please approve if appropriate. Thank you, Rody Romero, PharmD Clinical Pharmacist Centralized Clinical Pharmacy Services (CCPS) 01/30/24 7:23 PM [phone] documented in this encounter Plan of Treatment Upcoming Encounters Date Type Department Care Team ([facility] st Contact Info) Description 03/15/2024 2:00 PM EST Office Visit Dermatology [facility] [address] [place] [address] Reggie Nevarez PA-C [address] [place] [address] [place] [address] Scheduled Procedures Name Priority Associated Diagnoses Date/Ti [...] this encounter Medical Devices Implanted Type Area Geospatial Analyst Device Identifier Shelf Expiration Date Model / Serial / Lot Graft Healos [facility] 2761-60-005 - [id number] Implanted:Qty : 2 on 08/07/2007 at [place] [facility] N/A: Spine Lumbar JAROD & JAROD DEPUY [id number] / / Filter Lukasz [place] Fem [id number] - [id number] Implanted:Qty : 1 on 08/07/2007 at [place] [facility] [place] Right: Groin [employer] 05/11/2010 [id number] / / [id number] Graft Healos [facility] 2761-60-010 - [id number] Implanted:Qty : 2 on 08/07/2007 at [place] [facility] [place] N/A: Spine Lumbar JAROD [employer] JAROD DEPUY [id number] / / Screw 5x35 Poly Si [id number] - [id number] Implanted:Qty : 4 on 08/07/2007 at [place] [facility] [place] N/A: Spine Thoracic JAROD [employer] JAROD DEPUY [id number] / / Screw 6x35 Poly Si [id number] - [id number] Implanted:Qty : 4 on 08/07/2007 at [place] [facility] [place] N/A: Spine Thoracic JAROD & JAROD DEPUY [id number] / / Hook Blade Wide [id number] - [id number] Implanted:Qty : 2 on 08/07/2007 at [place] [facility] [place] N/A: Spine Thoracic JAROD & JAROD DEPUY [id number] / / Screw Set Sng Inner [id number] - [id number] Implanted:Qty : 14 on 08/07/2007 at [place] [facility] [place] N/A: Spine Thoracic JAROD & JAROD DEPUY [id number] / / Screw 6x40 Poly Si [id number] - [id number] Implanted:Qty : 3 on 08/07/2007 at [place] [facility] [place] N/A: Spine Thoracic JAROD & JAROD DEPUY [id number] / / Pb 480mm [id number] - [id number] Implanted:Qty : 1 on 08/07/2007 at [place] [facility] [place] N/A: Spine Thoracic JAROD & JAROD DEPUY [id number] / / Screw 7x40 Poly Si [id number] - [id number] Implanted:Qty : 2 on 08/07/2007 at [place] [facility] [place] N/A: Spine Thoracic JAROD & JAROD DEPUY [id number] / / documented as of this encounter [...] and were consensually agreed upon. Care Teams Extension Service Supervisor Relationship Specialty Start Date End Date Siomara Muñiz MD PCP - General Family Medicine 03/27/18 documented as of this encounter
--- OUTSIDE RECORDS SUMMARY | 2024-04-18 00:14 | External Medical Summary | Summary of Care ---
Author Name Unknown Organization [facility] Address [address] [place] [address] Phone [phone] Care Team Providers Care Slitter Service And Setter Name Role Phone Rigoberto Rodriguez MD Primary Care Provider +1- [phone] Reason for Visit * Reason Onset Date Comments Urinary Tract Problem 11/28/2023 Encounter Details Date Type Department Care Team (Late st Contact Info) Description 11/28/2023 Telephone [facility] [address] [place] [address] Cleve Levy MD [address] [place] [address] Urinary Tract Problem Allergies Active Allergy Reactions Criticality Noted Date Comments Penicillins Hives 10/06/2020 Had hives on chest with trial of PCN September 2020 Tolerated ampicillin Tolerated amoxicillin Tolerated ceftriaxone Tolerated cefazolin documented as of this encounter (statuses as of 11/28/2023) Medications Medication Sig Dispensed Refills Start Date End Date Status BISACODYL 10 MG AL SUPPIndications:Uns pecified site of spinal cord injury without evidence of spinal bone injury,Paraplegia (HCC),Closed fracture of thoracic vertebra (HCC),Acute constipation 1 Suppository AL EVERY OTHER DAY 0 0 08/17/2007 Active SELF-CATH STRAIGHT TIPPED CATH MISCIndications:Citlalli sed fracture of T7-T12 level with complete lesion of cord 14french 180 Device 11 10/26/2009 Active VITAMIN C 500 MG PO CHEWIndications:UTI (lower urinary tract infection) 1 TABLET orally 4 times DAILY 120 Tab 11 11/26/2012 Active Ketoconazole 2 % creamIndications:Ti yung corporis Apply topically to affected area twice daily until resolved 15 g 1 02/28/2017 Active Additional Information Patient not taking.Reported on 03/13/2023 Docusate Sodium 100 MG Oral Capsule (Colace)Indications :Spinal cord injury at C5-C7 level without injury of spinal bone (HCC),Paraplegia (HCC),Closed fracture of thoracic vertebra (HCC),Acute constipation TAKE 1 CAPSULE BY MOUTH TWICE A DAY 60 Cap 5 04/09/2020 Active Additional Information Patient not taking.Reported on 03/13/2023 Gabapentin 300 MG Oral Capsule (Neurontin) TAKE 2 CAPSULES BY MOUTH 3 TIMES A DAY 450 Capsule 3 02/21/2023 Active oxyBUTYnin Chloride ER 10 MG Oral Tablet Extended Release 24 HourIndications:Spi nal cord injury, thoracic region, subsequent encounter ([facility]),Chronic retention of urine Take 1 Tablet by mouth in the morning and 1 Tablet before bedtime. 180 Tablet 3 02/21/2023 Active Sildenafil Citrate 20 MG Oral Tablet (Revatio)Indication s:Erectile dysfunction due to diseases classified elsewhere TAKE 1-5 TABLETS BY MOUTH AT LEAST 1 HOUR PRIOR TO INTERCOURSE NEEDED 90 Tablet 09/22/2023 Active Famotidine 20 MG Oral Tablet (Pepcid) TAKE 1 TABLET BY MOUTH TWICE A DAY 60 Tablet 2 10/30/2023 Active Acyclovir 400 MG Oral Tablet (Zovirax)Indication s:Herpes simplex virus infection TAKE 1 TABLET BY MOUTH TWICE A DAY 60 Tablet 2 10/30/2023 Active oxyCODONE HCl 5 MG Oral Tablet (Oxy IR)Indications:Para plegia (HCC) Take 1 Tablet by mouth every 4 hours as needed (pain). 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 Increased risk for Rodriguez Syndrome. Gastroesophageal reflux disease 08/18/2019 Spinal cord injury, thoracic region, subsequent encounter 03/24/2019 MEDICATION USE AGREEMENT 01/09/2017 Overview: Signed 07/01/16 Neurogenic bladder 10/07/2014 Low back pain 11/17/2013 Paraplegia 08/06/2007 Dyslipidemia, goal LDL below 100 documented as of this encounter (statuses as of 11/28/2023) Resolved Problems Problem Noted Date Diagnosed Date Resolved Date Acute cystitis 08/31/2013 11/03/2017 Neurogenic bladder 06/16/2012 5 Obstipation 01/16/2011 11/03/2017 Abdominal pain 01/16/2011 11/03/2017 Hematuria, gross 01/16/2011 11/03/2017 UTI (urinary tract infection) 01/16/2011 11/03/2017 VIRAL GASTROENTERITIS 05/08/20102012 Diarrhea 2010 11/03/2017 Nausea with vomiting 2010 018 L distal Radius Fx 05/10/2008 9 T7-8 Fx/Disl- T8n Paraplegia 03/15/2008 10/07/2014 Overview: S/P ORIF, T4-11 Expedium w PSF- July L distal Radius Fx 03/15/2008 8 Overview: Rx closed- July Neurogenic bladder 01/28/2008 3 Injury, other and unspecifie d, other specified sites, including multiple 08/17/200712/11 Acute constipation 08/13/2007 9 Overview: Resolved per Benign Acute Dxs Protocol Abnormal blood chemistry 08/07/200711/2008 Unspecified site of spinal c ord injury without evidence of spinal bone injury 08/06/2007 1 02/20/2008 Acute cystitis 08/06/2007 12/20/2008 Closed fracture of thoracic vertebra 08/06/2007 03/15/2008 STREP SORE THROAT 08/16/2002 12/20/2008 DYSFUNCT EUSTACHIAN TUBE 08/16/200211/2008 ACUTE PHARYNGITIS 02/09/2001 04/07/2008 Overview: Resolved per Benign Acute Dxs Protocol #3 ACUTE URI NOS 02/09/2001 03/31/2008 Overview: Resolved per Benign Acute Dxs Protocol #3 documented as of this encounter (statuses as of 11/28/2023) Immunizations Name Administration Dates Next Due COVID-19 [...] in the Last Year Never true 08/11/2018 Sex and Gender Information Value Date Recorded Sex Assigned at Male 11/21/2020 3:40 PM EDT Gender Identity Male 11/21/2020 3:40 PM EDT Sexual Orientation Straight 11/21/2020 3: 40 PM EDT Job Start Date Occupation Industry Not on file Not on file Not on file documented as of this encounter Miscellaneous Notes * Telephone Encounter - Cleve Levy MD - 11/28/2023 7:22 AM EDT Pt indicates he thinks he has a UTI. Has hx of recurrent UTI. Will get urine culture. documented in this encounter Plan of Treatment Upcoming Encounters Date Type Department Care Team ([facility] Contact Info) Description 03/15/2024 2:00 PM EST Office Visit Dermatology [address] [phone] Reggie Nevarez PA-C [address] [place] [address] [place] [id number] Scheduled Orders Name Type Priority Associated Diagnoses Orde r Schedule CULTURE, URINE, QUANTITATIVE Lab Routine Paraplegia (HCC) Expected: 11/28/2023, Expires: 11/27/2024 Scheduled Procedures Name Priority Associated Diagnoses Date/Ti me COLONOSCOPY FLEXIBLE PROXIMA L DIAGNOSTIC Recall Special screening for malignant neoplasms, colon Health Maintenance Due Date Last Done Comments HIV Screening 1989 Hepatitis C Screening 1992 Hepatitis B Vaccine (1 of 3 - 19+ 3-dose series) 1993 Lipid Panel 01/17/2016 01/16/2011, 01/16/2011 Cologuard 05/09/2019 Fecal Occult Blood Test 05/09/2019 Sigmoidoscopy 05/09/2019 Depression Screening 10/24/2020 10/25/2019 COVID-19 Vaccine (3 - 2023-2 5 season) 2023 06/26/2020, 06/05/2020 Influenza Vaccine (FLU shot) (#1) 2023 11/21/2020, 10/25/2019, 11/30/2007 DTap/Tdap Vaccines (3 - Td o r Tdap) 07/21/2028 07/21/2018, 11/30/2007 Colonoscopy 07/19/2030 07/19/2020, 07/19/2020 Colorectal Cancer Screening 07/19/2030 HPV (Gardasil) Vaccine Aged Out No lo nger eligible based on patient's age to complete this topic MENINGOCOCCAL (MENACTRA/MENVEO) Aged Out No longer eligible b ased on patient's age to complete this topic Pneumococcal Vaccine: Pediatrics (0 to 5 Years) and At-Risk Patients (6 to 64 Years) Aged Out No longer eligible b ased on patient's age to complete this topic documented as of this encounter Medical Devices Implanted Type Area Spline Rolling Machine Job Setter Device Identifier Shelf Expiration Date Model / Serial / Lot Graft Healos 5cc 2761-60-005 - [id number] Implanted:Qty : 2 on 08/07/2007 at [place] [facility] N/A: Spine Lumbar JAROD [employer] JAROD DEPUY [id number] / / Filter Tulip Gunth Fem [id number] - [id number] Implanted:Qty : 1 on 08/07/2007 at [place] [facility] Right: [employer] 05/11/2010 [id number] / / [id number] Graft Healos [facility] 2761-60-010 - [id number] Implanted:Qty : 2 on 08/07/2007 at [place] [facility] N/A: Spine Lumbar JAROD & JAROD DEPUY [id number] / / Screw 5x35 Poly Si [id number] - [id number] Implanted:Qty : 4 on 08/07/2007 at [place] [facility] N/A: Spine Thoracic JAROD & JAROD DEPUY [id number] / / Screw 6x35 Poly Si [id number] - [id number] Implanted:Qty : 4 on 08/07/2007 at [place] [facility] N/A: Spine Thoracic JAROD & JAROD DEPUY [id number] / / Hook Blade Wide [id number] - [id number] Implanted:Qty : 2 on 08/07/2007 at [place] [facility] N/A: Spine Thoracic JAROD & JAROD DEPUY [id number] / / Screw Set Sng Inner [id number] - [id number] Implanted:Qty : 14 on 08/07/2007 at [place] [facility] N/A: Spine Thoracic JAROD [employer] JAROD DEPUY [id number] / / Screw 6x40 Poly Si [id number] - [id number] Implanted:Qty : 3 on 08/07/2007 at [place] [facility] N/A: Spine Thoracic JAROD & JAROD DEPUY [id number] / / Pb 480mm [id number] - [id number] Implanted:Qty : 1 on 08/07/2007 at [place] [facility] N/A: Spine Thoracic JAROD & JAROD DEPUY [id number] / / Screw 7x40 Poly Si [id number] - [id number] Implanted:Qty : 2 on 08/07/2007 at [place] [facility] N/A: Spine Thoracic JAROD & JAROD DEPUY [id number] / / documented as of this encounter Visit Diagnoses Diagnosis Paraplegia (HCC)- Primary Paraplegia documented in this encounter Advance Directives [...] and were consensually agreed upon. Care Teams Slitter Service And Setter Relationship Specialty Start Date End Date Rigoberto Rodriguez MD [address] [place] [address] PCP - General Family Medicine 03/27/18 documented as of this encounter
--- OUTSIDE RECORDS SUMMARY | 2024-04-18 00:14 | External Medical Summary | Summary of Care ---
Author Name Unknown Organization [facility] Address [address] [place] [address] Phone [phone] Care Team Providers Care Music Education Director Name Role Phone Siomara Muñiz MD Primary Care Provider +1- [phone] Reason for Visit * Reason Onset Date Comments Medication Refill 12/30/2023 Encounter Details Date Type Department Care Team (Late st Contact Info) Description 12/30/2023 Refill [facility] [address] [place] [address] Siomara Muñiz MD [address] [place] [address] Paraplegia (HCC) Allergies Active Allergy Reactions Criticality Noted Date Comments Penicillins Hives 10/06/2020 Had hives on chest with trial of PCN September 2020 Tolerated ampicillin Tolerated amoxicillin Tolerated ceftriaxone Tolerated cefazolin documented as of this encounter (statuses as of 01/01/2024) Medications BISACODYL 10 MG MD SUPPIndications: Unspecified site of spinal cord injury without evidence of spinal bone injury,Paraplegi a (HCC),Closed fracture of thoracic vertebra (HCC),Acute constipation 1 Suppository MD EVERY OTHER DAY 0 0 08/17/19 08 [...] 3 TIMES A DAY 450 Capsule 3 02/21/19 24 Active oxyBUTYnin Chloride ER 10 MG Oral Tablet Extended Release 24 HourIndications: Spinal cord injury, thoracic region, subsequent encounter (HCC),Chronic retention of urine Take 1 Tablet by mouth in the morning and 1 Tablet before bedtime. 180 Tablet 3 02/21/19 24 Active Sildenafil Citrate 20 MG Oral Tablet (Revatio)Indicat ions:Erectile dysfunction due to diseases classified elsewhere TAKE 1-5 TABLETS BY MOUTH AT LEAST 1 HOUR PRIOR TO INTERCOURSE NEEDED 90 Tablet 09/22/19 24 Active Famotidine 20 MG Oral Tablet [...] needed (pain). 150 Tablet 01/01/20 24 Active oxyCODONE HCl 5 MG Oral Tablet (Oxy IR)Indications:P araplegia (HCC) Take 1 Tablet by mouth every 4 hours as needed (pain). 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 Increased risk for Rodriguez Syndrome. Gastroesophageal reflux disease 08/18/2019 Spinal cord injury, thoracic region, subsequent encounter 03/24/2019 MEDICATION USE AGREEMENT 01/09/2017 Overview (01/09/2017): Signed 07/01/16 Neurogenic bladder 10/07/2014 Low back pain 11/17/2013 Paraplegia 08/06/2007 Dyslipidemia, goal LDL below 100 documented as of this encounter (statuses as of 01/01/2024) Resolved Problems Problem Noted Date Diagnosed Date [...] as of this encounter (statuses as of 01/01/2024) Immunizations Name Administration Dates Next Due COVID-19 mRNA, LNP-s, No Pre serve, 2-Dose Series ([employer]) 06/26/2020,06/05/2020 PPD 10/26/2021 Seasonal Influenza Vac., MDV, [...] the Last Year Never true 08/11/2018 Comments Unknown Sex and Gender Information Value Date Recorded [...] Telephone Encounter - Siomara Muñiz MD - 01/01/2024 5:09 PM ESTSigned Prescriptions: Disp Refills oxyCODONE HCl 5 MG Oral Tablet (Oxy IR) 150 Ta*0 Sig: Take 1 Tablet by mouth every 4 hours as needed (pain).Authorizing Provider: SIOMARA MUÑIZ * Telephone Encounter - Terrence Ochoa, [facility] - 01/01/2024 8:42 AM EST Pending Prescriptions: Disp Refills oxyCODONE HCl 5 MG Oral Tablet (Oxy IR) 150 Ta*0 Sig: Take 1 Tablet by mouth every 4 hours as needed (pain). * Telephone Encounter - Terrence Ochoa [facility] - 01/01/2024 8:41 AM EST I have reviewed the patients controlled substance dispensing history in the Prescription Drug Monitoring Program in compliance with the [facility] regulations before prescribing a controlled substance. PDMP checked on 01/01/2024. Pending Prescriptions: Disp Refills oxyCODONE HCl 5 MG Oral Tablet (Oxy IR) 150 Ta*0 Sig: Take 1 Tablet by mouth every 4 hours as needed (pain). Last Visit: 02/21/2023 (in office), Visit date not found (telemedicine) Next Visit: Visit date not found Date medication was last filled: 12/01/2023 Date medication is due for refill: 12/25/2023 Pharmacy: [id number] [place] Is this request for [...] Results Review. Please approve if appropriate. Thank You, Terrence Ochoa, Pharm-D Clinical Pharmacist [facility] ([facility]) [phone] 01/01/2024, 8:41 AM documented in this encounter Plan of Treatment Upcoming Encounters Date Type Department Care Team ([facility] Contact Info) Description 03/15/2024 2:00 PM EST Office Visit Dermatology [facility] [address] [place] [address] Reggie Nevarez PA-C [address] [place] [address] [place] [address] Scheduled Procedures Name Priority Associated Diagnoses Date/Ti [...] this encounter Medical Devices Implanted Type Area Computer Support Analyst Device Identifier Shelf Expiration Date Model / Serial / Lot Graft Healos [facility] 2761-60-005 - [id number] Implanted:Qty : 2 on 08/07/2007 at [place] [facility] [place] N/A: Spine Lumbar JAROD & JAROD DEPUY [id number] / / Filter Lukasz Harrison Fem [id number] - [id number] Implanted:Qty : 1 on 08/07/2007 at [place] [facility] [place] Right: Groin [employer] 05/11/2010 [id number] / / [id number] Graft Healos [facility] 2761-60-010 - [id number] Implanted:Qty : 2 on 08/07/2007 at OR [facility] [place] N/A: Spine Lumbar JAROD & JAROD DEPUY [id number] / / Screw 5x35 Poly Si [id number] - [id number] Implanted:Qty : 4 on 08/07/2007 at OR [facility] [place] N/A: Spine Thoracic JAROD & JAROD DEPUY [id number] / / Screw 6x35 Poly Si [id number] - [id number] Implanted:Qty : 4 on 08/07/2007 at OR [facility] [place] N/A: Spine Thoracic JAROD & JAROD DEPUY [id number] / / Hook Blade Wide [id number] - [id number] Implanted:Qty : 2 on 08/07/2007 at OR [facility] [place] N/A: Spine Thoracic JAROD & JAROD DEPUY [id number] / / Screw Set Sng Inner [id number] - [id number] Implanted:Qty : 14 on 08/07/2007 at OR [facility] [place] N/A: Spine Thoracic JAROD & JAROD DEPUY [id number] / / Screw 6x40 Poly Si [id number] - [id number] Implanted:Qty : 3 on 08/07/2007 at OR [facility] [place] N/A: Spine Thoracic JAROD & JAROD DEPUY [id number] / / Pb 480mm [id number] - [id number] Implanted:Qty : 1 on 08/07/2007 at OR [facility] [place] N/A: Spine Thoracic JAROD & JAROD DEPUY [id number] / / Screw 7x40 Poly Si [id number] - [id number] Implanted:Qty : 2 on 08/07/2007 at OR [facility] [place] N/A: Spine Thoracic JAROD & JAROD DEPUY [id number] / / documented as of this encounter [...] and were consensually agreed upon. Care Teams Music Education Director Relationship Specialty Start Date End Date Siomara Muñiz MD [address] [place] [address] PCP - General Family Medicine 03/27/18 documented as of this encounter
--- OUTSIDE RECORDS SUMMARY | 2024-04-18 00:14 | External Medical Summary | Summary of Care ---
Author Name Unknown Organization [facility] Address [address] [place] [address] Phone [phone] Care Team Providers Care Surveyor Chain Helper Name Role Phone Rigoberto Rodriguez MD Primary Care Provider +1- [phone] Encounter Details Date Type Department Care Team (Late st Contact Info) Description 12/02/[address] [facility] [address] [place] [address] Rigoberto Rodriguez MD [address] [place] [address] Allergies Active Allergy Reactions Criticality Noted Date Comments Penicillins Hives 10/06/2020 Had hives on chest with trial of PCN September 2020 Tolerated ampicillin Tolerated amoxicillin Tolerated ceftriaxone Tolerated cefazolin documented as of this encounter (statuses as of 12/02/2023) Medications Medication Sig Dispensed Refills Start Date End Date Status BISACODYL 10 MG CO SUPPIndications:Un specified site of spinal cord injury without evidence of spinal bone injury,Paraplegia (HCC),Closed fracture of thoracic vertebra (HCC),Acute constipation 1 Suppository CO EVERY OTHER DAY 0 0 08/17/2007 Active SELF-CATH STRAIGHT TIPPED CATH MISCIndications:Cl osed fracture of T7-T12 level with complete lesion of cord 14french 180 Device 11 10/26/2009 Active VITAMIN C 500 MG PO CHEWIndications:UT I (lower urinary tract infection) 1 TABLET orally 4 times DAILY 120 Tab 11 11/26/2012 Active Ketoconazole 2 % creamIndications:T inea corporis Apply topically to affected area twice daily until resolved 15 g 1 02/28/2017 Active Additional Information Patient not taking.Reported on 03/13/2023 Docusate Sodium 100 MG Oral Capsule (Colace)Indication s:Spinal cord injury at C5-C7 level without injury of spinal bone (HCC),Paraplegia ([facility]),Closed fracture of thoracic vertebra ([facility]),Acute constipation TAKE 1 CAPSULE BY MOUTH TWICE A DAY 60 Cap 5 04/09/2020 Active Additional Information Patient not taking.Reported on 03/13/2023 Gabapentin 300 MG Oral Capsule (Neurontin) TAKE 2 CAPSULES BY MOUTH 3 TIMES A DAY 450 Capsule 3 02/21/2023 Active oxyBUTYnin Chloride ER 10 MG Oral Tablet Extended Release 24 HourIndications:Sp inal cord injury, thoracic region, subsequent encounter ([facility]),Chronic retention of urine Take 1 Tablet by mouth in the morning and 1 Tablet before bedtime. 180 Tablet 3 02/21/2023 Active Sildenafil Citrate 20 MG Oral Tablet (Revatio)Indicatio ns:Erectile dysfunction due to diseases classified elsewhere TAKE 1-5 TABLETS BY MOUTH AT LEAST 1 HOUR PRIOR TO INTERCOURSE NEEDED 90 Tablet 09/22/2023 Active Famotidine 20 MG Oral Tablet (Pepcid) TAKE 1 TABLET BY MOUTH TWICE A DAY 60 Tablet 2 10/30/2023 Active Acyclovir 400 MG Oral Tablet (Zovirax)Indicatio ns:Herpes simplex virus infection TAKE 1 TABLET BY MOUTH TWICE A DAY 60 Tablet 2 10/30/2023 Active oxyCODONE HCl 5 MG Oral Tablet (Oxy IR)Indications:Par aplegia ([facility]) Take 1 Tablet by mouth every 4 hours as needed (pain). 150 Tablet 12/01/2023 Active Nitrofurantoin Monohyd Macro 100 MG Oral Capsule (Macrobid)Indicati ons:Urinary tract infection without hematuria, site unspecified Take 1 Capsule by mouth in the morning and 1 Capsule before bedtime. Do all this for 7 days. With food until gone. 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 Increased risk for Rodriguez Syndrome. Gastroesophageal reflux disease 08/18/2019 Spinal cord injury, thoracic region, subsequent encounter 03/24/2019 MEDICATION USE AGREEMENT 01/09/2017 Overview: Signed 07/01/16 Neurogenic bladder 10/07/2014 Low back pain 11/17/2013 Paraplegia 08/06/2007 Dyslipidemia, goal LDL below 100 documented as of this encounter (statuses as of 12/02/2023) Resolved Problems Problem Noted Date Diagnosed Date [...] as of this encounter (statuses as of 12/02/2023) Immunizations Name Administration Dates Next Due COVID-19 [...] encounter Miscellaneous Notes * Telephone Encounter - Rigoberto Rodriguez MD - 12/02/2023 8:54 PM EDT . documented in this encounter Plan of Treatment Upcoming Encounters Date Type Department Care Team ([facility] Contact Info) Description 03/15/2024 2:00 PM EST Office Visit Dermatology [facility] [address] [place] [address] Reggie Nevarez PA-C [address] [place], [place] [address] [address] Scheduled Procedures Name Priority Associated Diagnoses Date/Ti [...] this encounter Medical Devices Implanted Type Area Vp Publisher Development Device Identifier Shelf Expiration Date Model / Serial / Lot Graft Healos 5cc 2761-60-005 - [id number] Implanted:Qty : 2 on [place]/07/[place] [facility] [place]: Spine Lumbar JAROD & JAROD DEPUY [id number] / / Filter Tulip Gunth Fem [id number] - [id number] Implanted:Qty : 1 on 08/07/2007 [place] [facility] [place] Right: Quynh [employer] 05/11/2010 [id number] / / [id number] Graft Healos [facility] 2761-60-010 - [id number] Implanted:Qty : 2 on 08/07/2007 [place] [facility] [place]/A: Spine Lumbar JAROD & JAROD DEPUY [id number] / / Screw 5x35 Poly Si [id number] - [id number] Implanted:Qty : 4 on 08/07/2007 [place] [facility] [place]/A: Spine Thoracic JAROD & JAROD DEPUY [id number] / / Screw 6x35 Poly Si [id number] - [id number] Implanted:Qty : 4 on 08/07/2007 [place] [facility] [place]/A: Spine Thoracic JAROD & JAROD DEPUY [id number] / / Hook Blade Wide [id number] - [id number] Implanted:Qty : 2 on 08/07/2007 [place] [facility] [place]/A: Spine Thoracic JAROD & JAROD DEPUY [id number] / / Screw Set Sng Inner [id number] - [id number] Implanted:Qty : 14 on 08/07/2007 [place] [facility] [place]/A: Spine Thoracic JAROD & JAROD DEPUY [id number] / / Screw 6x40 Poly Si [id number] - [id number] Implanted:Qty : 3 on 08/07/2007 [place] [facility] [place]/A: Spine Thoracic JAROD & JAROD DEPUY [id number] / / Pb 480mm [id number] - [id number] Implanted:Qty : 1 on 08/07/2007 [place] [facility] [place] N/A: Spine Thoracic JAROD & JAROD DEPUY [id number] / / Screw 7x40 Poly Si [id number] - [id number] Implanted:Qty : 2 on 08/07/2007 [place] [facility] [place]/A: Spine Thoracic JAROD & JAROD DEPUY [id number] / / documented as of this encounter Visit Diagnoses Diagnosis Urinary tract infection without hematuria, site unspecified- Primary documented in this encounter Advance Directives * [...] and were consensually agreed upon. Care Teams Surveyor Chain Helper Relationship Specialty Start Date End Date Rigoberto Rodriguez MD [address] [place] [address] PCP - General Family Medicine 03/27/18 documented as of this encounter
--- OUTSIDE RECORDS SUMMARY | 2024-04-18 00:14 | External Medical Summary ---
Author Name Unknown Address Unknown Organization [facility] [address] [place] [address] Laboratory Report Ordering Provider Test Date Status DOMO CARCAMO 12/25/2023 15:23:00 Final Observation Date Value Abnormality Reference (Units ) Status Color of Urine by Auto 12/25/2023 15:23:00 Yellow Light Yellow, Yellow Final Clarity, Urine 12/25/2023 15:23:00 Clear Clear Final Glucose [Mass/volume] in Urine by Automated test strip 12/25/2023 15:23:00 Negative Negative (mg/dL) Final Bilirubin.total [Presence] in Urine by Automated test strip 12/25/2023 15:23:00 Small Abnormal Negative Final Ketones [Mass/volume] in Urine by Automated test strip 12/25/2023 15:23:00 15 Abnormal Negative (mg/dL) Final Specific gravity, Urine 12/25/2023 15:23:00 >=1.030 1.003-1.030 Final Hemoglobin [Presence] in Urine by Automated test strip 12/25/2023 15:23:00 Negative Negative Final pH, Urine 12/25/2023 15:23:00 5.5 5.0, 5.5, 6.0, 6.5, 7.0, 7.5 (units) Final Protein [Mass/volume] in Urine by Automated test strip 12/25/2023 15:23:00 Trace Abnormal Negative (mg/dL) Final Urobilinogen, Urine 12/25/2023 15:23:00 1.0 0.2, 1.0 (mg/dL) Final Nitrite [Presence] in Urine by Automated test strip 12/25/2023 15:23:00 Negative Negative Final Leukocyte esterase [Presence] in Urine by Automated test strip 12/25/2023 15:23:00 Negative Negative Final [facility]forming Location [facility] [place] [address]
--- OUTSIDE RECORDS SUMMARY | 2024-04-18 00:14 | External Medical Summary | Summary of Care ---
Author Name Unknown Organization [facility] Address [address] [place] [address] Phone [phone] Care Team Providers Care Rotor Blade Installer Name Role Phone Rigoberto Rodriguez MD Primary Care Provider +1- [phone] Reason for Visit * Reason Comments eRx-Medication Refill Encounter Details Date Type Department Care Team (Late st Contact Info) Description 01/02/[address] [address] Daksha Lincoln PA-C [address] [facility] [place] [address] Allergies Active Allergy Reactions Criticality Noted Date Comments Penicillins Hives 10/06/2020 Had hives on chest with trial of PCN September 2020 Tolerated ampicillin Tolerated amoxicillin Tolerated ceftriaxone Tolerated cefazolin documented as of this encounter (statuses as of 01/06/2024) Medications BISACODYL 10 MG [place] SUPPIndications :Unspecified site of spinal cord injury without evidence of spinal bone injury,Parapleg ia (HCC),Closed fracture of thoracic vertebra (HCC),Acute constipation 1 Suppository [place] EVERY OTHER DAY 0 0 08/17/19 08 [...] DAY 450 Capsule 3 01/06/20 24 Active Gabapentin 300 MG Oral Capsule (Neurontin) TAKE 2 CAPSULES BY MOUTH 3 TIMES A DAY 450 Capsule 3 02/21/19 24 024 Discontinued documented as of this encounter (statuses as of 01/06/2024) Active Problems Problem Noted Date Diagnosed Date 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 Increased risk for Rodriguez Syndrome. Gastroesophageal reflux disease 08/18/2019 Spinal cord injury, thoracic region, subsequent encounter 03/24/2019 MEDICATION USE AGREEMENT 01/09/2017 Overview (01/09/2017): Signed 07/01/16 Neurogenic bladder 10/07/2014 Low back pain 11/17/2013 Paraplegia 08/06/2007 Dyslipidemia, goal LDL below 100 documented as of this encounter (statuses as of 01/06/2024) Resolved Problems Problem Noted Date Diagnosed Date [...] as of this encounter (statuses as of 01/06/2024) Immunizations Name Administration Dates Next Due COVID-19 mRNA, LNP-s, No Pre serve, 2-Dose Series ([employer]) 06/26/2020,06/05/2020 PPD 10/26/2021 Seasonal Influenza Vac., MDV, [...] encounter Miscellaneous Notes * Telephone Encounter - Daksha Lincoln PA-C - 01/06/2024 4:23 PM ESTSigned Prescriptions: Disp Refills Gabapentin 300 MG Oral Capsule (Neurontin) 450 Ca*3 Sig: TAKE 2 CAPSULES BY MOUTH 3 TIMES A DAY Authorizing Provider: DAKSHA LINCOLN * Telephone Encounter - Adele Xavier LPN - 01/06/2024 3:32 PM ESTPending Prescriptions: Disp Refills Gabapentin 300 MG Oral Capsule [Pharmacy M*450 Ca*3 Sig: TAKE 2 CAPSULES BY MOUTH 3 TIMES A DAY * Telephone Encounter - Carrol Tian - 01/02/2024 7:15 PM ESTPending Prescriptions: Disp Refills Gabapentin 300 MG Oral Capsule [Pharmacy M*450 Ca*3 Sig: TAKE 2CAPSULES BY MOUTH 3 TIMES A DAY documented in this encounter Plan of Treatment Upcoming Encounters Date Type Department Care Team ([facility] Contact Info) Description 03/15/2024 2:00 PM EST Office Visit Dermatology [facility] [place] [address] Reggie Nevarez PA-C [address] [place] [address] Scheduled Procedures Name Priority Associated Diagnoses Date/Ti [...] this encounter Medical Devices Implanted Type Area Splitter Hand Device Identifier Shelf Expiration Date Model / Serial / Lot Graft Healos [facility] 2761-60-005 - [id number] Implanted:Qty : 2 on 08/07/2007 [place] [facility] [place]A: Spine Lumbar JAROD & JAROD DEPUY [id number] / / Filter Tulip Hunter Fem [id number] - [id number] Implanted:Qty : 1 on 08/07/2007 at [place] [facility] [place] Right: Groin [employer] 05/11/2010 [id number] / / [id number] Graft Healos 10 2761-60-010 - [id number] Implanted:Qty : 2 on 08/07/2007 at [place] [facility] [place] N/A: Spine Lumbar JAROD & JAROD DEPUY [id number] / / Screw 5x35 Poly Si [id number] - [id number] Implanted:Qty : 4 on 08/07/2007 at [place] [facility] [place] N/A: Spine Thoracic JAROD & JAROD DEPUY [id number] / / Screw 6x35 Poly Si [id number] - [id number] Implanted:Qty : 4 on 08/07/2007 at [place] [facility] [place] N/A: Spine Thoracic JAROD & JAROD DEPUY [id number] / / Hook Blade Wide [id number] - [id number] Implanted:Qty : 2 on 08/07/2007 at [place] [facility] [place] N/A: Spine Thoracic JAROD & JAROD DEPUY [id number] / / Screw Set Sng Inner [id number] - [id number] Implanted:Qty : 14 on 08/07/2007 at [place] [facility] [place] N/A: Spine Thoracic JAROD & JAROD DEPUY [id number] / / Screw 6x40 Poly Si [id number] - [id number] Implanted:Qty : 3 on 08/07/2007 at [place] [facility] [place] N/A: Spine Thoracic JAROD & JAROD DEPUY [id number] / / Pb 480mm [id number] - [id number] Implanted:Qty : 1 on 08/07/2007 at [place] [facility] [place] N/A: Spine Thoracic JAROD & JAROD DEPUY [id number] / / Screw 7x40 Poly Si [id number] - [id number] Implanted:Qty : 2 on 08/07/2007 at [place] [facility] [place] N/A: Spine Thoracic JAROD & JAROD DEPUY [id number] / / documented as of this encounter [...] and were consensually agreed upon. Care Teams Rotor Blade Installer Relationship Specialty Start Date End Date Rigoberto Rodriguez MD [address] [place] [facility] [place] [address] PCP - General Family Medicine 03/27/18 documented as of this encounter
--- OUTSIDE RECORDS SUMMARY | 2024-04-18 00:14 | External Medical Summary | Summary of Care ---
Author Name Unknown Organization [facility] Address [address] [facility] [address] Phone [phone] Care Team Providers Care Bedspread Cutter Hand Name Role Phone Rigoberto Rodriguez MD Primary Care Provider +1- [phone] Reason for Visit * Reason Comments Urinary Tract Infection Symptoms Pt here for c/o b/l flank pain and incontinence. Pt believes he may have another UTI. Ear Problem Pt reports having le ft feels clogged. Encounter Details Date Type Department Care Team (Late st Contact Info) Description 12/25/2023 3:00 PM EST Office Visit Family Practice [facility] [address] [facility] [place] [address] Salvador Arreola MD [address] [place] [address] Enterococcus UTI*; UTI symptoms; Paraplegia (HCC); Impacted cerumen of left ear Allergies Active Allergy Reactions Criticality Noted Date Comments Penicillins Hives 10/06/2020 Had hives on chest with trial of PCN September 2020 Tolerated ampicillin Tolerated amoxicillin Tolerated ceftriaxone Tolerated cefazolin documented as of this encounter (statuses as of 12/25/2023) Medications BISACODYL 10 MG TN SUPPIndications: Unspecified site of spinal cord injury without evidence of spinal bone injury,Paraplegi a (HCC),Closed fracture of thoracic vertebra (HCC),Acute constipation 1 Suppository TN EVERY OTHER DAY 0 0 08/17/19 08 [...] DAY 60 Tablet 2 10/30/19 24 Active oxyCODONE HCl 5 MG Oral Tablet (Oxy IR)Indications:P araplegia (HCC) Take 1 Tablet by mouth every 4 hours as needed (pain). 150 Tablet 12/01/19 24 Active One-A-Day Mens (Minerals) Oral Tablet [...] 30 minutes.. 15 mL 12/25/19 24 Active VITAMIN C 500 MG PO CHEWIndications: UTI (lower urinary tract infection) 1 TABLET orally 4 times DAILY 120 Tab 11 11/27/19 13 024 Discontin ued(Medic ation List Clean Up) Docusate Sodium 100 MG Oral Capsule (Colace)Indicati ons:Spinal cord injury at C5-C7 level without injury of spinal bone (HCC),Paraplegia (HCC),Closed fracture of thoracic vertebra (HCC),Acute constipation TAKE 1 CAPSULE BY MOUTH TWICE A DAY 60 Cap 5 04/09/19 21 024 Discontin ued(Medic ation List Clean Up) documented as of this encounter (statuses as of 12/25/2023) Active Problems Problem Noted Date Diagnosed Date 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 Increased risk for Rodriguez Syndrome. Gastroesophageal reflux disease 08/18/2019 Spinal cord injury, thoracic region, subsequent encounter 03/24/2019 MEDICATION USE AGREEMENT 01/09/2017 Overview (01/09/2017): Signed 07/01/16 Neurogenic bladder 10/07/2014 Low back pain 11/17/2013 Paraplegia 08/06/2007 Dyslipidemia, goal LDL below 100 documented as of this encounter (statuses as of 12/25/2023) Resolved Problems Problem Noted Date Diagnosed Date [...] as of this encounter (statuses as of 12/25/2023) Immunizations Name Administration Dates Next Due COVID-19 mRNA, LNP-s, No Pre serve, 2-Dose Series ([employer]) 06/26/2020,06/05/2020 PPD 10/26/2021 Seasonal Influenza Vac., MDV, [...] Sign Reading Time Taken Comments Blood Pressure 128/62 12/25/2023 3:13 PM EST Pulse 84 12/25/2023 3:13 PM EST Temperature 36.4 C (97.5 F) 12/25/2023 3:13 PM ES T Respiratory Rate 16 12/25/2023 3:13 PM EST Oxygen Saturation 98% 12/25/2023 3:13 PM EST Inhaled Oxygen Concentration - - Weight - - Height - - Body Mass Index - - documented in this encounter Progress Notes * Salvador Arreola MD - 12/25/2023 3:33 PM EST Images from the original note were not included. History of Present Illness Matt Almaraz is a 48 year old adult that presents for Urinary Tract Infection Symptoms (Pt here for c/o b/l flank pain and incontinence. Pt believes he may have another UTI.) and Ear Problem (Pt reports having left feels clogged. ) Patient recently had a UTI about a month ago and cultured + for enterococcus. HE was treated with macrobid BID for 7 days and sx started to come back a short while after he completed his course. He self caths multiple times a day. He has paraplegia from T8 down. Physical Exam BP 128/62 (BP Site: Left Arm, BP Position: Sitting, BP Cuff Size: Regular) | Pulse 84 | Temp 36.4 C (97.5 F) (Tympanic) | Resp 16 | SpO2 98% NAD Non ill appearing + wax left ear cancel Patient is wheelchair bound from T8 paraplegia I have reviewed most recent labs Urine Culture and Urinalysis, POC Assessment and Plan Enterococcus UTI - reviewed recent urine culture. This is not a case of uncomplicated UTI and SHOULD NOT be treated with macrobid despite sensitivity data. He has a listed allergy to PCN but has tolerated amoxicillinin the past and his allergy is from childhood when he got hives and therefore not a likely true allergy. This is not an anaphylactic reaction. Will give course ampicillin QID for a week. He will callwith issues. Urine will be sent for culture. UTI symptoms - recurrent - URINALYSIS, POINT OF CARE - CULTURE, URINE, QUANTITATIVE; Future Paraplegia (HCC) - underlying and contributes to medical complexity and MDM. Wrap-Up Abx as above Debrox drops left ear prn Time: I spent a total of 30-39 minutes (exact time 32 mins) on the date of service in preparation, delivery, and documentation of the care provided to Matt Almaraz excluding any time spent in the performance of separately billed services. documented in this encounter Plan of Treatment Upcoming Encounters Date Type Department Care Team ([facility] st Contact Info) Description 03/15/2024 2:00 PM EST Office Visit Dermatology [address] [phone] Reggie Nevarez PA-C [address] [place] [phone] Pending Results Name Type Priority Associated Diagnoses Date /Time CULTURE, URINE, QUANTITATIVE Lab Routine UTI symptoms 12/25/2023 3:51 PM EST Scheduled Orders Name Type Priority Associated Diagnoses Orde r Schedule CULTURE, URINE, QUANTITATIVE Lab Routine UTI symptoms Expected: 12/25/2023, Expires: 12/24/2024 Scheduled Procedures Name Priority Associated Diagnoses Date/Ti [...] this encounter Medical Devices Implanted Type Area Finishing Frame Runner Device Identifier Shelf Expiration Date Model / Serial / Lot Graft Healos [facility] 2761-60-005 - [id number] Implanted:Qty : 2 on 08/07/2007 at [place] [facility] [place] N/A: Spine Lumbar JAROD [employer] JAROD DEPUY [id number] / / Filter Tulcecilia Harrison Fem [id number] - [id number] Implanted:Qty : 1 on 08/07/2007 at [place] [facility] [place] Right: Groin [employer] 05/11/2010 [id number] / / [id number] Graft Healos [facility] 2761-60-010 - [id number] Implanted:Qty : 2 on 08/07/2007 at [place] [facility] [place] N/A: Spine Lumbar AJROD [employer] JAROD DEPUY [id number] / / Screw 5x35 Poly Si [id number] - [id number] Implanted:Qty : 4 on 08/07/2007 at [place] [facility] [place] N/A: Spine Thoracic JAROD [employer] JAROD DEPUY [id number] / / Screw 6x35 Poly Si [id number] - [id number] Implanted:Qty : 4 on 08/07/2007 at [place] [facility] [place] N/A: Spine Thoracic JAROD [employer] JAROD DEPUY [id number] / / Hook Blade Wide [id number] - [id number] Implanted:Qty : 2 on 08/07/2007 at [place] [facility] [place] N/A: Spine Thoracic JAROD [employer] JAROD DEPUY [id number] / / Screw Set Sng Inner [id number] - [id number] Implanted:Qty : 14 on 08/07/2007 at [place] [facility] [place] N/A: Spine Thoracic JAROD [employer] JAROD DEPUY [id number] / / Screw 6x40 Poly Si [id number] - [id number] Implanted:Qty : 3 on 08/07/2007 at [place] [facility] [place] N/A: Spine Thoracic JAROD [employer] JAROD DEPUY [id number] / / Pb 480mm [id number] - [id number] Implanted:Qty : 1 on 08/07/2007 at [place] [facility] [place] N/A: Spine Thoracic JAROD [employer] JAROD DEPUY [id number] / / Screw 7x40 Poly Si [id number] - [id number] Implanted:Qty : 2 on 08/07/2007 at [place] [facility] [place] N/A: Spine Thoracic JAROD [employer] JAROD DEPUY [id number] / / documented as of this encounter Procedures Procedure Name Priority Date/Time Associated Diagnosis Comments URINALYSIS, POINT OF CARE Routine 12/25/2023 3:23 PM EST UTI symptoms documented in this encounter Results * (ABNORMAL) URINALYSIS, POINT OF CARE (12/25/2023 3:23 PM EST) Color, Urine Yellow Light Yellow, Yellow 12/25/2023 3:28 PM EST [facility] Clarity, Urine Clear Clear 12/25/2023 3:28 PM EST [facility] Glucose, Urine Negative Negative mg/dL 12/25/2023 3:28 PM EST [facility] Bilirubin, Urine Small(A) Negative 12/25/2023 3:28 PM EST [facility] Ketone, Urine 15(A) Negative mg/dL 12/25/2023 3:28 PM EST [facility] Specific [place], Urine >=1.030 1.003 - 1.030 12/25/2023 3:28 PM EST [facility] Blood, Urine Negative Negative 12/25/2023 3:28 PM EST [facility] pH, Urine 5.5 5.0, 5.5, 6.0, 6.5, 7.0, 7.5 units 12/25/2023 3:28 PM EST [facility] Protein, Urine Trace(A) Negative mg/dL 12/25/2023 3:28 PM EST [facility] Urobilinogen, Urine 1.0 0.2, 1.0 mg/dL 12/25/2023 3:28 PM EST [facility] Nitrite, Urine Negative Negative 12/25/2023 3:28 PM EST [facility] Esterase, Urine Negative Negative 12/25/2023 3:28 PM EST [facility] Urine 12/25/2023 3:23 PM EST 12/25/2023 3:28 PM EST Salvador Arreola MD LAB POINT OF C ARE TEST DOCKED DEVICE UNSOLICITED RESULTS Final Result [facility] [address] [place] [address] documented in this encounter Visit Diagnoses Diagnosis Enterococcus UTI- Primary Urinary tract infection, site not specified UTI symptoms Other symptoms involving urinary system Paraplegia (HCC) Paraplegia Impacted cerumen of left ear Impacted cerumen documented in this encounter Advance Directives * [...] and were consensually agreed upon. Care Teams Bedspread Cutter Hand Relationship Specialty Start Date End Date Rigoberto Rodriguez MD [address] [facility] [place] [phone] PCP - General Family Medicine 03/27/18 documented as of this encounter"
--- OUTSIDE RECORDS SUMMARY | 2024-04-18 00:14 | External Medical Summary | Summary of Care ---
Author Name Unknown Organization [facility] Address [address] [place] [address] Phone [phone] Care Team Providers Care Loom Operator Name Role Phone Rigoberto Rodriguez MD Primary Care Provider +1- [phone] Reason for Visit * Reason Comments Outpatient Testing Encounter Details Date Type Department Care Team (Late st Contact Info) Description 11/28/2023 10:40 AM EDT Laboratory Laboratory, [facility] [address] [place] [phone] [facility] [address] [place] [address] Paraplegia (HCC) Allergies Active Allergy Reactions Criticality Noted Date Comments Penicillins Hives 10/06/2020 Had hives on chest with trial of PCN September 2020 Tolerated ampicillin Tolerated amoxicillin Tolerated ceftriaxone Tolerated cefazolin documented as of this encounter (statuses as of 11/28/2023) Medications Medication Sig Dispensed Refills Start Date End Date Status BISACODYL 10 MG SD SUPPIndications:Uns pecified site of spinal cord injury without evidence of spinal bone injury,Paraplegia (HCC),Closed fracture of thoracic vertebra (HCC),Acute constipation 1 Suppository SD EVERY OTHER DAY 0 0 08/17/2007 Active [...] nal cord injury, thoracic region, subsequent encounter ([facility]),Chronic retention of urine Take 1 Tablet [...] 5 MG Oral Tablet (Oxy IR)Indications:Para plegia ([facility]) Take 1 Tablet by mouth every 4 hours as needed (pain). 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 Increased risk for Rodriguez Syndrome. Gastroesophageal reflux [...] Upcoming Encounters Date Type Department Care Team ([facility] st Contact Info) Description 03/15/2024 2:00 PM EST Office Visit Dermatology [address] [phone] Reggie Nevarez PA-C [address] [place] [phone] Pending Results Name Type Priority Associated Diagnoses Date /Time CULTURE, URINE, QUANTITATIVE Lab Routine Paraplegia (HCC) 11/28/2023 10:36 AM EDT Scheduled Procedures Name Priority Associated Diagnoses Date/Ti [...] this encounter Medical Devices Implanted Type Area New Car Salesperson Device Identifier Shelf Expiration Date Model / Serial / Lot Graft Healos [facility] 2761-60-005 - [id number] [place]ed:Q[place] : 2 [place] [facility] [place]: Spine Lumbar JAROD [employer] JAROD DEPUY [id number] / / Filter Tulip Hunter Fem [id number] - [id number] Implanted:Qty : 1 on 08[place]07/2007 [place] [facility] [place]: Groin [employer] 05/11/2010 [id number] / / [id number] Graft Healos 10 2761-60-010 - [id number] Implanted:Qty : 2 on 08/07/2007 [place] [facility] [place]: Spine Lumbar JAROD [employer] JAROD DEPUY [id number] / / Screw 5x35 Poly Si [id number] - [id number] Implanted:Qty : 4 on 08/07/2007 [place] [facility] [place]: Spine Thoracic JAROD [employer] JAR[employer] DEPUY [id number] / / Screw 6x35 Poly Si [id number] - [id number] Implanted:Qty : 4 on 08/07/2007 [place] [facility] [place]/A: Spine Thoracic JAROD [employer] JAROD DEPUY [id number] / / Hook Blade Wide [id number] - [id number] Implanted:Qty : 2 on 08/07/2007 [place] [facility] [place]A: Spine Thoracic JAROD [employer] JAROD DEPUY [id number] / / Screw Set Sng Inner [id number] - [id number] Implanted:Qty : 14 on 08/07/2007 [place] [facility] [place]: Spine Thoracic JAROD [employer] JAROD DEPUY [id number] / / Screw 6x40 Poly Si [id number] - [id number] Implanted:Qty : 3 on 08/07/2007 [place] [facility] [place]A: Spine Thoracic JAROD [employer] JAR[employer] DEPUY [id number] / / Pb 480mm [id number] - [id number] Implanted:Qty : 1 on 08/07/2007 [place] [facility] [place]A: Spine Thoracic JAROD [employer] JAROD DEPUY [id number] / / Screw 7x40 Poly Si [id number] - [id number] Implanted:Qty : 2 on 08/07/2007 [place] [facility] [place]/A: Spine Thoracic JAROD [employer] JAROD DEPUY [id number] / / documented as of this encounter [...] and were consensually agreed upon. Care Teams Loom Operator Relationship Specialty Start Date End Date Rigoberto Rodriguez MD [address] [facility] [place] [address] PCP - General Family Medicine 03/27/18 documented as of this encounter
--- OUTSIDE RECORDS SUMMARY | 2024-04-18 00:14 | External Medical Summary | Summary of Care ---
Author Name Unknown Organization [facility] Address [address] [place] [facility] [place] [address] Phone [phone] Care Team Providers Care Mustanger Name Role Phone Rigoberto Rodriguez MD Primary Care Provider +1- [phone] Reason for Visit * Reason Comments Urinary Tract Infection Symptoms Pt here for c/o b/l flank pain and incontinence. Pt believes he may have another UTI. Ear Problem Pt reports having le ft feels clogged. Encounter Details Date Type Department Care Team (Late st Contact Info) Description 12/25/2023 3:00 PM EST Office Visit Family Practice [facility] [place] [address] Salvador Arreola MD [address] [place] [address] Enterococcus UTI*; UTI symptoms; Paraplegia (HCC); Impacted cerumen of left ear Allergies Active Allergy Reactions Criticality Noted Date Comments Penicillins Hives 10/06/2020 Had hives on chest with trial of PCN September 2020 Tolerated ampicillin Tolerated amoxicillin Tolerated ceftriaxone Tolerated cefazolin documented as of this encounter (statuses as of 12/25/2023) Medications BISACODYL 10 MG SC SUPPIndications: Unspecified site of spinal cord injury without evidence of spinal bone injury,Paraplegi a (HCC),Closed fracture of thoracic vertebra (HCC),Acute constipation 1 Suppository SC EVERY OTHER DAY 0 0 08/17/19 08 [...] Overview (05/12/2020): pathogenic MSH6 gene variant (c.3261delC, p.[id number]) detected via [employer]. Increased risk for Rodriguez Syndrome. Gastroesophageal reflux [...] mRNA, LNP-s, No Pre serve, 2-Dose Series ([employer]) 06/26/2020,06/05/2020 PPD 10/26/2021 Seasonal Influenza Vac., MDV, [...] Upcoming Encounters Date Type Department Care Team ([facility] st Contact Info) Description 03/15/2024 2:00 PM EST Office Visit Dermatology [address] [phone] Reggie Nevarez PA-C [address] [place] [phone] Pending Results Name Type Priority Associated Diagnoses [...] this encounter Medical Devices Implanted Type Area Fruit Packer Face And Fill Device Identifier Shelf Expiration Date Model / Serial / Lot Graft Healos [facility] 2761-60-005 - [id number] Implanted:Qty : 2 on 08/07/2007 [place] [facility] [place]/A: Spine Lumbar JAROD & JAROD DEPUY [id number] / / Filter Tulcecilia Harrison Fem [id number] - [id number] Implanted:Qty : 1 on 08/07/2007 [place] [facility] [place] Right: Groin [employer] 05/11/2010 [id number] / / [id number] Graft Healos [facility] 2761-60-010 - [id number] Implanted:Qty : 2 on 08/07/2007 [place] [facility] [place] N/A: Spine Lumbar JAROD [employer] JAROD DEPUY [id number] / / Screw 5x35 Poly Si [id number] - [id number] Implanted:Qty : 4 on 08/07/2007 [place] [facility] [place] N/A: Spine Thoracic JAROD & JAROD DEPUY [id number] / / Screw 6x35 Poly Si [id number] - [id number] Implanted:Qty : 4 on 08/07/2007 [place] [facility] [place] N/A: Spine Thoracic JAROD & JAROD DEPUY [id number] / / Hook Blade Wide [id number] - [id number] Implanted:Qty : 2 on 08/07/2007 at [place] [facility] [place] N/A: Spine Thoracic JAROD & JAROD DEPUY [id number] / / Screw Set Sng Inner [id number] - [id number] Implanted:Qty : 14 on 08/07/2007 [place] [facility] [place] N/A: Spine Thoracic JAROD [employer] JAROD DEPUY [id number] / / Screw 6x40 Poly Si [id number] - [id number] Implanted:Qty : 3 on 08/07/2007 at [place] [facility] [place] N/A: Spine Thoracic JAROD & JAROD DEPUY [id number] / / Pb 480mm [id number] - [id number] Implanted:Qty : 1 on 08/07/2007 [place] [facility] [place] N/A: Spine Thoracic JAROD & JAROD DEPUY [id number] / / Screw 7x40 Poly Si [id number] - [id number] Implanted:Qty : 2 on 08/07/2007 [place] [facility] [place] N/A: Spine Thoracic JAROD [employer] JAROD DEPUY [id number] / / documented as of this encounter Procedures Procedure Name Priority Date/Time Associated Diagnosis Comments URINALYSIS, POINT OF CARE Routine 12/25/2023 3:23 PM EST UTI symptoms documented in this encounter Results * (ABNORMAL) URINALYSIS, POINT OF CARE (12/25/2023 3:23 PM EST) Color, Urine Yellow Light Yellow, Yellow 12/25/2023 3:28 PM EST [facility] Clarity, Urine Clear Clear 12/25/2023 3:28 PM EST [facility] Glucose, Urine Negative Negative mg/dL 12/25/2023 3:28 PM EST [facility] Bilirubin, Urine Small(A) Negative 12/25/2023 3:28 PM EST [facility] Ketone, Urine 15(A) Negative mg/dL 12/25/2023 3:28 PM EST [facility] Specific [place], Urine >=1.030 1.003 - 1.030 12/25/2023 3:28 [...] Final Result [facility] [place] [address] documented in this encounter Visit Diagnoses Diagnosis [...] and were consensually agreed upon. Care Teams Mustanger Relationship Specialty Start Date End Date Rigoberto Rodriguez MD [address] [facility] [place] [phone] PCP - General Family Medicine 03/27/18 documented as of this encounter"
--- OUTSIDE RECORDS SUMMARY | 2024-04-18 00:14 | External Medical Summary ---
Author Name Unknown Address Unknown Organization [id number][facility] [place] [address] [facility] [place]. [facility] [address] Laboratory Report Ordering Provider Test Date Status ARY CAMPOS 11/28/2023 10:36:39 Final Observation Date Value Abnormality Reference (Units ) Status Bacteria identified in Specimen by Culture 11/28/2023 10:36:39 [id number]^ENTEROC OCCUS SPECIES Abnormal Final 10,000 to 100,000 colonies/m L Enterococcus species Performing Location [facility] [place] [address] [facility] [place] [address] Ordering Provider Test Date Status ARY CAMPOS 11/28/2023 10:36:39 Final Observation Date Value Abnormality Reference (Units ) Status Ampicillin 11/28/2023 10:36:39 <=2 Susceptible Final Nitrofurantoin susceptibility 11/28/2023 10:36:39 <=16 Susceptible Final Tetracyclinesusceptibility 11/28/2023 10:36:39 >=16 Resistant Final Vancomycinsusceptibility 11/28/2023 10:36:39 1 Susceptible Final Test: Culture, Urine, Quanti tative
Specimen Source: Urine, Catheter
Specimen Type: Urine
Specimen Date: 11/28/2023 1036
Result Date: 11/30/2023 1011
Result Status: Final result
Abnormal: Yes
Resulting Lab: [facility]
[address] [facility] [address]

CULTURE

10,000 to 100,000 colonies/mL Enterococcus species (Abnormal)

SUSCEPTIBILITY

Enterococcus
species
METHOD MICROBROTH
DILUTIONS

AMPICILLIN <=2 Susceptible
NITROFURANTOIN <=16 Susceptible
TETRACYCLINE >=16 Resistant
VANCOMYCIN 1 Susceptible

null Performing Location [facility] [place] [address] [facility] [place]. [facility] [address]
--- OUTSIDE RECORDS SUMMARY | 2024-04-18 00:14 | External Medical Summary ---
Author Name Unknown Address Unknown Organization [id number]:[facility] [place] - [address] [place] [place] [id number] Laboratory Report Ordering Provider Test Date Status DOMO CARCAMO 12/25/2023 15:51:37 Final <10,000 colonies/ml mixed no rmal ayesha Observation Date Value Abnormality Reference (Units ) Status Bacteria identified in Specimen by Culture 12/25/2023 15:51:37 [id number]^STREPTO COCCUS VIRIDANS GROUP Abnormal Final 10,000 to 100,000 colonies/m L Streptococcus viridans group
Test: Culture, Urine, Quantitative
Specimen Source: Urine, Clean Catch
Specimen Type: Urine
Specimen Date: 12/25/2023 1551
Result Date: 12/28/2023 1106
Result Status: Final result
Abnormal: Yes
Resulting Lab: [facility] [place]
[address]
[facility] [address]

CULTURE

10,000 to 100,000 colonies/mL Streptococcus viridans group (Abnormal)

<10,000 colonies/ml mixed normal ayesha

null Performing Location [facility] [place] - [address] [place] [facility] [address]
--- OUTSIDE RECORDS SUMMARY | 2024-04-18 00:14 | External Medical Summary | Summary of Care ---
Author Name Unknown Organization [facility] Address [address] [place] [address] Phone [phone] Care Team Providers Care Information Assistant Name Role Phone Siomara Muñiz MD Primary Care Provider +1- [phone] Reason for Referral * Medication Prior Authorization - Closed Specialty Diagnoses / Procedures Referred By Contac t Referred To Contact Diagnoses Paraplegia (HCC) Siomara Muñiz MD [address] [place] [address] Referral ID Status Reason Start Date Expiration Date Visits Re quested Visits Authorized [id number] Closed 999 999 Reason for Visit * Reason Onset Date Comments Medication Refill 11/28/2023 Encounter Details Date Type Department Care Team (Late st Contact Info) Description 11/28/2023 Refill [facility] [address] [place] [address] Siomara Muñiz MD [address] [place] [address] Paraplegia (HCC) Allergies Active Allergy Reactions Criticality Noted Date Comments Penicillins Hives 10/06/2020 Had hives on chest with trial of PCN September 2020 Tolerated ampicillin Tolerated amoxicillin Tolerated ceftriaxone Tolerated cefazolin documented as of this encounter (statuses as of 12/01/2023) Medications Medication Sig Dispensed Refills Start Date End Date Status BISACODYL [address] SUPPIndications:U nspecified site of spinal cord injury without evidence of spinal bone injury,Paraplegia (HCC),Closed fracture of thoracic vertebra (HCC),Acute constipation [address] EVERY OTHER DAY 0 0 08/17/2007 Active SELF-CATH STRAIGHT TIPPED CATH MISCIndications:C losed fracture of T7-T12 level with complete lesion of cord 14french 180 Device 11 10/26/2009 Active VITAMIN C 500 MG PO CHEWIndications:U TI (lower urinary tract infection) 1 TABLET orally 4 times DAILY 120 Tab 11 11/26/2012 Active Ketoconazole 2 % creamIndications: Tinea corporis Apply topically to affected area twice daily until resolved 15 g 1 02/28/2017 Active Additional Information Patient not taking.Reported on 03/13/2023 Docusate Sodium 100 MG Oral Capsule (Colace)Indicatio ns:Spinal cord injury at C5-C7 level without injury [...] 10 MG Oral Tablet Extended Release 24 HourIndications:S rosa cord injury, thoracic region, subsequent encounter ([facility]),Chronic retention of urine Take 1 Tablet by mouth in the morning and 1 Tablet before bedtime. 180 Tablet 3 02/21/2023 Active Sildenafil Citrate 20 MG Oral Tablet (Revatio)Indicati ons:Erectile dysfunction due to diseases classified elsewhere TAKE 1-5 TABLETS BY MOUTH AT LEAST 1 HOUR PRIOR TO INTERCOURSE NEEDED 90 Tablet 09/22/2023 Active Famotidine 20 MG Oral Tablet (Pepcid) TAKE 1 TABLET BY MOUTH TWICE A DAY 60 Tablet 2 10/30/2023 Active Acyclovir 400 MG Oral Tablet (Zovirax)Indicati ons:Herpes simplex virus infection TAKE 1 TABLET BY MOUTH TWICE A DAY 60 Tablet 2 10/30/2023 Active oxyCODONE HCl 5 MG Oral Tablet (Oxy IR)Indications:Pa raplegia (HCC) Take 1 Tablet by mouth every 4 hours as needed (pain). 150 Tablet 12/01/2023 Active oxyCODONE HCl 5 MG Oral Tablet (Oxy IR)Indications:Pa raplegia (HCC) Take 1 Tablet by mouth every 4 hours as needed (pain). 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 Increased risk for Rodriguez Syndrome. Gastroesophageal reflux disease 08/18/2019 Spinal cord injury, thoracic region, subsequent encounter 03/24/2019 MEDICATION USE AGREEMENT 01/09/2017 Overview: Signed 07/01/16 Neurogenic bladder 10/07/2014 Low back pain 11/17/2013 Paraplegia 08/06/2007 Dyslipidemia, goal LDL below 100 documented as of this encounter (statuses as of 12/01/2023) Resolved Problems Problem Noted Date Diagnosed Date [...] sites, including multiple 08/17/200712/11 Acute constipation 08/13/2007 05/200 9 Overview: Resolved per Benign Acute Dxs [...] as of this encounter (statuses as of 12/01/2023) Immunizations Name Administration Dates Next Due COVID-19 mRNA, LNP-s, No Pre serve, 2-Dose Series ([employer]) 06/26/2020,06/05/2020 PPD 10/26/2021 Seasonal Influenza Vac., MDV, [...] Telephone Encounter - Siomara Muñiz MD - 12/01/2023 8:59 AM EDTSigned Prescriptions: Disp Refills oxyCODONE HCl 5 MG Oral Tablet (Oxy IR) 150 Ta*0 Sig: Take 1 Tablet by mouth every 4 hours as needed (pain).Authorizing Provider: SIOMARA MUÑIZ * Telephone Encounter - Demetra Suárez [facility] - 12/01/2023 7:11 AM EDT Pending Prescriptions: Disp Refills oxyCODONE HCl 5 MG Oral Tablet (Oxy IR) 150 Ta*0 Sig: Take 1 Tablet by mouth every 4 hours as needed (pain). * Telephone Encounter - Demetra Suárez [facility] - 12/01/2023 7:10 AM EDT I have reviewed the patients controlled substance dispensing history in the Prescription Drug Monitoring Program in compliance with the [facility] regulations before prescribing a controlled substance. PDMP checked on 12/01/2023. Pending Prescriptions: Disp Refills oxyCODONE HCl 5 MG Oral Tablet (Oxy IR) 150 Ta*0 Sig: Take 1 Tablet by mouth every 4 hours as needed (pain). Last Visit: 02/21/2023 (in office), Visit date not found (telemedicine) Next Visit: Visit date not found Date medication was last filled: 10/30/23 Date medication is due for refill: 11/23/23 Pharmacy: [id number] [id number] Is this request for [...] Review. Please approve if appropriate. Thank you, Demetra Suárez, LizD Clinical Pharmacist Centralized Clinical Pharmacy Services ([facility]PS) [phone] 12/01/2023, 7:10 AM documented in this encounter Plan of Treatment Upcoming Encounters Date Type Department Care Team ([facility] st Contact Info) Description 03/15/2024 2:00 PM EST Office Visit Dermatology [facility] [address] [place] [phone] Reggie Nevarez PA-C [address] [place] [address] Scheduled Procedures Name Priority Associated Diagnoses Date/Ti [...] this encounter Medical Devices Implanted Type Area Bending Machine Set Up Operator Device Identifier Shelf Expiration Date Model / Serial / Lot Graft Healos [facility] 2761-60-005 - [id number] Implanted:Qty : 2 on 08/07/2007 at [place] [facility] N/A: Spine Lumbar JAROD & JAROD DEPUY [id number] / / Filter Tulip Hunter Fem [id number] - [id number] Implanted:Qty : 1 on 08/07/2007 at [place] [facility] Right: Groin [employer] 05/11/2010 [id number] / / [id number] Graft Healos [facility] 2761-60-010 - [id number] Implanted:Qty : 2 on 08/07/2007 at OR [facility] N/A: Spine Lumbar JAROD & JAROD DEPUY [id number] / / Screw 5x35 Poly Si [id number] - [id number] Implanted:Qty : 4 on 08/07/2007 at OR [facility] N/A: Spine Thoracic JAROD [employer] JAROD DEPUY [id number] / / Screw 6x35 Poly Si [id number] - [id number] Implanted:Qty : 4 on 08/07/2007 at OR [facility] N/A: Spine Thoracic JAROD & JAROD DEPUY [id number] / / Hook Blade Wide [id number] - [id number] Implanted:Qty : 2 on 08/07/2007 at OR [facility] N/A: Spine Thoracic JAROD [employer] JAROD DEPUY [id number] / / Screw Set Sng Inner [id number] - [id number] Implanted:Qty : 14 on 08/07/2007 at OR [facility] N/A: Spine Thoracic JAROD & JAROD DEPUY [id number] / / Screw 6x40 Poly Si [id number] - [id number] Implanted:Qty : 3 on 08/07/2007 at OR [facility] N/A: Spine Thoracic JAROD [employer] JAROD DEPUY [id number] / / Pb 480mm [id number] - [id number] Implanted:Qty : 1 on 08/07/2007 at OR [facility] N/A: Spine Thoracic JAROD & JAROD DEPUY [id number] / / Screw 7x40 Poly Si [id number] - [id number] Implanted:Qty : 2 on 08/07/2007 at OR [facility] N/A: Spine Thoracic JAROD [employer] JAROD DEPUY [id number] / / documented as of this encounter [...] and were consensually agreed upon. Care Teams Information Assistant Relationship Specialty Start Date End Date Siomara Muñiz MD [address] [place] [facility] [place] [address] PCP - General Family Medicine 03/27/18 documented as of this encounter
--- OUTSIDE RECORDS SUMMARY | 2024-04-18 00:14 | External Medical Summary | Summary of Care ---
Author Name Unknown Organization [facility] Address [address] [place] [address] Phone [phone] Care Team Providers Care Embossing Machine Tender Name Role Phone Siomara Muñiz MD Primary Care Provider +1- [phone] Reason for Visit * Reason Comments eRx-Medication Refill Encounter Details Date Type Department Care Team (Late st Contact Info) Description 10/29/2023 Refill [facility] [address] [place] [address] Siomara Muñiz MD [address] [place] [address] Herpes simplex virus infection Allergies Active Allergy Reactions Criticality Noted Date Comments Penicillins Hives 10/06/2020 Had hives on chest with trial of PCN September 2020 Tolerated ampicillin Tolerated amoxicillin Tolerated ceftriaxone Tolerated cefazolin documented as of this encounter (statuses as of 10/30/2023) Medications Medication Sig Dispensed Refills Start Date End Date Status BISACODYL 10 MG LA SUPPIndications:U nspecified site of spinal cord injury without evidence of spinal bone injury,Paraplegia (HCC),Closed fracture of thoracic vertebra (HCC),Acute constipation 1 Suppository LA EVERY OTHER DAY 0 0 8 Active SELF-CATH STRAIGHT TIPPED CATH MISCIndications:C losed fracture of T7-T12 level with complete lesion of cord 14french 180 Device 11 0 Active VITAMIN C 500 MG PO CHEWIndications:U TI (lower urinary tract infection) 1 TABLET orally 4 times DAILY 120 Tab 11 3 Active Ketoconazole 2 % creamIndications: Tinea corporis [...] MOUTH TWICE A DAY 60 Cap 5 1 Active Additional Information Patient not taking.Reported on 03/13/2023 Gabapentin 300 MG Oral Capsule (Neurontin) TAKE 2 CAPSULES BY MOUTH 3 TIMES A DAY 450 Capsule 3 4 Active oxyBUTYnin Chloride ER 10 MG Oral Tablet Extended Release 24 HourIndications:S rosa cord injury, thoracic region, subsequent encounter ([facility] [...] 4 Active Acyclovir 400 MG Oral Tablet (Zovirax)Indicati ons:Herpes simplex virus infection TAKE 1 TABLET BY MOUTH TWICE A DAY 60 Tablet 2 4 Active oxyCODONE HCl 5 MG Oral Tablet (Oxy IR)Indications:Pa raplegia (HCC) Take 1 Tablet by mouth every 4 hours as needed (pain). 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 Increased risk for Rodriguez Syndrome. Gastroesophageal reflux disease 08/18/2019 Spinal cord injury, thoracic region, subsequent encounter 03/24/2019 MEDICATION USE AGREEMENT 01/09/2017 Overview: Signed 07/01/16 Neurogenic bladder 10/07/2014 Low back pain 11/17/2013 Paraplegia 08/06/2007 Dyslipidemia, goal LDL below 100 documented as of this encounter (statuses as of 10/30/2023) Resolved Problems Problem Noted Date Diagnosed Date [...] as of this encounter (statuses as of 10/30/2023) Immunizations Name Administration Dates Next Due COVID-19 mRNA, LNP-s, No Pre serve, 2-Dose Series (Pfizer) 06/26/2020,06/05/2020 PPD 10/26/2021 Seasonal Influenza, PF, 6 M & above, IM , (FluLaval or Fluzone) 11/21/2020,10/25/2019 Seasonal Influenza, Trivalen t, (IIV3), with Preserv, (Fluzone) 11/30/2007 TD, Preservative Free 07/21/2018 TDAP, Age 6 [...] Telephone Encounter - Siomara Muñiz MD - 10/30/2023 4:48 PM EDTSigned Prescriptions: Disp Refills Famotidine 20 MG Oral Tablet (Pepcid) 60 Tab*2 Sig: TAKE 1 TABLET BY MOUTH TWICE A DAYAuthorizing Provider: SIOMARA MUÑIZ Acyclovir 400 MG Oral Tablet (Zovirax) 60 Tab*2 Sig: TAKE 1 TABLET BY MOUTH TWICE A DAYAuthorizing Provider: SIOMARA MUÑIZ--------- * Telephone Encounter - Halina Conway [facility] - 10/30/2023 5:04 AM EDT Pending Prescriptions: Disp Refills Famotidine 20 MG Oral Tablet (Pepcid) 60 Tab*2 Sig: TAKE 1 TABLET BY MOUTH TWICE A DAY Acyclovir 400 MG Oral Tablet (Zovirax) 60 Tab*2 Sig: TAKE 1 TABLET BY MOUTH TWICE A DAY * Telephone Encounter - Halina Conway [facility] - 10/30/2023 5:03 AM EDT Pt notified 3 times of needing labs documented in this encounter Plan of Treatment Upcoming Encounters Date Type Department Care Team (Late st Contact Info) Description 03/15/2024 2:00 PM EST Office Visit Dermatology [facility] [address] [place] [phone] Reggie Nevarez PA-C [address] [place], [place] [phone] Scheduled Procedures Name Priority Associated Diagnoses Date/Ti [...] this encounter Medical Devices Implanted Type Area Director Of Science Device Identifier Shelf Expiration Date Model / Serial / Lot Graft Healos [facility] 2761-60-005 - [id number] Implanted:Q[place] : 2 [place] 08/07/[place] [facility]: Spine Lumbar JAROD & JAROD DEPUY [id number] / / Filter Lukasz Harrison Fem [id number] - [id number] Implanted:Qty : 1 on 08/07/2007 [place] [facility] Right: Groin [employer] 05/11/2010 [id number] / / [id number] Graft Healos 10 2761-60-010 - [id number] Implanted:Qty : 2 on 08/07/2007 [place] [facility]A: Spine Lumbar JAROD & JAROD DEPUY [id number] / / Screw 5x35 Poly Si [id number] - [id number] Implanted:Qty : 4 on 08/07/2007 [place] [facility]A: Spine Thoracic JAROD & JAROD DEPUY [id number] / / Screw 6x35 Poly Si [id number] - [id number] Implanted:Qty : 4 on 08/07/2007 [place] [facility] [place]A: Spine Thoracic JAROD & JAROD DEPUY [id number] / / Hook Blade Wide [id number] - [id number] Implanted:Qty : 2 on 08/07/2007 [place] [facility] [place]/A: Spine Thoracic JAROD & JAROD DEPUY [id number] / / Screw Set Sng Inner [id number] - [id number] Implanted:Qty : 14 on 08/07/2007 at [facility] N/A: Spine Thoracic JAROD & JAROD DEPUY [id number] / / Screw 6x40 Poly Si [id number] - [id number] Implanted:Qty : 3 on 08/07/2007 [place] [facility]/A: Spine Thoracic JAROD & JAROD DEPUY [id number] / / Pb 480mm [id number] - [id number] Implanted:Qty : 1 on 08/07/2007 [place] [facility] [place]/A: Spine Thoracic JAROD & JAROD DEPUY [id number] / / Screw 7x40 Poly Si [id number] - [id number] Implanted:Qty : 2 on 08/07/2007 [place] [facility] [place]/A: Spine Thoracic JAROD & JAROD DEPUY [id number] / / documented as of this encounter [...] and were consensually agreed upon. Care Teams Embossing Machine Tender Relationship Specialty Start Date End Date Siomara Muñiz MD [address] [facility] [place] [address] PCP - General Family Medicine 03/27/18 documented as of this encounter
--- OUTSIDE RECORDS SUMMARY | 2024-04-18 00:14 | External Medical Summary | Summary of Care ---
Author Name Unknown Organization [facility] Address [address] [place] [address] Phone [phone] Care Team Providers Care Project Engineer Chemicals Name Role Phone Siomara Muñiz MD Primary Care Provider +1- [phone] Reason for Visit * Reason Onset Date Comments Medication Refill 10/29/2023 Encounter Details Date Type Department Care Team (Late st Contact Info) Description 10/29/2023 Refill [facility] [address] [place] [address] Siomara Muñiz MD [address] [place] [address] Paraplegia (HCC) Allergies Active Allergy Reactions Criticality Noted Date Comments Penicillins Hives 10/06/2020 Had hives on chest with trial of PCN September 2020 Tolerated ampicillin Tolerated amoxicillin Tolerated ceftriaxone Tolerated cefazolin documented as of this encounter (statuses as of 10/30/2023) Medications Medication Sig Dispensed Refills Start Date End Date Status BISACODYL 10 MG TN SUPPIndications: Unspecified site of spinal cord injury without evidence of spinal bone injury,Paraplegi a (HCC),Closed fracture of thoracic vertebra (HCC),Acute constipation 1 Suppository TN EVERY OTHER DAY 0 0 8 Active SELF-CATH STRAIGHT TIPPED CATH MISCIndications: Closed fracture of T7-T12 level with complete lesion of cord 14french 180 Device 11 0 Active VITAMIN C 500 MG PO CHEWIndications: UTI (lower urinary tract infection) 1 TABLET orally 4 times DAILY 120 Tab 11 3 Active Ketoconazole 2 % creamIndications :Tinea corporis Apply topically to affected area twice daily until resolved 15 g 1 8 Active Additional Information Patient not taking.Reported on 03/13/2023 Docusate Sodium 100 MG Oral Capsule (Colace)Indicati [...] TO INTERCOURSE NEEDED 90 Tablet 4 Active oxyCODONE HCl 5 MG Oral Tablet (Oxy IR)Indications:P araplegia (HCC) Take 1 Tablet by mouth every 4 hours as needed (pain). 150 Tablet 4 Active Famotidine 20 MG Oral Tablet (Pepcid) TAKE 1 TABLET BY MOUTH TWICE A DAY 60 Tablet 2 4 10/30/19 24 Discontinued Acyclovir 400 MG Oral Tablet (Zovirax)Indicat ions:Herpes simplex virus infection TAKE 1 TABLET BY MOUTH TWICE A DAY 60 Tablet 2 4 10/30/19 24 Discontinued oxyCODONE HCl 5 MG Oral Tablet (Oxy IR)Indications:P araplegia (HCC) Take 1 Tablet by mouth every 4 hours as needed (pain). 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 Increased risk for Rodriguez Syndrome. Gastroesophageal reflux [...] mRNA, LNP-s, No Pre serve, 2-Dose Series ([employer]) 06/26/2020,06/05/2020 PPD 10/26/2021 Seasonal Influenza, PF, 6 [...] Encounter - Siomara Muñiz MD - 10/30/2023 4:44 PM EDTSigned Prescriptions: Disp Refills oxyCODONE HCl 5 MG Oral Tablet (Oxy IR) 150 Ta*0 Sig: Take 1 Tablet by mouth every 4 hours as needed (pain).Authorizing Provider: SIOMARA MUÑIZ * Telephone Encounter - Abby Sahni [facility] - 10/30/2023 10:44 AM EDT Pending Prescriptions: Disp Refills oxyCODONE HCl 5 MG Oral Tablet (Oxy IR) 150 Ta*0 Sig: Take 1 Tablet by mouth every 4 hours as needed (pain). * Telephone Encounter - Abby Sahni [facility] - 10/30/2023 10:42 AM EDT I have reviewed the patients controlled substance dispensing history in the Prescription Drug Monitoring Program in compliance with the [facility] regulations before prescribing a controlled substance. PDMP checked on 10/30/2023. Pending Prescriptions: Disp Refills oxyCODONE HCl 5 MG Oral Tablet (Oxy IR) 150 Ta*0 Sig: Take 1 Tablet by mouth every 4 hours as needed (pain). Last Visit: 02/21/2023 (in office), Visit date not found (telemedicine) Next Visit: Visit date not found Date medication was last filled: 09/30/23 Date medication is due for refill: 10/25/23 Pharmacy: [id number] [address] Is this request [...] Review. Please approve if appropriate. Thank you, Abby Sahni, PharmD, VIKRAM Clinical Pharmacist Centralized Clinical Pharmacy Services ([facility]PS) 10/30/23 10:42 AM [phone] documented in this encounter Plan of Treatment Upcoming Encounters Date Type Department Care Team ([facility] st Contact Info) Description 03/15/2024 2:00 PM EST Office Visit Dermatology [address] [id number] Reggie Nevarez PA-C [address] [place] [phone] Scheduled Procedures Name Priority Associated Diagnoses Date/Ti [...] this encounter Medical Devices Implanted Type Area Drop Shipment Clerk Device Identifier Shelf Expiration Date Model / Serial / Lot Graft Healos [facility] 2761-60-005 - [id number] Implanted:Qty : 2 on 08/07/2007 at [place] [facility] [place] N/A: Spine Lumbar JAROD & JAROD DEPUY [id number] / / Filter Lukasz Lopez [id number] - [id number] Implanted:Qty : 1 on 08/07/2007 at [place] [facility] Right: Groin [employer] 05/11/2010 [id number] / / [id number] Graft Healos [facility] 2761-60-010 - [id number] Implanted:Qty : 2 on 08/07/2007 at [place] [facility] N/A: Spine Lumbar JAROD & JAROD DEPUY [id number] / / Screw 5x35 Poly Si [id number] - [id number] Implanted:Qty : 4 on 08/07/2007 at [place] [facility] N/A: Spine Thoracic JAROD & JAROD DEPUY [id number] / / Screw 6x35 Poly Si [id number] - [id number] Implanted:Qty : 4 on 08/07/2007 at [place] [facility] N/A: Spine Thoracic JAROD [employer] JAROD DEPUY [id number] / / Hook Blade Wide [id number] - [id number] Implanted:Qty : 2 on 08/07/2007 at [place] [facility] [place] N/A: Spine Thoracic JAROD & JAROD DEPUY [id number] / / Screw Set Sng Inner [id number] - [id number] Implanted:Qty : 14 on 08/07/2007 at [place] [facility] [place] N/A: Spine Thoracic JAROD & JRAOD DEPUY [id number] / / Screw 6x40 Poly Si [id number] - [id number] Implanted:Qty : 3 on 08/07/2007 at [place] [facility] [place] N/A: Spine Thoracic JAROD [employer] JAROD DEPUY [id number] / / Pb 480mm [id number] - [id number] Implanted:Qty : 1 on 08/07/2007 at [place] [facility] N/A: Spine Thoracic JAROD & JAROD DEPUY [id number] / / Screw 7x40 Poly Si [id number] - [id number] Implanted:Qty : 2 on 08/07/2007 at [place] [facility] N/A: Spine Thoracic JAROD & JAROD DEPUY [id number] / / documented as of this encounter [...] and were consensually agreed upon. Care Teams Project Engineer Chemicals Relationship Specialty Start Date End Date Siomara Muñiz MD [address] [place] [address] PCP - General Family Medicine 03/27/18 documented as of this encounter
--- NOTE | 2024-04-18 01:31 | CT Scan Report ---
Exam(s): CTA CHEST IV Amt: 118 cc's optiray 320 EXAM: CT Angiography Chest With Intravenous Contrast CLINICAL HISTORY: cp. TECHNIQUE: Axial computed tomographic angiography images of the chest with intravenous contrast. MIPS images were created and reviewed. CTDI is 59. 37 mGy and DLP is 1077.47 mGy-cm. Automated exposure control was utilized for the study. A dose lowering technique was utilized adhering to the principles of ALARA. MIP reconstructed images were created and reviewed. COMPARISON: No relevant prior studies available. FINDINGS: Pulmonary arteries: Unremarkable. No pulmonary embolus. Aorta: Mild atherosclerosis. No thoracic aortic aneurysm. Lungs: Bilateral airspace opacities are worse of the left lower lobe, right middle lobe and lingula. Question superimposed mild pulmonary edema. Scattered pulmonary nodules measure up to 4 mm. Pleural space: Trace bilateral pleural effusions. No pneumothorax. Heart: Unremarkable. No cardiomegaly. No significant pericardial effusion. No evidence of RV dysfunction. Bones/joints: There are degenerative changes of the spine. No acute fracture. Soft tissues: Unremarkable. Lymph nodes: Unremarkable. No enlarged lymph nodes. IMPRESSION: 1. No pulmonary embolus. 2. Bilateral airspace opacities are worse of the left lower lobe, right middle lobe and lingula. These are concerning for atypical pneumonia and/or aspiration. 3. Question superimposed mild pulmonary edema. 4. Trace bilateral pleural effusions. 5. Scattered pulmonary nodules measure up to 4 mm. Fleischner Society Guidelines suggest one should consider a follow-up chest CT at 12 months in low-risk or high-risk patients due to the morphology and/or location of this nodule. If unchanged, no further follow-up is necessary. Electronically signed by: Nathalia Aguirre MD 04/18/24 01:30 AM
[2024-04-18 05:45] LABS: Basophils # (auto) 0.06 K/uL (0.00-0.20); Basophils % (auto) 0.4 %; Eosinophils # (auto) 0.08 K/uL (0.00-0.50); Eosinophils % (auto) 0.5 %; Hematocrit (blood only) 34.6 % (42.0-52.0); Hemoglobin 11.5 g/dl (14.0-18.0); Immature Granulocytes # (auto) 0.06 K/uL (0.01-0.20); Immature Granulocytes % (auto) 0.4 %; Lymphocytes # (auto) 1.04 K/uL (1.20-3.40); Lymphocytes % (auto) 6.9 %; Mean Corpuscular Hemoglobin 29.5 pg (25.0-34.0); Mean Corpuscular Hgb Conc 33.2 g/dL (32.0-36.0); Mean Corpuscular Volume 88.7 fL (80.0-100.0); Mean Platelet Volume 10.2 fL (9.4-12.4); Neutrophils # (auto) 12.84 K/uL (1.40-6.50); Neutrophils % (auto) 85.8 %; Platelet Count 319 K/uL (130-400); RDW Coefficient of Variation 13.6 % (11.5-14.5); RDW Standard Deviation 44.3 fL (36.4-46.3); Reticulocyte % 0.87 % (0.50-2.00); White Blood Count 14.98 K/ul (4.8-10.8)
[2024-04-18 06:02] LABS: BUN Creatinine Ratio 10.5 (10-20); Potassium 3.8 mmol/L (3.5-5.1)
[2024-04-18 06:22] LABS: Ferritin 284.5 ng/ml (8-388)
[2024-04-18 06:28] LABS: Folate (Folic Acid),Ser orPlas 9.93 ng/ml (>5.38)
[2024-04-18] MEDS: ENOXAPARIN INJ 40 MG/0.4 ML SYR SQ SCH (08:18)
[2024-04-18] MEDS: FAMOTIDINE 20 MG TAB PO SCH (08:18)
[2024-04-18] MEDS: OXYBUTYNIN CHLORIDE XL 5 MG TABCR PO SCH (08:19)
[2024-04-18] MEDS: ACYCLOVIR 400 MG TAB PO SCH (08:19)
[2024-04-18] MEDS: DOXYCYCLINE HYCLATE 100 MG CAP PO SCH (08:19)
[2024-04-18 09:11] LABS: Estimated Average Glucose 120 mg/dl; Hemoglobin A1C 5.8 % (4.5-5.6)
--- NOTE | 2024-04-18 11:19 | Hospitalist Progress Note ---
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 Patient also reports pleuritic chest pain at the bases and shortness of breath. He is being managed for the following: Sepsis secondary to community-acquired pneumonia Rule out PE given pruritic chest pain complaints Patient comes in with cough and fever. Admitting WBC, procalcitonin, pulse rate elevated. Lactate WNL. CT chest with no PE, suggestive of bilateral airspace opacities concerning for atypical pneumonia. Patient started on ceftriaxone 04/18 and doxycycline 04/18, continue. Add probiotic. Patient has been afebrile, reports feeling better and slight improvement in his cough. Follow admitting blood culture. Follow-up with chest imaging in 2 to 3 months to document resolution of pneumonia. Prediabetes: A1c of 5.8 this admission. New diagnosis. Will consult certified breastfeeding educator. Encourage lifestyle modification, follow-up with A1c in 3 months and closely follow-up with PCP for ongoing monitoring. Likely new onset anemia: Hemoglobin of 15.4 in 2021. Admitting hemoglobin of 13.3, iron level at 11, low normal vitamin B12 and folate level. Will start iron/B12/folic acid supplementation. Repeat iron studies in 3 months. Patient denies overt bleed symptoms, and will possibly need GI evaluation as an outpatient for colonoscopy. Await FOBT. Abnormal CTA chest: Scattered pulmonary nodules up to 4 mm noted. Follow-up CT scan in 12 months time. Other chronic medical conditions: Continue with/resume home meds as and when able. hyperlipidemia, not on statin Rx neurogenic bladder/paraplegia secondary to traumatic thoracic spinal cord injury GERD, stable on H2 kevin genital herpes on chronic HSV Rx Hyperglycemia rule out DM New onset anemia, patient denies overt bleed symptoms DVT prophylaxis with Lovenox subcu Full code Text document was generated using [employer] voice recognition software. It may contain grammatical or spelling errors. Kindly contact undersigned for clarification of any documentation item in question. Admission and Anticipated Discharge Date Admission Date: April 17, 2024 Subjective Patient was seen and examined at bedside. Patient was lying in bed, on room air, NAD, resting comfortably. Patient reports overall feeling better, reports slight improvement in his cough. Patient has been afebrile. Physical Exam Physical Exam: GENERAL: NAD, no respiratory distress SKIN: Pallor, warm HEENT: nl palpebral conjunctivae, no ptosis, moist buccal mucosa NECK : Supple, no tenderness CHEST : Decreased breath sounds, no tenderness HEART : RRR, no obvious murmurs ABDOMEN: Some distention, nontender RECTAL : Refused EXTREMITIES : No LE swelling/tenderness, palpable pulses, no other conspicuous d eformities noted NEUROLOGIC : Coherent, no facial asymmetry, MMTS BUE 4/5, BLE 0, gait and stance not assessed Results & Data Results & Data Vital Signs (Past 12 Hours) Vital Signs Temp Pulse Pulse Resp BP BP Pulse Ox 04/18/24 10:06 86 18 04/18/24 10:00 128/71 04/18/24 10:00 128/71 04/18/24 10:00 128/71 04/18/24 09:54 86 20 04/18/24 09:18 88 18 04/18/24 09:00 130/70 04/18/24 09:00 130/70 04/18/24 09:00 130/70 04/18/24 09:00 130/70 04/18/24 09:00 130/70 04/18/24 09:00 130/70 04/18/24 09:00 130/70 04/18/24 08:42 91 H 20 04/18/24 08:03 100 H 17 95 04/18/24 08:00 116/65 04/18/24 07:57 102 H 16 04/18/24 07:36 107/72 04/18/24 07:36 104 H 18 107/72 95 04/18/24 07:12 99 H 04/18/24 04:00 134 H 24 04/18/24 03:09 119 H 24 152/73 H 94 04/18/24 01:00 122 H 27 H 137/87 96 04/18/24 00:24 04/18/24 00:00 37.0 C 120 H 20 121/97 96 Pulse Ox O2 Del Method O2 Del Method 04/18/24 10:06 04/18/24 10:00 04/18/24 10:00 04/18/24 10:00 04/18/24 09:54 04/18/24 09:18 04/18/24 09:00 04/18/24 09:00 04/18/24 09:00 04/18/24 09:00 04/18/24 09:00 04/18/24 09:00 04/18/24 09:00 04/18/24 08:42 04/18/24 08:03 Room Air 04/18/24 08:00 04/18/24 07:57 04/18/24 07:36 04/18/24 07:36 Room Air 04/18/24 07:12 04/18/24 04:00 04/18/24 03:09 Room Air 04/18/24 01:00 Room Air 04/18/24 00:24 96 Room Air 04/18/24 00:00 Room Air
[2024-04-18] MEDS: oxyCODONE HCL IR 5 MG TAB (IMMEDIATE RELEASE) PO PRN (15:15)
[2024-04-18] MEDS: cefTRIAXone SODIUM 2,000 MG/50 ML BAG IV SCH (20:06)
--- NOTE | 2024-04-19 05:44 | Electrocardiogram Report ---
Test Reason : Blood Pressure : */* mmHG Vent. Rate : 92 BPM Atrial Rate : 92 BPM P-R Int : 124 ms QRS Dur : 88 ms QT Int : 332 ms P-R-T Axes : 74 83 44 degrees QTcB Int : 410 ms Normal sinus rhythm Normal ECG No previous ECGs available Confirmed by Sky Riggs ([id number]) on 04/19/2024 5:44:01 AM Referred By: REFERRED SELF Confirmed By: Sky Riggs
[2024-04-19] MEDS: CYANOCOBALAMIN (B-12) 100 MCG TABLET PO SCH (07:33)
[2024-04-19] MEDS: FERROUS SULFATE 325 MG TAB PO SCH (07:33)
[2024-04-19] MEDS: FOLIC ACID 1 MG TAB PO SCH (07:34)
[2024-04-19] MEDS: ADVANCED PROBIOTIC 625 MG CAPSULE PO SCH (07:34)
[2024-04-19 08:03] LABS: Hematocrit (blood only) 35.2 % (42.0-52.0); Hemoglobin 11.4 g/dl (14.0-18.0); Mean Corpuscular Hemoglobin 29.4 pg (25.0-34.0); Mean Corpuscular Hgb Conc 32.4 g/dL (32.0-36.0); Mean Corpuscular Volume 90.7 fL (80.0-100.0); Platelet Count 307 K/uL (130-400); RDW Coefficient of Variation 13.9 % (11.5-14.5); RDW Standard Deviation 46.3 fL (36.4-46.3); Red Blood Count 3.88 M/uL (4.70-6.10)
[2024-04-19 08:17] LABS: BUN Creatinine Ratio 10.2 (10-20); Calcium 8.5 mg/dl (8.6-10.3); Creatinine Clr Calc Pharmacy 100.1 ml/min; Magnesium 1.9 mg/dl (1.7-2.4); Phosphorus 3.1 mg/dl (2.5-4.9); Potassium 4.1 mmol/L (3.5-5.1)
--- NOTE | 2024-04-19 13:22 | Hospitalist Progress Note ---
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 Patient also reports pleuritic chest pain at the bases and shortness of breath. He is being managed for the following: Sepsis secondary to community-acquired pneumonia Rule out PE given pruritic chest pain complaints Patient comes in with cough and fever. Admitting WBC, procalcitonin, pulse rate elevated. Lactate WNL. CT chest with no PE, suggestive of bilateral airspace opacities concerning for atypical pneumonia. Patient started on ceftriaxone 04/18 and doxycycline 04/18, continue. c/w probiotic. Patient has been afebrile, reports feeling better and slight improvement in his cough. Follow admitting blood culture - [id number] Follow-up with chest imaging in 2 to 3 months to document resolution of pneumonia. Prediabetes: A1c of 5.8 this admission. New diagnosis. Will consult hematology nurse educator. Encourage lifestyle modification, follow-up with A1c in 3 months and closely follow-up with PCP for ongoing monitoring. Likely new onset anemia: Hemoglobin of 15.4 in 2021. Admitting hemoglobin of 13.3, iron level at 11, low normal vitamin B12 and folate level. c/w iron/B12/folic acid supplementation. Repeat iron studies in 3 months. Patient denies overt bleed symptoms, and will possibly need GI evaluation as an outpatient for colonoscopy. Await FOBT, remains uncollected. Abnormal CTA chest: Scattered pulmonary nodules up to 4 mm noted. Follow-up CT scan in 12 months time. Other chronic medical conditions: Continue with/resume home meds as and when able. hyperlipidemia, not on statin Rx neurogenic bladder/paraplegia secondary to traumatic thoracic spinal cord injury GERD, stable on H2 kevin genital herpes on chronic HSV Rx Hyperglycemia rule out DM New onset anemia, patient denies overt bleed symptoms DVT prophylaxis with Lovenox subcu Full code Text document was generated using [employer] voice recognition software. It may contain grammatical or spelling errors. Kindly contact undersigned for clarification of any documentation item in question. Admission and Anticipated Discharge Date Admission Date: April 17, 2024 Subjective Patient was seen and examined at bedside. Patient was lying in bed, on room air, NAD, resting comfortably. Patient reports improving cough, eating ok and moving bowels ok. Patient has been afebrile. Physical Exam Physical Exam: GENERAL: NAD, no respiratory distress SKIN: Pallor, warm HEENT: nl palpebral conjunctivae, no ptosis, moist buccal mucosa NECK : Supple, no tenderness CHEST : Decreased breath sounds, no tenderness HEART : RRR, no obvious murmurs ABDOMEN: Some distention, nontender RECTAL : Refused EXTREMITIES : No LE swelling/tenderness, palpable pulses, no other conspicuous deformities noted NEUROLOGIC : Coherent, no facial asymmetry, MMTS BUE 5/5, BLE 0, gait and stance not assessed Results & Data Results & Data Vital Signs (Past 12 Hours) Vital Signs Temp Pulse Pulse Resp BP Pulse Ox O2 Del Method 04/19/24 11:40 36.6 C 89 20 116/68 95 Room Air 04/19/24 09:44 Room Air 04/19/24 08:05 36.7 C 79 16 130/70 97 Room Air 04/19/24 07:12 97 H 04/19/24 02:28 36.5 C 76 18 117/72 98 Room Air
[2024-04-19 23:28] VITALS: O2SAT 95
[2024-04-20 07:30] LABS: Hematocrit (blood only) 38.2 % (42.0-52.0); Hemoglobin 12.3 g/dl (14.0-18.0); Mean Corpuscular Hemoglobin 28.8 pg (25.0-34.0); Mean Corpuscular Hgb Conc 32.2 g/dL (32.0-36.0); Mean Corpuscular Volume 89.5 fL (80.0-100.0); Mean Platelet Volume 9.7 fL (9.4-12.4); Platelet Count 382 K/uL (130-400); RDW Coefficient of Variation 13.5 % (11.5-14.5); RDW Standard Deviation 44.5 fL (36.4-46.3); Red Blood Count 4.27 M/uL (4.70-6.10); White Blood Count 6.51 K/ul (4.8-10.8)
--- NOTE | 2024-04-20 10:53 | Discharge Summary ---
Date of Service April 20, 2024 Admission HPI Per Admitting Provider History obtained from patient and records. 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 Few days history of junky cough symptoms associated with fever chills. Pleuritic chest pain associated with SOB. Denies aspiration. Denies abdominal pain/hematuria/black/bloody stools. Not sure about sick contacts. Vancomycin, ceftriaxone and azithromycin administered at the ER. 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 Admission Exam Per Admitting Provider GENERAL: Slightly uncomfortable, no respiratory distress SKIN: Pallor, warm HEENT: Pale palpebral conjunctivae, no ptosis, dry buccal mucosa NECK : Supple, no tenderness CHEST : Decreased breath sounds, no tenderness HEART : Tachycardic, no obvious murmurs ABDOMEN: Some distention, nontender RECTAL : Refused EXTREMITIES : No LE swelling/tenderness, palpable pulses, no other conspicuous deformities noted NEUROLOGIC : Coherent, no facial asymmetry, MMTS BUE 4/5, BLE 0, episodic RLE spasm, gait and stance not assessed Principal Diagnosis Sepsis secondary to community-acquired pneumonia Ruled out PE given pruritic chest pain complaints Prediabetes New onset anemia Abnormal CTA chest Discharge Exam GENERAL: NAD, no respiratory distress SKIN: Pallor, warm HEENT: nl palpebral conjunctivae, no ptosis, moist buccal mucosa NECK : Supple, no tenderness CHEST : Decreased breath sounds, no tenderness HEART : RRR, no obvious murmurs ABDOMEN: Some distention, nontender EXTREMITIES : No LE swelling/tenderness, palpable pulses, no other conspicuous deformities noted NEUROLOGIC : Coherent, no facial asymmetry, MMTS BUE 5/5, BLE 0, gait and stance not assessed Discharge Data Allergies Allergy/AdvReac Type Severity Reaction Status Date / Time Penicillins Allergy Intermediate HIVES Verified 04/17/24 20:49 Consultations 04/17/24 20:30 ED Decision to Admit Stat Ordered Studies 04/17/24 23:06 CT angio chest PE protocol Stat Hospital Course (1) Sepsis: 48-year-old male with PMH of HLD, neurogenic bladder, 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 Patient also reports pleuritic chest pain at the bases and shortness of breath. He was managed for the following: Sepsis secondary to community-acquired pneumonia Rule out PE given pruritic chest pain complaints Patient comes in with cough and fever. Admitting WBC, procalcitonin, pulse rate elevated. Lactate WNL. CT chest with no PE, suggestive of bilateral airspace opacities concerning for atypical pneumonia. Patient started on ceftriaxone 04/18 and doxycycline 04/18, continue. c/w probiotic. to po atb on dc. 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 Follow admitting blood culture - [id number] Follow-up with chest imaging in 2 to 3 months to document resolution of pneumonia. Prediabetes: A1c of 5.8 this admission. New diagnosis. Will consult agricultural extension educator. Encourage lifestyle modification, follow-up with A1c in 3 months and closely follow-up with PCP for ongoing monitoring. Likely new onset anemia: Hemoglobin of 15.4 in 2021. Admitting hemoglobin of 13.3, iron level at 11, low normal vitamin B12 and folate level. c/w iron/B12/folic acid supplementation. Repeat iron studies in 3 months. Patient denies overt bleed symptoms, and will possibly need GI evaluation as an outpatient for colonoscopy. Await FOBT, remains uncollected. Abnormal CTA chest: Scattered pulmonary nodules up to 4 mm noted. Follow-up CT scan in 12 months time. Other chronic medical conditions: Continue with/resume home meds as and when able. hyperlipidemia, not on statin Rx neurogenic bladder/paraplegia secondary to traumatic thoracic spinal cord injury GERD, stable on H2 kevin genital herpes on chronic HSV Rx Hyperglycemia rule out DM New onset anemia, patient denies overt bleed symptoms DVT prophylaxis with Lovenox subcu Full code Patient is being discharged home with following instructions at the point of discharge: Follow-up with your primary care physician within a week time and likely you will need labs CBC/CMP/magnesium/phosphorus. You were treated for pneumonia while in hospital, you will be discharged on antibiotic, complete the course as prescribed. Start both your PO antibiotic from tonight evening. You will need repeat CT scan of the chest in 2 to 3 months time to document resolution of your pneumonia. You are noted to have scattered pulmonary nodules up to [address] scan chest done while inpatient, you will need repeat CT scan in 12 months time to follow-up on this. Your blood culture results have been negative so far, follow-up on the final results of your blood culture during your PCP visit within a week time. You are noted to have prediabetes with A1c of 5.8 this admission. Recommend lifestyle modification, weight loss, daily exercise regimen. Follow-up on A1c in 3 months time, coordinate with your PCP office to set up the test and long- term monitoring. You are noted to have new onset anemia, you will be started on iron/vitamin B12/folic acid upon discharge. You will need repeat iron studies in 3 months time, coordinate with your PCP office to set up the test. You will benefit from GI physician evaluation as an outpatient, coordinate with your PCP office to set up the referral. Take your medications as prescribed. Please make sure that you are able to get your medications today by calling your pharmacy before you leave the hospital so that your treatment continuity is not broken. Text document was generated using [employer] voice recognition software. It may contain grammatical or spelling errors. Kindly contact undersigned for clarification of any documentation item in question. Home Health Attestation I certify that this patient is under my care and that I, or a physicians occupational therapy assistant working with me, had a face to-face encounter that meets the home health [id number] encounter requirements with this patient. The encounter with the patient was in whole, or in part, for the following medical condition, which is the primary reason for home health care (list medical condition): I certify that, based on my findings, the following services are medically necessary home health services: My clinical findings support the need for the above services because: Further, I certify that my clinical findings support that this patient is homebound (i.e. absences from home require considerable and taxing effort and are for medical reasons or temple services or infrequently or of short duration when for other reasons) because: Certification for Home Health Services: Based on the above findings, I certify that this patient is confined to the home and needs intermittent group home care, physical therapy and/or speech therapy or continues to need occupational therapy. The patient is under my care, and I have initiated the establishment of the plan of care. This patient will be followed by a physician who will periodically review the plan of care. Total Time Total Time Spent Total Time Spent (In Minutes): 35 Discharge Plan Discharge Items Patient Disposition: Home - Self-Care Reason For Visit: SEPSIS Discharge Diagnosis: Sepsis secondary to community-acquired pneumonia Ruled out PE given pruritic chest pain complaints Prediabetes New onset anemia Abnormal CTA chest Activity: Resume your previous activity Non-emergency contact: Primary Care Provider Call non-emergency contact if: you have any medication questions Follow-up/Referrals: Rigoberto Rodriguez MD [Primary Care Provider] - (Date & Time 04/26/2024 2:00 PM Provider: Alexis Valverde MD [facility] ) Diet: Regular Addtl Attending Provider Instructions: Follow-up with your primary care physician within a week time and likely you will need labs CBC/CMP/magnesium/phosphorus. You were treated for pneumonia while in hospital, you will be discharged on antibiotic, complete the course as prescribed. Start both your PO antibiotic from tonight evening. You will need repeat CT scan of the chest in 2 to 3 months time to document resolution of your pneumonia. You are noted to have scattered pulmonary nodules up to [address] scan chest done while inpatient, you will need repeat CT scan in 12 months time to follow-up on this. Your blood culture results have been negative so far, follow-up on the final results of your blood culture during your PCP visit within a week time. You are noted to have prediabetes with A1c of 5.8 this admission. Recommend lifestyle modification, weight loss, daily exercise regimen. Follow-up on A1c in 3 months time, coordinate with your PCP office to set up the test and long- term monitoring. You are noted to have new onset anemia, you will be started on iron/vitamin B12/folic acid upon discharge. You will need repeat iron studies in 3 months time, coordinate with your PCP office to set up the test. You will benefit from GI physician evaluation as an outpatient, coordinate with your PCP office to set up the referral. Take your medications as prescribed. Please make sure that you are able to get your medications today by calling your pharmacy before you leave the hospital so that your treatment continuity is not broken. Pending Studies at Discharge: Yes Stand-Alone Forms: My [employer], Smoking Cessation Medications and DC Order Prescriptions: New doxycycline hyclate 100 mg Capsule 100 mg PO BID 3 Days Qty: 6 0RF ferrous sulfate 325 mg (65 mg iron) Tablet,Delayed Release (Dr/Ec) 325 mg PO QAM Qty: 30 0RF Advanced Probiotic 625 mg (10 billion cell) Capsule 1 cap PO DAILY 7 Days Qty: 7 0RF cyanocobalamin (vitamin B-12) [Vitamin B-12] 100 mcg Tablet 100 mcg PO QAM Qty: 30 0RF folic acid 1 mg Tablet 1 mg PO QAM Qty: 30 0RF cefdinir 300 mg capsule 300 mg PO BID 5 Days Qty: 10 0RF Continued oxybutynin chloride 10 mg Tablet Extended Release 24hr 10 mg PO BID acyclovir 400 mg Tablet 400 mg PO BID oxycodone 5 mg Tablet 5 mg PO Q4H PRN (Reason: Pain) Medical Marijuana 1 dose inhalation UD PRN (Reason: NEEDED) Rx Instructions: USES VIA VAPING famotidine 20 mg tablet 20 mg PO BID gabapentin 300 mg capsule 600 mg PO TID Discharge Orders: Discharge Order (Routine); Ordered 04/20/24 Ordered By: Esdras Matson/Other Patient Handouts: Prediabetes Admission Data Admit Date/Time: 04/17/24 22:48 Attending Provider: Esdras Steven Admit Provider: Kota Hough Primary Care Provider: Rigoberto Rodriguez Other Providers: Kota Hough
[2024-04-20 11:42] VITALS: RESP 20; TEMP 97.9
[2024-04-20 12:16] VITALS: BP 133/76; PULSE 89
== END 2024-04-20 13:18 | disposition home or self-care (01) | DRG 871 ==
LOC: ED 18:52 → EDINP 22:48 → SUATTDRO 22:48 → 2W 04-18 11:55